=== PATIENT | male | born 1950 | race Caucasian/White ===

== ENCOUNTER → 2017-05-13 | Day surgery (SDC) | payer OTHER ==
[~2017-05-13] VITALS: Ht 167.6 cm; Wt 93.9 kg
[~2017-05-13] MED LIST: ACETAMINOPHEN 325 MG TAB PO PRN; ALBUMIN 25% INJ 100 ML IV PRN; AMLO5TAB2 PO; APIX2.5T PO; ASMA220A INH; ATOR40TA16 PO; BETA10SO TOPICAL; BUPIVACAINE HCL PF 0.5% 30 ML VIAL ONE; CHLORHEXIDINE GLUCONATE 2 % 1 PACK (2 CLOTHS) TOPICAL PRN; COLL30T TOPICAL; FAMO20TA2 PO; FURO1TAB60 PO; GELATIN 12 MM/7 MM FOAM TOP PRN; GENTAMICIN SULFATE (DIALYSIS USE ONLY) 20 MG/2 ML VIAL OTHER PRN; HEPARIN SODIUM - IV 10,000 UNITS/10 ML VIAL IV FLUSH PRN; HEPARIN SODIUM - IV 10,000 UNITS/10 ML VIAL ONE; HEPARIN SODIUM - IV 10,000 UNITS/10 ML VIAL PRN; HEPARIN-NS/PF INJ 0 ML ONE; HUMA100I3 SQ; HYDR-3799 PO; INSU1INJ5 SQ; INSULIN HUMAN REGULAR 1,000 UNITS/10 ML VIAL SQ PRN; IPRASOL INH; LACTATED RINGER'S 1000 ML IV PRN; LISI2.5T3 PO; MANNITOL 12.5 GM/50 ML VIAL IV PRN; METO25TA3 PO; METO5TAB PO; METOPROLOL TARTRATE 25 MG TAB PO PRN; NITROGLYCERIN 0.4 MG SL 25 TABS/BTL SL PRN; ONDANSETRON HCL 4 MG/2 ML VIAL IV PUSH PRN; POTA-163 PO; POVIDONE IODINE 5% (ANTISEPSIS KIT) 4 APPLICATIONS EACH NARE PRN; PROTAMINE SULFATE 50 MG/5 ML VIAL ONE; RESP: ALBUTEROL 2.5 MG/IPRATROPIUM 0.5 MG NEB (PRN) ONE; SODIUM CHLOR 0.9% 1000 ML INJ 1,000 ML IV PRN; SODIUM CHLOR 0.9% 1000 ML INJ 1,000 ML OTHER PRN; SODIUM CHLORID 0.9% 500 ML IV PRN; SODIUM CHLORIDE 0.9% FLUSH 10 ML FLUSH IV FLUSH PRN; VITA250C3 CHEW; ceFAZolin 2 GM PREMIX 0 ML ONE; cloNIDine HCL 0.1 MG TAB PO PRN; diphenhydrAMINE HCL 25 MG CAP PO PRN
[2017-05-13 08:35] LABS: HEMATOCRIT 34.6 % (39.0-51.0); MEAN CORPUSCULAR HEMOGLOBIN 25.9 PG (27.0-34.0); MEAN CORPUSCULAR HGB CONC 30.4 % (32.0-36.0); PLATELET COUNT 360 TH/MM3 (150-450); RED BLOOD COUNT 4.07 MIL/MM3 (4.50-5.90); RED CELL DISTRIBUTION WIDTH 18.5 % (11.6-17.2); WHITE BLOOD COUNT 23.3 TH/MM3 (4.0-11.0)
[2017-05-13 08:36] LABS: HEMO FLAGS AUTO DIFF
--- NOTE | 2017-05-13 08:36 | PD.VS.PN ---
Pre-operative Note Pre-operative diagnosis: B LE tissue loss, PAD Planned procedure: Aortogram w/ B LE angiogram with possible intervention Interval History: Pt dana HD this week-end. No F/C or other change that would preclude surgery. Labs: Laboratory Results Test 05/13/17 08:15 Blood: none needed Imaging: will make in OR Orders: NPO Post-operative destination: PACU Operative site marked: No (bilateral) Consent: Informed consent has been obtained from Griselda Degroot. I have explained the procedure in detail and discussed the risks, benefits, and potential complications. All questions have been answered. Patient contact information: "Toña" [phone] Elliott Almaguer MD May 13, 2017 08:36
[2017-05-13 08:40] LABS: INTERNATIONAL NORMALIZED RATIO 1.2 RATIO
[2017-05-13 08:46] LABS: BICARBONATE 24.5 MEQ/L (21.0-32.0); POTASSIUM 6.1 MEQ/L (3.5-5.1)
--- NOTE | 2017-05-13 09:20 | PD.VS.PN ---
Subjective Subjective/Hospital Course Pt with hyperkalemia despite having regular HD Sat. Needs to be lower for GETA for planned intervention. will reschedule Objective Vitals/I&O Date Time Temp Pulse Resp B/P (MAP) Pulse Ox O2 Delivery O2 Flow Rate FiO2 05/13/17 08:11 98.2 62 24 124/60 (81) 92 Laboratory Laboratory Tests Test 05/13/17 08:15 White Blood Count 23.3 Red Blood Count 4.07 Hemoglobin 10.5 Hematocrit 34.6 Mean Corpuscular Volume 85.0 Mean Corpuscular Hemoglobin 25.9 Mean Corpuscular Hemoglobin Concent 30.4 Red Cell Distribution Width 18.5 Platelet Count 360 Mean Platelet Volume 9.5 CBC Comment AUTO DIFF Prothrombin Time 12.0 Prothromb Time International Ratio 1.2 Blood Urea Nitrogen 37 Creatinine 5.00 Random Glucose 116 Calcium Level 9.1 Sodium Level 137 Potassium Level 6.1 Chloride Level 107 Carbon Dioxide Level 24.5 Anion Gap 6 Estimat Glomerular Filtration Rate 12 Assessment and Plan Plan reschedule B LE angiogram. Discharge Planning My office will call for new OR date. Elliott Almaguer MD May 13, 2017 09:20
[2017-05-13 09:32] LABS: NEUTROPHIL # MANUAL DIFF 21.4 TH/MM3 (1.8-7.7); PLATELET ESTIMATE SMEAR NORMAL (NORMAL); PLATELET MORPHOLOGY NORMAL (NORMAL); POLYS (SEG NEUTROPHILS) 92 % (16-70); SCAN/DIFF FINAL DIFF MANUAL; TOXIC VACUOLATION PRESENT (NONE SEEN); WBC DIFF SAMPLE 100
--- NOTE | 2017-05-13 11:56 | PD.CONS ---
HPI Service Nephrology Consult Requested By Reason for Consult ESRD on HD, hyperkalemia Primary Care Physician No Primary Care Physician History of Present Illness This is a 66 y/o German speaking male who is in same day surgery for planned angiogram of lower extremiites. He has ESRD is on HD TTS, due tomorrow, also has DM, anemia, HTN. His K is 6.1 today, procedure was cancelled. We were consulted to assist with management. His is present. (Bouchra Mccurdy) Review of Systems ROS Limitations: Language Barrier Constitutional: COMPLAINS OF: Fatigue (Bouchra Mccurdy) Past Family Social History Allergies: Coded Allergies: No Known Allergies (Unverified , 05/13/17) Past Medical History ESRD on HD TTS Anemia Metabolic bone disorder DM II PVD/PAD Past Surgical History Permcath Reported Medications He cannot recall names of medications Active Ordered Medications Current Medications Medications (Trade) Dose Ordered Sig/Henrik Route Start Time Stop Time Status Last Admin Lactated Ringer's 1,000 ml @ 30 mls/hr Q24H PRN IV 05/13/17 08:30 05/16/17 08:29 Sodium Chloride 500 ml @ 30 mls/hr [id number] PRN IV 05/13/17 08:30 05/16/17 08:29 05/13/17 08:24 (Lopressor) 25 mg HYPERION DEVELOPER PRN PO 05/13/17 08:30 05/16/17 08:29 (Betadine 5% Antisepsis Kit) 1 applic HYPERION DEVELOPER PRN EACH NARE 05/13/17 08:30 05/16/17 08:29 05/13/17 08:24 (Chlorhexidine 2% Cloth) 3 pack HYPERION DEVELOPER PRN TOPICAL 05/13/17 08:30 05/16/17 08:29 05/13/17 08:24 (NovoLIN R INJ) See Protocol Table ... HYPERION DEVELOPER PRN SQ 05/13/17 08:30 05/16/17 08:29 Family History Non contributory Social History Non smoker He is (Bouchra Mccurdy) Physical Exam Vital Signs Vital Signs Date Time Temp Pulse Resp B/P (MAP) Pulse Ox O2 Delivery O2 Flow Rate FiO2 05/13/17 08:11 98.2 62 24 124/60 (81) 92 Physical Exam male, awake and alert German speaking S1/S2, RRR Lungs clear Ext with minor edema, poor pulses Permcath right chest Laboratory Laboratory Tests Test 05/13/17 08:15 White Blood Count 23.3 Red Blood Count 4.07 Hemoglobin 10.5 Hematocrit 34.6 Mean Corpuscular Volume 85.0 Mean Corpuscular Hemoglobin 25.9 Mean Corpuscular Hemoglobin Concent 30.4 Red Cell Distribution Width 18.5 Platelet Count 360 Mean Platelet Volume 9.5 CBC Comment AUTO DIFF Differential Total Cells Counted 100 Neutrophils % (Manual) 92 Lymphocytes % 6 Monocytes % 2 Neutrophils # (Manual) 21.4 Differential Comment FINAL DIFF MANUAL Toxic Vacuolation PRESENT Platelet Estimate NORMAL Platelet Morphology Comment NORMAL Prothrombin Time 12.0 Prothromb Time International Ratio 1.2 Blood Urea Nitrogen 37 Creatinine 5.00 Random Glucose 116 Calcium Level 9.1 Sodium Level 137 Potassium Level 6.1 Chloride Level 107 Carbon Dioxide Level 24.5 Anion Gap 6 Estimat Glomerular Filtration Rate 12 (Bouchra Mccurdy) Result Diagram: 05/13/17 0815 05/13/17 0815 Assessment and Plan Problem List: (1) ESRD (end stage renal disease) ICD Codes: N18.6 - End stage renal disease Plan: Dialysis today, orders entered. After dialysis he can be discharged He can resume outpatient TTS HD tomorrow Tolerating oral fluids/food Has Permcath for HD (2) Hyperkalemia ICD Codes: E87.5 - Hyperkalemia Plan: Dialysis today on a 1K bath Low K discussed Should be placed on D10 if he is NPO next admission to prevent hyperkalemia (3) PAD (peripheral artery disease) ICD Codes: I73.9 - Peripheral vascular disease, unspecified Plan: To follow with vascular after discharge (4) Diabetes ICD Codes: E11.9 - Type 2 diabetes mellitus without complications Plan: Insulin as needed (Bouchra Mccurdy) Assessment and Plan patient was seen and examined. Dialysis today on account of hyperkalemia. Discussed with the patient and his . (Jimmy Shah MD) Bouchra Mccurdy May 13, 2017 11:56 Jimmy Shah MD May 13, 2017 20:48
[2017-05-13 16:30] VITALS: BP 139/63; PULSE 103; RESP 18; TEMP 98.6; O2SAT 93
--- NOTE | 2017-05-13 16:32 | EKG ---
Date Performed: 05/13/2017 Time Performed: 06:50:43 PTAGE: 66 years EKG: Sinus rhythm BORDERLINE LEFT AXIS DEVIATION LEFT VENTRICULAR HYPERTROPHY AND ST-T CHANGE ABNORMAL ECG NO PREVIOUS TRACING DOCTOR: Harrison Michaud Interpretating Date/Time 05/13/2017 16:30:57
== END | disposition home or self-care (01) ==
LOC: HSDC 05:33
PROVIDERS: ATTEND Surgery
DX: I73.9 Peripheral vascular disease, unspecified (principal); E87.5 Hyperkalemia; N18.6 End stage renal disease; D63.1 Anemia in chronic kidney disease; I12.0 Hypertensive chronic kidney disease with stage 5 chronic kidney disease or end stage renal disease; E11.9 Type 2 diabetes mellitus without complications; Z99.2 Dependence on renal dialysis; Z79.4 Long term (current) use of insulin; Z53.09 Procedure and treatment not carried out because of other contraindication
CPT/HCPCS: 80048; 82948; 85007; 85027; 85610; 90935; 93005; 94664; 96374; 99211; J7040; G0463; J0690; J1644; J2720

== ENCOUNTER 2017-05-30 22:28 | Inpatient (IN) | payer OTHER ==
[2017-05-31 00:41] LABS: AUTOMATED NEUTROPHIL # 12.7 TH/MM3 (1.8-7.7); BASOPHIL # 0.1 TH/MM3 (0-0.2); BASOPHIL % 0.6 % (0.0-2.0); EOSINOPHIL # 0.3 TH/MM3 (0-0.4); HEMATOCRIT 34.2 % (39.0-51.0); HEMO FLAGS DIFF FINAL; HEMOGLOBIN 10.7 GM/DL (13.0-17.0); LYMPH % 8.9 % (9.0-44.0); LYMPHOCYTE # 1.4 TH/MM3 (1.0-4.8); MEAN CELL VOLUME 80.8 FL (80.0-100.0); MEAN CORPUSCULAR HEMOGLOBIN 25.3 PG (27.0-34.0); MEAN CORPUSCULAR HGB CONC 31.2 % (32.0-36.0); MEAN PLATELET VOLUME 8.8 FL (7.0-11.0); MONO % 6.6 % (0.0-8.0); NEUT % 81.9 % (16.0-70.0); PLATELET COUNT 344 TH/MM3 (150-450); RED BLOOD COUNT 4.23 MIL/MM3 (4.50-5.90); WHITE BLOOD COUNT 15.5 TH/MM3 (4.0-11.0)
[2017-05-31 01:05] LABS: ALBUMIN 2.3 GM/DL (3.4-5.0); ALKALINE PHOSPHATASE 661 U/L (45-117); ALT (GPT) 29 U/L (12-78); ANION GAP 8 MEQ/L (5-15); AST (GOT) 54 U/L (15-37); BICARBONATE 24.5 MEQ/L (21.0-32.0); BLOOD UREA NITROGEN 34 MG/DL (7-18); CALCIUM 8.6 MG/DL (8.5-10.1); CHLORIDE 105 MEQ/L (98-107); CREATININE 3.91 MG/DL (0.60-1.30); GLOMERULAR FILTRATION RATE 15 ML/MIN (>89); GLUCOSE,RANDOM 123 MG/DL (74-106); SODIUM (NA) 137 MEQ/L (136-145); TOTAL BILIRUBIN ADULT 0.5 MG/DL (0.2-1.0); TOTAL PROTEIN 7.8 GM/DL (6.4-8.2)
[2017-05-31 01:13] LABS: POTASSIUM 6.6 MEQ/L (3.5-5.1)
[2017-05-31] MEDS: VANCOMYCIN INJ 1,000 MG in SODIUM CHLOR 0.9% 250 ML INJ 250 ML IV (02:12)
[2017-05-31] MEDS ORDERED: MAGNESIUM HYDROXIDE SUSP 30 ML CUP PO (03:00)
[2017-05-31] MEDS ORDERED: SENNOSIDES 8.6 MG TAB PO (03:00)
[2017-05-31] MEDS ORDERED: HEPARIN SODIUM - SQ 10,000 UNITS/ML VIAL SQ (03:00)
[2017-05-31] MEDS ORDERED: ACETAMINOPHEN 325 MG TAB PO (03:00)
[2017-05-31] MEDS ORDERED: LACTULOSE SYRUP 20 GM/30 ML CUP PO (03:00)
[2017-05-31] MEDS ORDERED: SODIUM CHLORIDE 0.9% FLUSH 10 ML FLUSH IV FLUSH ×3 (03:00→15:30)
[2017-05-31] MEDS ORDERED: ONDANSETRON HCL 4 MG/2 ML VIAL IVP (03:00)
[2017-05-31] MEDS ORDERED: BISACODYL 10 MG SUPP RECTAL (03:00)
[2017-05-31] MEDS ORDERED: hydrALAZINE HCL 25 MG TAB PO (03:00)
[2017-05-31] MEDS: SODIUM POLYSTYRENE SULFONATE SUSP 15 GM/60 ML CUP PO ×2 (03:00→15:00)
[2017-05-31] MEDS ORDERED: NALOXONE HCL 0.4 MG/ML AMP IV PUSH (03:00)
[2017-05-31] MEDS: MOMETASONE INH ×2 (09:00→21:00)
[2017-05-31] MEDS: INSULIN DETEMIR 100 UNITS/ML VIAL SQ ×2 (09:00→23:00)
[2017-05-31] MEDS: SODIUM CHLORIDE 0.9% FLUSH 10 ML FLUSH IV FLUSH ×2 (09:00→22:57)
[2017-05-31] MEDS: APIXABAN 2.5 MG TABLET PO (09:00)
[2017-05-31] MEDS ORDERED: SODIUM CHLOR 0.9% 1000 ML INJ 1,000 ML IV (09:34)
[2017-05-31] MEDS ORDERED: SODIUM CHLOR 0.9% 1000 ML INJ 1,000 ML OTHER ×3 (09:34→15:25)
[2017-05-31] MEDS ORDERED: diphenhydrAMINE HCL 25 MG CAP PO (09:45)
[2017-05-31] MEDS ORDERED: GLUCAGON 1 MG/ML VIAL OTHER (09:45)
[2017-05-31] MEDS ORDERED: HEPARIN SODIUM - IV 10,000 UNITS/10 ML VIAL (09:45)
[2017-05-31] MEDS ORDERED: ONDANSETRON HCL 4 MG/2 ML VIAL IV PUSH ×2 (09:45→15:30)
[2017-05-31] MEDS ORDERED: GENTAMICIN SULFATE 20 MG/2 ML VIAL OTHER (09:45)
[2017-05-31] MEDS ORDERED: MANNITOL 12.5 GM/50 ML VIAL IV ×2 (09:45→15:30)
[2017-05-31] MEDS ORDERED: HEPARIN SODIUM - IV 10,000 UNITS/10 ML VIAL IV FLUSH ×2 (09:45→15:30)
[2017-05-31] MEDS ORDERED: cloNIDine HCL 0.1 MG TAB PO ×2 (09:45→15:30)
[2017-05-31] MEDS ORDERED: GELATIN 12 MM/7 MM FOAM TOP ×2 (09:45→15:30)
[2017-05-31] MEDS ORDERED: NITROGLYCERIN 0.4 MG SL 25 TABS/BTL SL ×2 (09:45→15:30)
[2017-05-31] MEDS ORDERED: ALBUMIN 25% INJ 100 ML IV ×2 (09:45→15:30)
[2017-05-31] MEDS: amLODIPine BESYLATE 5 MG TAB PO (09:57)
[2017-05-31] MEDS: FAMOTIDINE 20 MG TAB PO (09:57)
[2017-05-31] MEDS: LISINOPRIL 5 MG TAB PO ×2 (09:57→22:56)
[2017-05-31] MEDS: FUROSEMIDE 40 MG TAB PO ×2 (09:57→22:57)
[2017-05-31] MEDS: METOPROLOL TARTRATE 25 MG TAB PO ×2 (09:57→22:55)
[2017-05-31] MEDS: DOCUSATE SODIUM 50 MG/SENNA 8.6 MG TAB PO ×2 (09:58→21:00)
[2017-05-31] MEDS: ESCITALOPRAM OXALATE 10 MG TAB PO (09:58)
[2017-05-31 11:07] LABS: POTASSIUM 5.6 MEQ/L (3.5-5.1)
[2017-05-31] MEDS: INSULIN ASPART SUPPLEMENTAL SCALE SQ ×3 (12:00→23:00)
[2017-05-31] MEDS: ACETAMINOPHEN 325 MG TAB PO (15:00)
[2017-05-31] MEDS: ATORVASTATIN 40 MG TAB PO (22:54)
[2017-06-01] MEDS: INSULIN ASPART SUPPLEMENTAL SCALE SQ ×4 (08:00→21:00)
[2017-06-01] MEDS: MOMETASONE INH ×2 (09:00→21:00)
[2017-06-01] MEDS: DEXTROSE 50% IN WATER 50 ML VIAL(D50) IV PUSH ×2 (11:28→11:50)
[2017-06-01] MEDS: SODIUM CHLOR 0.9% 1000 ML INJ 1,000 ML IV (11:28)
[2017-06-01] MEDS: GENTAMICIN SULFATE 20 MG/2 ML VIAL OTHER (11:29)
[2017-06-01] MEDS: EPOETIN ALFA 10,000 UNITS/ML VIAL IV PUSH (11:29)
[2017-06-01] MEDS: HEPARIN SODIUM - IV 10,000 UNITS/10 ML VIAL (11:29)
[2017-06-01] MEDS: SODIUM CHLORIDE 0.9% FLUSH 10 ML FLUSH IV FLUSH ×2 (13:17→22:10)
[2017-06-01] MEDS: METOPROLOL TARTRATE 25 MG TAB PO ×2 (13:18→22:11)
[2017-06-01] MEDS: LISINOPRIL 5 MG TAB PO ×2 (13:18→22:12)
[2017-06-01] MEDS: FAMOTIDINE 20 MG TAB PO (13:18)
[2017-06-01] MEDS: amLODIPine BESYLATE 5 MG TAB PO (13:19)
[2017-06-01] MEDS: FUROSEMIDE 40 MG TAB PO ×2 (13:19→22:11)
[2017-06-01] MEDS: DOCUSATE SODIUM 50 MG/SENNA 8.6 MG TAB PO ×2 (13:19→21:00)
[2017-06-01] MEDS: ESCITALOPRAM OXALATE 10 MG TAB PO (13:19)
[2017-06-01] MEDS: INSULIN DETEMIR 100 UNITS/ML VIAL SQ ×2 (13:20→21:00)
[2017-06-01 16:43] LABS: HEMATOCRIT 32.4 % (39.0-51.0); HEMOGLOBIN 10.1 GM/DL (13.0-17.0); MEAN CELL VOLUME 79.9 FL (80.0-100.0); MEAN CORPUSCULAR HGB CONC 31.3 % (32.0-36.0); MEAN PLATELET VOLUME 8.7 FL (7.0-11.0); PLATELET COUNT 323 TH/MM3 (150-450); RED BLOOD COUNT 4.05 MIL/MM3 (4.50-5.90); RED CELL DISTRIBUTION WIDTH 19.1 % (11.6-17.2); WHITE BLOOD COUNT 13.9 TH/MM3 (4.0-11.0)
[2017-06-01 16:46] LABS: HEMO FLAGS AUTO DIFF
[2017-06-01 16:47] LABS: HEMATOLOGY STUDY COMMENT ND
[2017-06-01 17:15] LABS: ANION GAP 8 MEQ/L (5-15); BICARBONATE 29.2 MEQ/L (21.0-32.0); BLOOD UREA NITROGEN 25 MG/DL (7-18); CALCIUM 8.6 MG/DL (8.5-10.1); CHLORIDE 101 MEQ/L (98-107); CREATININE 3.52 MG/DL (0.60-1.30); GLOMERULAR FILTRATION RATE 17 ML/MIN (>89); GLUCOSE,RANDOM 66 MG/DL (74-106); POTASSIUM 3.8 MEQ/L (3.5-5.1); SODIUM (NA) 138 MEQ/L (136-145)
[2017-06-01 17:39] LABS: BANDS 2 % (0-6); LYMPHOCYTES 11 % (9-44); MONOCYTES 9 % (0-8); NEUTROPHIL # MANUAL DIFF 11.1 TH/MM3 (1.8-7.7); POLYS (SEG NEUTROPHILS) 78 % (16-70); WBC DIFF SAMPLE 100
[2017-06-01 17:40] LABS: SCAN/DIFF FINAL DIFF MANUAL
[2017-06-01] MEDS: ACETAMINOPHEN 325 MG TAB PO (18:13)
[2017-06-01] MEDS: ATORVASTATIN 40 MG TAB PO (22:11)
[2017-06-02] MEDS: ACETAMINOPHEN 325 MG TAB PO ×2 (02:14→21:32)
[2017-06-02] MEDS: RESP: ALBUTEROL 2.5 MG/IPRATROPIUM 0.5 MG NEB (SCH) INH ×3 (04:36→20:57)
[2017-06-02] MEDS: INSULIN ASPART SUPPLEMENTAL SCALE SQ ×4 (08:00→21:31)
[2017-06-02] MEDS: INSULIN DETEMIR 100 UNITS/ML VIAL SQ ×2 (08:22→21:00)
[2017-06-02] MEDS: amLODIPine BESYLATE 5 MG TAB PO (08:36)
[2017-06-02] MEDS: METOPROLOL TARTRATE 25 MG TAB PO ×2 (08:36→21:30)
[2017-06-02] MEDS: ESCITALOPRAM OXALATE 10 MG TAB PO (08:38)
[2017-06-02] MEDS: LISINOPRIL 5 MG TAB PO ×2 (08:38→21:30)
[2017-06-02] MEDS: FUROSEMIDE 40 MG TAB PO ×2 (08:38→21:30)
[2017-06-02] MEDS: FAMOTIDINE 20 MG TAB PO (08:38)
[2017-06-02] MEDS: DOCUSATE SODIUM 50 MG/SENNA 8.6 MG TAB PO ×2 (08:38→21:00)
[2017-06-02] MEDS: SODIUM CHLORIDE 0.9% FLUSH 10 ML FLUSH IV FLUSH ×2 (08:39→21:29)
[2017-06-02] MEDS: MOMETASONE INH ×2 (09:00→21:00)
[2017-06-02] MEDS: ATORVASTATIN 40 MG TAB PO (21:29)
[2017-06-03 07:56] LABS: ANION GAP 10 MEQ/L (5-15); BICARBONATE 22.7 MEQ/L (21.0-32.0); BLOOD UREA NITROGEN 41 MG/DL (7-18); CALCIUM 8.2 MG/DL (8.5-10.1); CHLORIDE 101 MEQ/L (98-107); CREATININE 5.52 MG/DL (0.60-1.30); GLOMERULAR FILTRATION RATE 10 ML/MIN (>89); GLUCOSE,RANDOM 125 MG/DL (74-106); POTASSIUM 4.7 MEQ/L (3.5-5.1); SODIUM (NA) 134 MEQ/L (136-145)
[2017-06-03] MEDS: INSULIN ASPART SUPPLEMENTAL SCALE SQ ×4 (08:00→22:45)
[2017-06-03] MEDS: RESP: ALBUTEROL 2.5 MG/IPRATROPIUM 0.5 MG NEB (SCH) INH ×2 (08:03→20:44)
[2017-06-03] MEDS: MOMETASONE INH ×2 (09:00→21:00)
[2017-06-03] MEDS: INSULIN DETEMIR 100 UNITS/ML VIAL SQ ×2 (09:00→22:46)
[2017-06-03] MEDS: IOHEXOL 300 MG/ML 100 ML BTL (for Rad CT) OTHER (10:05)
[2017-06-03] MEDS: HEPARIN-NS/PF INJ 500 ML (10:05)
[2017-06-03] MEDS: BUPIVACAINE HCL PF 0.5% 30 ML VIAL (10:05)
[2017-06-03] MEDS ORDERED: DO NOT ADM ANY ANTICOAGULANT DRUGS (12:00)
[2017-06-03] MEDS: amLODIPine BESYLATE 5 MG TAB PO (13:40)
[2017-06-03] MEDS: FUROSEMIDE 40 MG TAB PO ×2 (13:41→22:26)
[2017-06-03] MEDS: DOCUSATE SODIUM 50 MG/SENNA 8.6 MG TAB PO ×2 (13:42→21:00)
[2017-06-03] MEDS: ESCITALOPRAM OXALATE 10 MG TAB PO (13:42)
[2017-06-03] MEDS: FAMOTIDINE 20 MG TAB PO (13:43)
[2017-06-03] MEDS: METOPROLOL TARTRATE 25 MG TAB PO ×2 (13:45→22:26)
[2017-06-03] MEDS: SODIUM CHLORIDE 0.9% FLUSH 10 ML FLUSH IV FLUSH ×2 (13:46→22:30)
[2017-06-03] MEDS: LISINOPRIL 5 MG TAB PO ×2 (14:29→22:27)
[2017-06-03] MEDS: ACETAMINOPHEN/HYDROcodone 325 MG/5 MG TAB PO ×2 (17:44→22:38)
[2017-06-03] MEDS: ATORVASTATIN 40 MG TAB PO (22:26)
[2017-06-04 07:09] LABS: PHOSPHORUS 7.2 MG/DL (2.5-4.9)
[2017-06-04] MEDS: RESP: ALBUTEROL 2.5 MG/IPRATROPIUM 0.5 MG NEB (SCH) INH ×2 (07:44→20:24)
[2017-06-04] MEDS: INSULIN ASPART SUPPLEMENTAL SCALE SQ ×3 (08:00→21:00)
[2017-06-04] MEDS: MOMETASONE INH ×2 (08:34→21:00)
[2017-06-04] MEDS: DOCUSATE SODIUM 50 MG/SENNA 8.6 MG TAB PO ×2 (09:00→21:00)
[2017-06-04] MEDS: METOPROLOL TARTRATE 25 MG TAB PO ×2 (10:18→21:54)
[2017-06-04] MEDS: FUROSEMIDE 40 MG TAB PO ×2 (10:19→21:54)
[2017-06-04] MEDS: FAMOTIDINE 20 MG TAB PO (10:19)
[2017-06-04] MEDS: ESCITALOPRAM OXALATE 10 MG TAB PO (10:20)
[2017-06-04] MEDS: amLODIPine BESYLATE 5 MG TAB PO (10:20)
[2017-06-04] MEDS: LISINOPRIL 5 MG TAB PO ×2 (10:21→21:55)
[2017-06-04] MEDS: INSULIN DETEMIR 100 UNITS/ML VIAL SQ ×2 (11:38→21:00)
[2017-06-04] MEDS: SEVELAMER CARBONATE 800 MG TAB PO ×2 (12:00→17:00)
[2017-06-04] MEDS: DEXTROSE 50% IN WATER 50 ML VIAL(D50) IV PUSH (13:29)
[2017-06-04] MEDS: SODIUM CHLORIDE 0.9% FLUSH 10 ML FLUSH IV FLUSH ×2 (13:39→21:56)
[2017-06-04 14:23] LABS: AUTOMATED NEUTROPHIL # 13.1 TH/MM3 (1.8-7.7); BASOPHIL # 0.1 TH/MM3 (0-0.2); BASOPHIL % 0.8 % (0.0-2.0); EOSINOPHIL # 0.3 TH/MM3 (0-0.4); EOSINOPHIL % 1.8 % (0.0-4.0); HEMATOCRIT 28.4 % (39.0-51.0); HEMO FLAGS DIFF FINAL; HEMOGLOBIN 8.8 GM/DL (13.0-17.0); LYMPH % 7.2 % (9.0-44.0); LYMPHOCYTE # 1.1 TH/MM3 (1.0-4.8); MEAN CELL VOLUME 79.9 FL (80.0-100.0); MEAN CORPUSCULAR HEMOGLOBIN 24.7 PG (27.0-34.0); MEAN PLATELET VOLUME 8.9 FL (7.0-11.0); MONO % 7.1 % (0.0-8.0); MONOCYTE # 1.1 TH/MM3 (0-0.9); NEUT % 83.1 % (16.0-70.0); PLATELET COUNT 342 TH/MM3 (150-450); RED BLOOD COUNT 3.56 MIL/MM3 (4.50-5.90); RED CELL DISTRIBUTION WIDTH 19.1 % (11.6-17.2); WHITE BLOOD COUNT 15.8 TH/MM3 (4.0-11.0)
[2017-06-04 14:49] LABS: ANION GAP 11 MEQ/L (5-15); BICARBONATE 27.2 MEQ/L (21.0-32.0); BLOOD UREA NITROGEN 53 MG/DL (7-18); CHLORIDE 98 MEQ/L (98-107); CREATININE 6.72 MG/DL (0.60-1.30); GLOMERULAR FILTRATION RATE 8 ML/MIN (>89); GLUCOSE,RANDOM 99 MG/DL (74-106); POTASSIUM 4.4 MEQ/L (3.5-5.1); SODIUM (NA) 136 MEQ/L (136-145)
[2017-06-04] MEDS: GENTAMICIN SULFATE 20 MG/2 ML VIAL OTHER (18:00)
[2017-06-04] MEDS: SODIUM CHLOR 0.9% 1000 ML INJ 1,000 ML OTHER (18:00)
[2017-06-04] MEDS: HEPARIN SODIUM - IV 10,000 UNITS/10 ML VIAL (18:00)
[2017-06-04] MEDS: ATORVASTATIN 40 MG TAB PO (21:54)
[2017-06-05] MEDS: ACETAMINOPHEN/HYDROcodone 325 MG/5 MG TAB PO (07:45)
[2017-06-05] MEDS: RESP: ALBUTEROL 2.5 MG/IPRATROPIUM 0.5 MG NEB (SCH) INH ×2 (07:56→19:48)
[2017-06-05] MEDS: SEVELAMER CARBONATE 800 MG TAB PO ×3 (08:00→17:00)
[2017-06-05] MEDS: INSULIN ASPART SUPPLEMENTAL SCALE SQ ×4 (08:00→21:00)
[2017-06-05] MEDS: INSULIN DETEMIR 100 UNITS/ML VIAL SQ ×2 (09:00→21:00)
[2017-06-05] MEDS: DOCUSATE SODIUM 50 MG/SENNA 8.6 MG TAB PO ×2 (09:00→21:00)
[2017-06-05] MEDS: FAMOTIDINE 20 MG TAB PO (11:48)
[2017-06-05] MEDS: METOPROLOL TARTRATE 25 MG TAB PO ×2 (11:48→21:25)
[2017-06-05] MEDS: LISINOPRIL 5 MG TAB PO ×2 (11:49→21:25)
[2017-06-05] MEDS: FUROSEMIDE 40 MG TAB PO ×2 (11:49→21:00)
[2017-06-05] MEDS: amLODIPine BESYLATE 5 MG TAB PO (11:49)
[2017-06-05] MEDS: ESCITALOPRAM OXALATE 10 MG TAB PO (11:49)
[2017-06-05] MEDS: MOMETASONE INH (21:00)
[2017-06-05] MEDS: ATORVASTATIN 40 MG TAB PO (21:25)
[2017-06-05] MEDS: SODIUM CHLORIDE 0.9% FLUSH 10 ML FLUSH IV FLUSH (21:26)
[2017-06-06] MEDS ORDERED: VANCOMYCIN 1 GM/200 ML INJ 200 ML IV (00:30)
[2017-06-06] MEDS: LEVOFLOXACIN 750 MG PREMIX INJ 150 ML IV (01:25)
[2017-06-06] MEDS: VANCOMYCIN 1,000 MG/NS 250 ML IV (01:26)
[2017-06-06] MEDS: INSULIN ASPART SUPPLEMENTAL SCALE SQ ×4 (08:00→20:53)
[2017-06-06] MEDS: MOMETASONE INH ×2 (09:00→20:51)
[2017-06-06] MEDS: SEVELAMER CARBONATE 800 MG TAB PO ×3 (09:47→18:25)
[2017-06-06] MEDS: FAMOTIDINE 20 MG TAB PO (09:47)
[2017-06-06] MEDS: DOCUSATE SODIUM 50 MG/SENNA 8.6 MG TAB PO ×2 (09:48→20:52)
[2017-06-06] MEDS: METOPROLOL TARTRATE 25 MG TAB PO ×2 (09:48→20:52)
[2017-06-06] MEDS: SODIUM CHLORIDE 0.9% FLUSH 10 ML FLUSH IV FLUSH ×2 (09:48→20:52)
[2017-06-06] MEDS: LISINOPRIL 5 MG TAB PO ×2 (09:48→20:52)
[2017-06-06] MEDS: amLODIPine BESYLATE 5 MG TAB PO (09:48)
[2017-06-06] MEDS: FUROSEMIDE 40 MG TAB PO ×2 (09:48→20:52)
[2017-06-06] MEDS: ESCITALOPRAM OXALATE 10 MG TAB PO (09:48)
[2017-06-06] MEDS: COLLAGENASE OINT 30 GM TUBE TOPICAL ×2 (09:49→09:50)
[2017-06-06] MEDS: INSULIN DETEMIR 100 UNITS/ML VIAL SQ ×2 (09:50→20:53)
[2017-06-06 11:14] LABS: HEMOGLOBIN A1C 6.3 % (4.3-6.0); HEMOGLOBIN A1a 2.9 %; HEMOGLOBIN A1b 1.9 %; HEMOGLOBIN Ao 81.2 %; HEMOGLOBIN LA1C 2.6 %
[2017-06-06 13:48] LABS: AUTOMATED NEUTROPHIL # 11.1 TH/MM3 (1.8-7.7); BASOPHIL # 0.1 TH/MM3 (0-0.2); BASOPHIL % 0.6 % (0.0-2.0); EOSINOPHIL # 0.3 TH/MM3 (0-0.4); HEMATOCRIT 29.5 % (39.0-51.0); HEMO FLAGS DIFF FINAL; HEMOGLOBIN 9.2 GM/DL (13.0-17.0); LYMPHOCYTE # 1.1 TH/MM3 (1.0-4.8); MEAN CELL VOLUME 78.5 FL (80.0-100.0); MEAN CORPUSCULAR HEMOGLOBIN 24.4 PG (27.0-34.0); MEAN CORPUSCULAR HGB CONC 31.1 % (32.0-36.0); MEAN PLATELET VOLUME 8.9 FL (7.0-11.0); MONO % 7.6 % (0.0-8.0); NEUT % 81.8 % (16.0-70.0); PLATELET COUNT 352 TH/MM3 (150-450); RED BLOOD COUNT 3.76 MIL/MM3 (4.50-5.90); RED CELL DISTRIBUTION WIDTH 18.7 % (11.6-17.2); WHITE BLOOD COUNT 13.6 TH/MM3 (4.0-11.0)
[2017-06-06 14:13] LABS: ALBUMIN 1.9 GM/DL (3.4-5.0); ALT (GPT) 12 U/L (12-78); ANION GAP 9 MEQ/L (5-15); AST (GOT) 14 U/L (15-37); BICARBONATE 28.3 MEQ/L (21.0-32.0); BLOOD UREA NITROGEN 47 MG/DL (7-18); CALCIUM 7.9 MG/DL (8.5-10.1); CHLORIDE 98 MEQ/L (98-107); GLOMERULAR FILTRATION RATE 8 ML/MIN (>89); GLUCOSE,RANDOM 116 MG/DL (74-106); MAGNESIUM 2.1 MG/DL (1.5-2.5); PHOSPHORUS 5.9 MG/DL (2.5-4.9); POTASSIUM 4.3 MEQ/L (3.5-5.1); SODIUM (NA) 135 MEQ/L (136-145)
[2017-06-06 14:17] LABS: ALKALINE PHOSPHATASE 445 U/L (45-117); TOTAL BILIRUBIN ADULT 0.4 MG/DL (0.2-1.0); TOTAL PROTEIN 6.6 GM/DL (6.4-8.2)
[2017-06-06] MEDS: ACETAMINOPHEN/HYDROcodone 325 MG/5 MG TAB PO (20:51)
[2017-06-06] MEDS: ATORVASTATIN 40 MG TAB PO (20:52)
[2017-06-06] MEDS: PIPERACIL-TAZO 2.25 GM PREMIX 50 ML IV (21:06)
[2017-06-07] MEDS: PIPERACIL-TAZO 2.25 GM PREMIX 50 ML IV ×3 (05:31→21:00)
[2017-06-07] MEDS: INSULIN ASPART SUPPLEMENTAL SCALE SQ ×4 (08:00→21:20)
[2017-06-07] MEDS: FAMOTIDINE 20 MG TAB PO (08:12)
[2017-06-07] MEDS: FUROSEMIDE 40 MG TAB PO ×2 (08:13→21:13)
[2017-06-07] MEDS: METOPROLOL TARTRATE 25 MG TAB PO ×2 (08:13→21:13)
[2017-06-07] MEDS: ESCITALOPRAM OXALATE 10 MG TAB PO (08:13)
[2017-06-07] MEDS: LISINOPRIL 5 MG TAB PO ×2 (08:13→21:13)
[2017-06-07] MEDS: amLODIPine BESYLATE 5 MG TAB PO (08:13)
[2017-06-07] MEDS: SEVELAMER CARBONATE 800 MG TAB PO ×3 (08:13→18:08)
[2017-06-07] MEDS: DOCUSATE SODIUM 50 MG/SENNA 8.6 MG TAB PO ×2 (08:13→21:00)
[2017-06-07] MEDS: SODIUM CHLORIDE 0.9% FLUSH 10 ML FLUSH IV FLUSH ×2 (08:14→21:00)
[2017-06-07] MEDS: MOMETASONE INH ×2 (08:15→21:00)
[2017-06-07] MEDS: COLLAGENASE OINT 30 GM TUBE TOPICAL (08:15)
[2017-06-07] MEDS: INSULIN DETEMIR 100 UNITS/ML VIAL SQ ×2 (08:15→21:14)
[2017-06-07] MEDS: ACETAMINOPHEN/HYDROcodone 325 MG/5 MG TAB PO (08:22)
[2017-06-07] MEDS: ATORVASTATIN 40 MG TAB PO (21:12)
[2017-06-08] MEDS: SEVELAMER CARBONATE 800 MG TAB PO ×3 (05:49→16:08)
[2017-06-08] MEDS: PIPERACIL-TAZO 2.25 GM PREMIX 50 ML IV ×3 (05:49→21:10)
[2017-06-08] MEDS: INSULIN ASPART SUPPLEMENTAL SCALE SQ ×4 (07:54→21:00)
[2017-06-08] MEDS: INSULIN DETEMIR 100 UNITS/ML VIAL SQ ×2 (08:16→21:00)
[2017-06-08] MEDS: METOPROLOL TARTRATE 25 MG TAB PO ×2 (08:18→21:10)
[2017-06-08] MEDS: FAMOTIDINE 20 MG TAB PO (08:18)
[2017-06-08] MEDS: LISINOPRIL 5 MG TAB PO ×2 (08:18→21:09)
[2017-06-08] MEDS: amLODIPine BESYLATE 5 MG TAB PO (08:19)
[2017-06-08] MEDS: FUROSEMIDE 40 MG TAB PO ×2 (08:19→21:10)
[2017-06-08] MEDS: DOCUSATE SODIUM 50 MG/SENNA 8.6 MG TAB PO ×2 (08:19→21:09)
[2017-06-08] MEDS: ESCITALOPRAM OXALATE 10 MG TAB PO (08:19)
[2017-06-08] MEDS: COLLAGENASE OINT 30 GM TUBE TOPICAL (08:21)
[2017-06-08] MEDS: MOMETASONE INH ×2 (08:28→21:00)
[2017-06-08] MEDS: SODIUM CHLORIDE 0.9% FLUSH 10 ML FLUSH IV FLUSH ×2 (08:28→21:10)
[2017-06-08 08:59] LABS: GLUCOSE,RANDOM 79 MG/DL (74-106)
[2017-06-08] MEDS: HEPARIN SODIUM - IV 10,000 UNITS/10 ML VIAL (10:32)
[2017-06-08] MEDS: GENTAMICIN SULFATE 20 MG/2 ML VIAL OTHER (10:32)
[2017-06-08] MEDS: SODIUM CHLOR 0.9% 1000 ML INJ 1,000 ML IV (10:32)
[2017-06-08] MEDS: EPOETIN ALFA 10,000 UNITS/ML VIAL IV PUSH (10:32)
[2017-06-08] MEDS: VANCOMYCIN INJ 1,000 MG in SODIUM CHLOR 0.9% 250 ML INJ 250 ML IV (10:33)
[2017-06-08 14:32] LABS: AUTOMATED NEUTROPHIL # 12.5 TH/MM3 (1.8-7.7); BASOPHIL # 0.1 TH/MM3 (0-0.2); BASOPHIL % 0.8 % (0.0-2.0); EOSINOPHIL # 0.2 TH/MM3 (0-0.4); EOSINOPHIL % 1.6 % (0.0-4.0); HEMATOCRIT 30.7 % (39.0-51.0); HEMO FLAGS DIFF FINAL; HEMOGLOBIN 9.6 GM/DL (13.0-17.0); LYMPHOCYTE # 1.1 TH/MM3 (1.0-4.8); MEAN CELL VOLUME 77.4 FL (80.0-100.0); MEAN CORPUSCULAR HEMOGLOBIN 24.3 PG (27.0-34.0); MEAN CORPUSCULAR HGB CONC 31.4 % (32.0-36.0); MEAN PLATELET VOLUME 8.4 FL (7.0-11.0); MONO % 9.9 % (0.0-8.0); MONOCYTE # 1.5 TH/MM3 (0-0.9); NEUT % 80.7 % (16.0-70.0); PLATELET COUNT 340 TH/MM3 (150-450); RED BLOOD COUNT 3.96 MIL/MM3 (4.50-5.90); RED CELL DISTRIBUTION WIDTH 18.6 % (11.6-17.2); WHITE BLOOD COUNT 15.4 TH/MM3 (4.0-11.0)
[2017-06-08 15:01] LABS: ALBUMIN 1.9 GM/DL (3.4-5.0); ALKALINE PHOSPHATASE 442 U/L (45-117); ALT (GPT) 8 U/L (12-78); ANION GAP 8 MEQ/L (5-15); AST (GOT) 8 U/L (15-37); BICARBONATE 32.3 MEQ/L (21.0-32.0); BLOOD UREA NITROGEN 21 MG/DL (7-18); CALCIUM 8.1 MG/DL (8.5-10.1); CHLORIDE 95 MEQ/L (98-107); CREATININE 3.63 MG/DL (0.60-1.30); GLOMERULAR FILTRATION RATE 17 ML/MIN (>89); GLUCOSE,RANDOM 90 MG/DL (74-106); POTASSIUM 3.5 MEQ/L (3.5-5.1); SODIUM (NA) 135 MEQ/L (136-145); TOTAL BILIRUBIN ADULT 0.4 MG/DL (0.2-1.0); TOTAL PROTEIN 6.8 GM/DL (6.4-8.2)
[2017-06-08] MEDS: ATORVASTATIN 40 MG TAB PO (21:09)
[2017-06-09] MEDS: PIPERACIL-TAZO 2.25 GM PREMIX 50 ML IV ×3 (05:45→22:08)
[2017-06-09] MEDS: ACETAMINOPHEN/HYDROcodone 325 MG/5 MG TAB PO (06:16)
[2017-06-09] MEDS: SEVELAMER CARBONATE 800 MG TAB PO ×3 (08:00→16:48)
[2017-06-09] MEDS: INSULIN ASPART SUPPLEMENTAL SCALE SQ ×4 (08:00→22:09)
[2017-06-09] MEDS: SODIUM CHLORIDE 0.9% FLUSH 10 ML FLUSH IV FLUSH ×2 (08:00→22:08)
[2017-06-09] MEDS: ESCITALOPRAM OXALATE 10 MG TAB PO (08:01)
[2017-06-09] MEDS: METOPROLOL TARTRATE 25 MG TAB PO ×2 (08:01→22:06)
[2017-06-09] MEDS: DOCUSATE SODIUM 50 MG/SENNA 8.6 MG TAB PO ×2 (08:01→21:00)
[2017-06-09] MEDS: MOMETASONE INH ×2 (08:01→21:00)
[2017-06-09] MEDS: FUROSEMIDE 40 MG TAB PO ×2 (08:01→22:07)
[2017-06-09] MEDS: LISINOPRIL 5 MG TAB PO ×2 (08:01→22:06)
[2017-06-09] MEDS: amLODIPine BESYLATE 5 MG TAB PO (08:01)
[2017-06-09] MEDS: FAMOTIDINE 20 MG TAB PO (08:01)
[2017-06-09] MEDS: INSULIN DETEMIR 100 UNITS/ML VIAL SQ ×2 (08:04→22:08)
[2017-06-09] MEDS: COLLAGENASE OINT 30 GM TUBE TOPICAL (08:05)
[2017-06-09] MEDS: ATORVASTATIN 40 MG TAB PO (22:06)
[2017-06-10] MEDS: PIPERACIL-TAZO 2.25 GM PREMIX 50 ML IV ×3 (05:07→20:55)
[2017-06-10 05:44] LABS: AUTOMATED NEUTROPHIL # 12.3 TH/MM3 (1.8-7.7); BASOPHIL # 0.1 TH/MM3 (0-0.2); BASOPHIL % 0.9 % (0.0-2.0); EOSINOPHIL # 0.3 TH/MM3 (0-0.4); EOSINOPHIL % 1.7 % (0.0-4.0); HEMATOCRIT 35.6 % (39.0-51.0); HEMO FLAGS DIFF FINAL; HEMOGLOBIN 10.9 GM/DL (13.0-17.0); LYMPH % 9.5 % (9.0-44.0); LYMPHOCYTE # 1.5 TH/MM3 (1.0-4.8); MEAN CORPUSCULAR HEMOGLOBIN 24.3 PG (27.0-34.0); MEAN CORPUSCULAR HGB CONC 30.7 % (32.0-36.0); MEAN PLATELET VOLUME 8.9 FL (7.0-11.0); MONO % 9.2 % (0.0-8.0); MONOCYTE # 1.4 TH/MM3 (0-0.9); NEUT % 78.7 % (16.0-70.0); PLATELET COUNT 390 TH/MM3 (150-450); WHITE BLOOD COUNT 15.6 TH/MM3 (4.0-11.0)
[2017-06-10 06:06] LABS: ALKALINE PHOSPHATASE 442 U/L (45-117); ALT (GPT) 12 U/L (12-78); ANION GAP 10 MEQ/L (5-15); AST (GOT) 16 U/L (15-37); BICARBONATE 30.3 MEQ/L (21.0-32.0); BLOOD UREA NITROGEN 33 MG/DL (7-18); CALCIUM 8.6 MG/DL (8.5-10.1); CHLORIDE 96 MEQ/L (98-107); CREATININE 5.28 MG/DL (0.60-1.30); GLOMERULAR FILTRATION RATE 11 ML/MIN (>89); GLUCOSE,RANDOM 70 MG/DL (74-106); POTASSIUM 4.6 MEQ/L (3.5-5.1); SODIUM (NA) 136 MEQ/L (136-145); TOTAL BILIRUBIN ADULT 0.3 MG/DL (0.2-1.0); TOTAL PROTEIN 7.3 GM/DL (6.4-8.2)
[2017-06-10] MEDS: INSULIN ASPART SUPPLEMENTAL SCALE SQ ×4 (08:00→20:59)
[2017-06-10] MEDS: SEVELAMER CARBONATE 800 MG TAB PO ×3 (08:40→18:05)
[2017-06-10] MEDS: amLODIPine BESYLATE 5 MG TAB PO (08:41)
[2017-06-10] MEDS: FAMOTIDINE 20 MG TAB PO (08:41)
[2017-06-10] MEDS: FUROSEMIDE 40 MG TAB PO ×2 (08:41→20:56)
[2017-06-10] MEDS: ESCITALOPRAM OXALATE 10 MG TAB PO (08:41)
[2017-06-10] MEDS: LISINOPRIL 5 MG TAB PO ×2 (08:42→20:56)
[2017-06-10] MEDS: INSULIN DETEMIR 100 UNITS/ML VIAL SQ ×2 (08:43→20:57)
[2017-06-10] MEDS: SODIUM CHLORIDE 0.9% FLUSH 10 ML FLUSH IV FLUSH ×2 (08:44→21:00)
[2017-06-10] MEDS: MOMETASONE INH ×2 (08:45→21:00)
[2017-06-10] MEDS: COLLAGENASE OINT 30 GM TUBE TOPICAL ×2 (08:46→09:00)
[2017-06-10] MEDS: DOCUSATE SODIUM 50 MG/SENNA 8.6 MG TAB PO ×2 (09:00→20:57)
[2017-06-10] MEDS: METOPROLOL TARTRATE 25 MG TAB PO ×2 (10:05→20:57)
[2017-06-10] MEDS: ATORVASTATIN 40 MG TAB PO (20:57)
[2017-06-11] MEDS: PIPERACIL-TAZO 2.25 GM PREMIX 50 ML IV ×3 (04:15→21:00)
[2017-06-11] MEDS: INSULIN ASPART SUPPLEMENTAL SCALE SQ ×4 (07:43→20:51)
[2017-06-11] MEDS: SODIUM CHLORIDE 0.9% FLUSH 10 ML FLUSH IV FLUSH ×2 (07:43→21:00)
[2017-06-11 08:13] LABS: AUTOMATED NEUTROPHIL # 13.1 TH/MM3 (1.8-7.7); BASOPHIL # 0.1 TH/MM3 (0-0.2); BASOPHIL % 0.5 % (0.0-2.0); EOSINOPHIL # 0.2 TH/MM3 (0-0.4); HEMATOCRIT 33.9 % (39.0-51.0); HEMO FLAGS DIFF FINAL; HEMOGLOBIN 10.3 GM/DL (13.0-17.0); LYMPH % 9.4 % (9.0-44.0); LYMPHOCYTE # 1.6 TH/MM3 (1.0-4.8); MEAN CELL VOLUME 78.8 FL (80.0-100.0); MEAN CORPUSCULAR HEMOGLOBIN 23.9 PG (27.0-34.0); MEAN CORPUSCULAR HGB CONC 30.3 % (32.0-36.0); MEAN PLATELET VOLUME 8.9 FL (7.0-11.0); MONO % 11.4 % (0.0-8.0); MONOCYTE # 1.9 TH/MM3 (0-0.9); NEUT % 77.7 % (16.0-70.0); PLATELET COUNT 368 TH/MM3 (150-450); RED CELL DISTRIBUTION WIDTH 18.9 % (11.6-17.2); WHITE BLOOD COUNT 16.8 TH/MM3 (4.0-11.0)
[2017-06-11] MEDS: INSULIN DETEMIR 100 UNITS/ML VIAL SQ ×2 (08:15→20:51)
[2017-06-11 08:37] LABS: ALBUMIN 1.9 GM/DL (3.4-5.0); ANION GAP 11 MEQ/L (5-15); AST (GOT) 12 U/L (15-37); BICARBONATE 28.7 MEQ/L (21.0-32.0); BLOOD UREA NITROGEN 37 MG/DL (7-18); CALCIUM 8.5 MG/DL (8.5-10.1); CHLORIDE 95 MEQ/L (98-107); CREATININE 6.21 MG/DL (0.60-1.30); GLOMERULAR FILTRATION RATE 9 ML/MIN (>89); GLUCOSE,RANDOM 53 MG/DL (74-106); POTASSIUM 4.7 MEQ/L (3.5-5.1); SODIUM (NA) 135 MEQ/L (136-145)
[2017-06-11 08:38] LABS: ALT (GPT) 7 U/L (12-78)
[2017-06-11 08:39] LABS: ALKALINE PHOSPHATASE 444 U/L (45-117); TOTAL BILIRUBIN ADULT 0.4 MG/DL (0.2-1.0); TOTAL PROTEIN 6.9 GM/DL (6.4-8.2)
[2017-06-11] MEDS: COLLAGENASE OINT 30 GM TUBE TOPICAL (09:00)
[2017-06-11] MEDS: MOMETASONE INH ×2 (09:00→21:00)
[2017-06-11] MEDS: HEPARIN SODIUM - IV 10,000 UNITS/10 ML VIAL (11:35)
[2017-06-11] MEDS: GENTAMICIN SULFATE 20 MG/2 ML VIAL OTHER (11:35)
[2017-06-11] MEDS: EPOETIN ALFA 10,000 UNITS/ML VIAL IV PUSH (11:36)
[2017-06-11] MEDS: SEVELAMER CARBONATE 800 MG TAB PO ×3 (12:00→17:21)
[2017-06-11] MEDS: FAMOTIDINE 20 MG TAB PO (12:26)
[2017-06-11] MEDS: DOCUSATE SODIUM 50 MG/SENNA 8.6 MG TAB PO ×2 (12:26→20:50)
[2017-06-11] MEDS: amLODIPine BESYLATE 5 MG TAB PO (12:26)
[2017-06-11] MEDS: METOPROLOL TARTRATE 25 MG TAB PO ×2 (12:27→20:50)
[2017-06-11] MEDS: LISINOPRIL 5 MG TAB PO ×2 (12:27→20:49)
[2017-06-11] MEDS: DEXTROSE 10% INJ 500 ML IV (12:27)
[2017-06-11] MEDS: ESCITALOPRAM OXALATE 10 MG TAB PO (12:27)
[2017-06-11] MEDS: FUROSEMIDE 40 MG TAB PO ×2 (12:29→20:50)
[2017-06-11] MEDS: ATORVASTATIN 40 MG TAB PO (20:50)
[2017-06-12 00:26] LABS: C. DIFF EPI 027 PRESUMPTIVE POSITIVE (NEGATIVE)
[2017-06-12 00:30] LABS: C. DIFF TOXIN PCR POSITIVE (NEGATIVE)
[2017-06-12] MEDS: metroNIDAZOLE 500 MG INJ 100 ML IV ×4 (03:10→23:26)
[2017-06-12] MEDS: PIPERACIL-TAZO 2.25 GM PREMIX 50 ML IV ×3 (05:18→21:32)
[2017-06-12] MEDS: INSULIN ASPART SUPPLEMENTAL SCALE SQ ×4 (08:00→21:00)
[2017-06-12] MEDS: FUROSEMIDE 40 MG TAB PO ×2 (08:15→21:36)
[2017-06-12] MEDS: SEVELAMER CARBONATE 800 MG TAB PO ×3 (08:15→17:11)
[2017-06-12] MEDS: LISINOPRIL 5 MG TAB PO ×2 (08:15→21:36)
[2017-06-12] MEDS: amLODIPine BESYLATE 5 MG TAB PO (08:15)
[2017-06-12] MEDS: FAMOTIDINE 20 MG TAB PO (08:15)
[2017-06-12] MEDS: DOCUSATE SODIUM 50 MG/SENNA 8.6 MG TAB PO ×2 (08:15→21:00)
[2017-06-12] MEDS: ESCITALOPRAM OXALATE 10 MG TAB PO (08:15)
[2017-06-12] MEDS: METOPROLOL TARTRATE 25 MG TAB PO ×2 (08:15→21:37)
[2017-06-12] MEDS: MOMETASONE INH ×2 (08:16→21:00)
[2017-06-12] MEDS: SODIUM CHLORIDE 0.9% FLUSH 10 ML FLUSH IV FLUSH ×2 (08:16→21:00)
[2017-06-12] MEDS: COLLAGENASE OINT 30 GM TUBE TOPICAL (08:16)
[2017-06-12] MEDS: INSULIN DETEMIR 100 UNITS/ML VIAL SQ ×2 (08:16→21:37)
[2017-06-12] MEDS: DEXTROSE 10% INJ 500 ML IV (08:43)
[2017-06-12] MEDS: VANCOMYCIN 500 MG VIAL (FOR ORAL USE ONLY) PO ×3 (12:09→22:39)
[2017-06-12 12:12] LABS: AUTOMATED NEUTROPHIL # 10.4 TH/MM3 (1.8-7.7); BASOPHIL # 0.1 TH/MM3 (0-0.2); BASOPHIL % 0.6 % (0.0-2.0); EOSINOPHIL # 0.2 TH/MM3 (0-0.4); EOSINOPHIL % 1.5 % (0.0-4.0); HEMATOCRIT 32.6 % (39.0-51.0); HEMO FLAGS DIFF FINAL; HEMOGLOBIN 10.2 GM/DL (13.0-17.0); LYMPH % 10.6 % (9.0-44.0); LYMPHOCYTE # 1.5 TH/MM3 (1.0-4.8); MEAN CELL VOLUME 77.6 FL (80.0-100.0); MEAN CORPUSCULAR HEMOGLOBIN 24.1 PG (27.0-34.0); MEAN CORPUSCULAR HGB CONC 31.1 % (32.0-36.0); MEAN PLATELET VOLUME 8.2 FL (7.0-11.0); MONO % 12.1 % (0.0-8.0); MONOCYTE # 1.7 TH/MM3 (0-0.9); NEUT % 75.2 % (16.0-70.0); PLATELET COUNT 308 TH/MM3 (150-450); RED BLOOD COUNT 4.21 MIL/MM3 (4.50-5.90); RED CELL DISTRIBUTION WIDTH 18.9 % (11.6-17.2); WHITE BLOOD COUNT 13.8 TH/MM3 (4.0-11.0)
[2017-06-12 12:41] LABS: ANION GAP 9 MEQ/L (5-15); BICARBONATE 29.8 MEQ/L (21.0-32.0); BLOOD UREA NITROGEN 30 MG/DL (7-18); CALCIUM 8.1 MG/DL (8.5-10.1); CHLORIDE 97 MEQ/L (98-107); CREATININE 5.16 MG/DL (0.60-1.30); GLOMERULAR FILTRATION RATE 11 ML/MIN (>89); GLUCOSE,RANDOM 150 MG/DL (74-106); POTASSIUM 3.8 MEQ/L (3.5-5.1); SODIUM (NA) 136 MEQ/L (136-145)
[2017-06-12 14:32] LABS: PHOSPHORUS 3.3 MG/DL (2.5-4.9)
[2017-06-12] MEDS: ATORVASTATIN 40 MG TAB PO (21:35)
[2017-06-13] MEDS: PIPERACIL-TAZO 2.25 GM PREMIX 50 ML IV ×3 (05:55→22:12)
[2017-06-13] MEDS: VANCOMYCIN 500 MG VIAL (FOR ORAL USE ONLY) PO ×4 (05:55→22:19)
[2017-06-13] MEDS: metroNIDAZOLE 500 MG INJ 100 ML IV ×2 (08:00→17:03)
[2017-06-13] MEDS: SEVELAMER CARBONATE 800 MG TAB PO ×3 (08:00→17:03)
[2017-06-13] MEDS: INSULIN ASPART SUPPLEMENTAL SCALE SQ ×4 (08:00→21:00)
[2017-06-13 08:34] LABS: ALBUMIN 1.8 GM/DL (3.4-5.0); ALT (GPT) LESS THAN 6 U/L (12-78); ANION GAP 10 MEQ/L (5-15); AST (GOT) 6 U/L (15-37); BICARBONATE 26.9 MEQ/L (21.0-32.0); BLOOD UREA NITROGEN 37 MG/DL (7-18); CALCIUM 8.4 MG/DL (8.5-10.1); CHLORIDE 99 MEQ/L (98-107); CREATININE 5.67 MG/DL (0.60-1.30); GLOMERULAR FILTRATION RATE 10 ML/MIN (>89); GLUCOSE,RANDOM 100 MG/DL (74-106); MAGNESIUM 2.4 MG/DL (1.5-2.5); POTASSIUM 4.2 MEQ/L (3.5-5.1); SODIUM (NA) 136 MEQ/L (136-145)
[2017-06-13 08:37] LABS: ALKALINE PHOSPHATASE 402 U/L (45-117); TOTAL BILIRUBIN ADULT 0.3 MG/DL (0.2-1.0); TOTAL PROTEIN 6.6 GM/DL (6.4-8.2)
[2017-06-13] MEDS: INSULIN DETEMIR 100 UNITS/ML VIAL SQ ×2 (08:38→21:00)
[2017-06-13] MEDS: COLLAGENASE OINT 30 GM TUBE TOPICAL (09:00)
[2017-06-13] MEDS: SODIUM CHLORIDE 0.9% FLUSH 10 ML FLUSH IV FLUSH ×2 (09:00→22:12)
[2017-06-13] MEDS: DOCUSATE SODIUM 50 MG/SENNA 8.6 MG TAB PO ×2 (09:00→21:00)
[2017-06-13] MEDS: FAMOTIDINE 20 MG TAB PO (15:08)
[2017-06-13] MEDS: METOPROLOL TARTRATE 25 MG TAB PO ×2 (15:09→22:09)
[2017-06-13] MEDS: ESCITALOPRAM OXALATE 10 MG TAB PO (15:09)
[2017-06-13] MEDS: amLODIPine BESYLATE 5 MG TAB PO (15:09)
[2017-06-13] MEDS: FUROSEMIDE 40 MG TAB PO ×2 (15:09→22:10)
[2017-06-13] MEDS: LISINOPRIL 5 MG TAB PO ×2 (15:09→22:09)
[2017-06-13 16:28] LABS: AUTOMATED NEUTROPHIL # 11.1 TH/MM3 (1.8-7.7); BASOPHIL # 0.2 TH/MM3 (0-0.2); BASOPHIL % 1.1 % (0.0-2.0); EOSINOPHIL # 0.3 TH/MM3 (0-0.4); EOSINOPHIL % 1.8 % (0.0-4.0); HEMO FLAGS DIFF FINAL; HEMOGLOBIN 10.8 GM/DL (13.0-17.0); LYMPH % 8.5 % (9.0-44.0); LYMPHOCYTE # 1.2 TH/MM3 (1.0-4.8); MEAN CELL VOLUME 77.1 FL (80.0-100.0); MEAN CORPUSCULAR HEMOGLOBIN 24.4 PG (27.0-34.0); MEAN CORPUSCULAR HGB CONC 31.7 % (32.0-36.0); MEAN PLATELET VOLUME 8.5 FL (7.0-11.0); MONO % 10.5 % (0.0-8.0); MONOCYTE # 1.5 TH/MM3 (0-0.9); NEUT % 78.1 % (16.0-70.0); PLATELET COUNT 343 TH/MM3 (150-450); RED BLOOD COUNT 4.41 MIL/MM3 (4.50-5.90); RED CELL DISTRIBUTION WIDTH 18.5 % (11.6-17.2); WHITE BLOOD COUNT 14.2 TH/MM3 (4.0-11.0)
[2017-06-13] MEDS: MOMETASONE INH (21:00)
[2017-06-13] MEDS: ATORVASTATIN 40 MG TAB PO (22:10)
[2017-06-14] MEDS: VANCOMYCIN 500 MG VIAL (FOR ORAL USE ONLY) PO ×3 (05:00→17:05)
[2017-06-14] MEDS ORDERED: SODIUM CHLORID 0.9% 500 ML IV (05:45)
[2017-06-14] MEDS ORDERED: CHLORHEXIDINE GLUCONATE 2 % 1 PACK (2 CLOTHS) TOPICAL (05:45)
[2017-06-14] MEDS ORDERED: METOPROLOL TARTRATE 25 MG TAB PO (05:45)
[2017-06-14] MEDS ORDERED: LACTATED RINGER'S 1000 ML IV (05:45)
[2017-06-14] MEDS ORDERED: POVIDONE IODINE 5% (ANTISEPSIS KIT) 4 APPLICATIONS EACH NARE (05:45)
[2017-06-14] MEDS: PIPERACIL-TAZO 2.25 GM PREMIX 50 ML IV ×2 (05:50→12:43)
[2017-06-14] MEDS: SEVELAMER CARBONATE 800 MG TAB PO ×3 (08:00→17:05)
[2017-06-14] MEDS: metroNIDAZOLE 500 MG INJ 100 ML IV ×3 (08:00→17:05)
[2017-06-14 08:08] LABS: AUTOMATED NEUTROPHIL # 11.3 TH/MM3 (1.8-7.7); BASOPHIL # 0.1 TH/MM3 (0-0.2); BASOPHIL % 0.9 % (0.0-2.0); EOSINOPHIL # 0.2 TH/MM3 (0-0.4); EOSINOPHIL % 1.5 % (0.0-4.0); HEMO FLAGS DIFF FINAL; HEMOGLOBIN 10.1 GM/DL (13.0-17.0); LYMPHOCYTE # 1.7 TH/MM3 (1.0-4.8); MEAN CELL VOLUME 77.5 FL (80.0-100.0); MEAN CORPUSCULAR HEMOGLOBIN 23.9 PG (27.0-34.0); MEAN CORPUSCULAR HGB CONC 30.8 % (32.0-36.0); MEAN PLATELET VOLUME 8.3 FL (7.0-11.0); MONO % 10.9 % (0.0-8.0); MONOCYTE # 1.6 TH/MM3 (0-0.9); NEUT % 75.7 % (16.0-70.0); PLATELET COUNT 352 TH/MM3 (150-450); RED BLOOD COUNT 4.25 MIL/MM3 (4.50-5.90)
[2017-06-14] MEDS ORDERED: MIDAZOLAM HCL 2 MG/2 ML VIAL (08:35)
[2017-06-14] MEDS ORDERED: FAMOTIDINE 20 MG/2 ML VIAL (08:35)
[2017-06-14] MEDS ORDERED: ACETAMINOPHEN 1000 MG/100 ML 100 ML IV (08:35)
[2017-06-14 08:37] LABS: ANION GAP 9 MEQ/L (5-15); BICARBONATE 29.3 MEQ/L (21.0-32.0); BLOOD UREA NITROGEN 28 MG/DL (7-18); CALCIUM 8.3 MG/DL (8.5-10.1); CHLORIDE 99 MEQ/L (98-107); CREATININE 4.32 MG/DL (0.60-1.30); GLOMERULAR FILTRATION RATE 14 ML/MIN (>89); GLUCOSE,RANDOM 100 MG/DL (74-106); POTASSIUM 3.9 MEQ/L (3.5-5.1); SODIUM (NA) 137 MEQ/L (136-145)
[2017-06-14] MEDS: INSULIN DETEMIR 100 UNITS/ML VIAL SQ ×2 (09:00→20:37)
[2017-06-14] MEDS: COLLAGENASE OINT 30 GM TUBE TOPICAL (09:00)
[2017-06-14] MEDS: VANCOMYCIN HCL 1000 MG VIAL (09:16)
[2017-06-14] MEDS: SODIUM CHLOR 0.9% 250 ML INJ 250 ML (09:16)
[2017-06-14] MEDS ORDERED: SUGAMMADEX SODIUM 200 MG/2 ML VIAL IV PUSH (09:57)
[2017-06-14] MEDS: MORPHINE SULFATE 2 MG/ML INJ (10:12)
[2017-06-14] MEDS: INSULIN ASPART SUPPLEMENTAL SCALE SQ ×4 (10:12→20:37)
[2017-06-14] MEDS: *morphine SULFATE 4 MG/ML PERIprocedure ONLY (10:24)
[2017-06-14] MEDS: SODIUM CHLORIDE 0.9% FLUSH 10 ML FLUSH IV FLUSH ×2 (10:30→20:32)
[2017-06-14] MEDS: *morphine SULFATE 10 MG/ML PERIprocedure ONLY (10:34)
[2017-06-14] MEDS ORDERED: DO NOT ADM ANY ANTICOAGULANT DRUGS (11:00)
[2017-06-14] MEDS ORDERED: SENNOSIDES 8.6 MG TAB PO (12:00)
[2017-06-14] MEDS ORDERED: ONDANSETRON HCL 4 MG/2 ML VIAL IV PUSH (12:00)
[2017-06-14] MEDS: PROPOFOL 200 MG/20 ML AMP IV (12:00)
[2017-06-14] MEDS: PHENYLEPH/NS 1000 MCG/10 ML SYR IV (12:00)
[2017-06-14] MEDS ORDERED: MAGNESIUM HYDROXIDE SUSP 30 ML CUP PO (12:00)
[2017-06-14] MEDS: LIDOCAINE HCL 1% PF 5 ML SYRINGE OTHER (12:00)
[2017-06-14] MEDS ORDERED: BISACODYL 10 MG SUPP RECTAL (12:00)
[2017-06-14] MEDS: ROCURONIUM INJ 50 MG/5 ML SYRINGE IV PUSH (12:00)
[2017-06-14] MEDS ORDERED: LACTULOSE SYRUP 20 GM/30 ML CUP PO (12:00)
[2017-06-14] MEDS: MORPHINE SULFATE 2 MG/ML INJ IV PUSH ×3 (12:20→23:02)
[2017-06-14] MEDS: HYDROmorphone HCL 2 MG TAB PO ×2 (12:44→20:29)
[2017-06-14] MEDS: FUROSEMIDE 40 MG TAB PO ×2 (12:46→20:30)
[2017-06-14] MEDS: FAMOTIDINE 20 MG TAB PO (12:46)
[2017-06-14] MEDS: METOPROLOL TARTRATE 25 MG TAB PO ×2 (12:46→20:30)
[2017-06-14] MEDS: amLODIPine BESYLATE 5 MG TAB PO (12:46)
[2017-06-14] MEDS: LISINOPRIL 5 MG TAB PO ×2 (12:47→20:31)
[2017-06-14] MEDS: ESCITALOPRAM OXALATE 10 MG TAB PO (12:47)
[2017-06-14] MEDS: ATORVASTATIN 40 MG TAB PO (20:29)
[2017-06-14] MEDS: DOCUSATE SODIUM 50 MG/SENNA 8.6 MG TAB PO (20:32)
[2017-06-14] MEDS: MOMETASONE INH (21:00)
[2017-06-15] MEDS: VANCOMYCIN 500 MG VIAL (FOR ORAL USE ONLY) PO ×5 (00:03→23:31)
[2017-06-15] MEDS: metroNIDAZOLE 500 MG INJ 100 ML IV ×4 (00:03→23:31)
[2017-06-15] MEDS: MORPHINE SULFATE 2 MG/ML INJ IV PUSH ×2 (00:04→05:59)
[2017-06-15] MEDS: HYDROmorphone HCL 2 MG TAB PO ×3 (01:12→13:56)
[2017-06-15] MEDS: diphenhydrAMINE HCL 25 MG CAP PO (01:55)
[2017-06-15] MEDS: INSULIN ASPART SUPPLEMENTAL SCALE SQ ×4 (08:00→20:12)
[2017-06-15] MEDS: SEVELAMER CARBONATE 800 MG TAB PO ×3 (08:00→16:53)
[2017-06-15] MEDS: COLLAGENASE OINT 30 GM TUBE TOPICAL (09:00)
[2017-06-15] MEDS: MOMETASONE INH ×2 (09:00→20:11)
[2017-06-15] MEDS: LISINOPRIL 5 MG TAB PO ×2 (09:00→20:09)
[2017-06-15] MEDS: DEXTROSE 50% IN WATER 50 ML VIAL(D50) IV PUSH (09:06)
[2017-06-15] MEDS: INSULIN DETEMIR 100 UNITS/ML VIAL SQ ×2 (09:06→20:12)
[2017-06-15] MEDS: GENTAMICIN SULFATE 20 MG/2 ML VIAL OTHER (12:20)
[2017-06-15] MEDS: EPOETIN ALFA 10,000 UNITS/ML VIAL IV PUSH (12:20)
[2017-06-15] MEDS: HEPARIN SODIUM - IV 10,000 UNITS/10 ML VIAL (12:20)
[2017-06-15] MEDS: SODIUM CHLOR 0.9% 1000 ML INJ 1,000 ML OTHER (12:20)
[2017-06-15] MEDS: amLODIPine BESYLATE 5 MG TAB PO (13:57)
[2017-06-15] MEDS: DOCUSATE SODIUM 50 MG/SENNA 8.6 MG TAB PO ×2 (13:57→20:10)
[2017-06-15] MEDS: SODIUM CHLORIDE 0.9% FLUSH 10 ML FLUSH IV FLUSH ×2 (13:57→20:11)
[2017-06-15] MEDS: FUROSEMIDE 40 MG TAB PO ×2 (13:57→20:09)
[2017-06-15] MEDS: FAMOTIDINE 20 MG TAB PO (13:57)
[2017-06-15] MEDS: METOPROLOL TARTRATE 25 MG TAB PO ×2 (13:57→20:10)
[2017-06-15] MEDS: ESCITALOPRAM OXALATE 10 MG TAB PO (13:57)
[2017-06-15] MEDS: ACETAMINOPHEN 325 MG TAB PO (16:44)
[2017-06-15] MEDS: ATORVASTATIN 40 MG TAB PO (20:08)
[2017-06-16] MEDS: HYDROmorphone HCL 2 MG TAB PO ×2 (04:15→14:00)
[2017-06-16] MEDS: VANCOMYCIN 500 MG VIAL (FOR ORAL USE ONLY) PO ×3 (04:15→18:00)
[2017-06-16] MEDS: INSULIN DETEMIR 100 UNITS/ML VIAL SQ (06:28)
[2017-06-16] MEDS: INSULIN ASPART SUPPLEMENTAL SCALE SQ ×4 (08:00→20:54)
[2017-06-16] MEDS: metroNIDAZOLE 500 MG INJ 100 ML IV ×2 (08:10→14:55)
[2017-06-16] MEDS: SEVELAMER CARBONATE 800 MG TAB PO ×3 (08:10→18:00)
[2017-06-16] MEDS: LISINOPRIL 5 MG TAB PO ×2 (08:11→20:53)
[2017-06-16] MEDS: FAMOTIDINE 20 MG TAB PO (08:11)
[2017-06-16] MEDS: amLODIPine BESYLATE 5 MG TAB PO (08:11)
[2017-06-16] MEDS: FUROSEMIDE 40 MG TAB PO ×2 (08:11→20:53)
[2017-06-16] MEDS: METOPROLOL TARTRATE 25 MG TAB PO ×2 (08:11→20:53)
[2017-06-16] MEDS: DOCUSATE SODIUM 50 MG/SENNA 8.6 MG TAB PO ×2 (08:11→20:53)
[2017-06-16] MEDS: ESCITALOPRAM OXALATE 10 MG TAB PO (08:11)
[2017-06-16] MEDS: COLLAGENASE OINT 30 GM TUBE TOPICAL (08:13)
[2017-06-16] MEDS: SODIUM CHLORIDE 0.9% FLUSH 10 ML FLUSH IV FLUSH ×2 (08:25→20:54)
[2017-06-16] MEDS: MOMETASONE INH ×2 (08:25→21:00)
[2017-06-16] MEDS: PROPOFOL 200 MG/20 ML AMP IV (12:14)
[2017-06-16] MEDS: ceFAZolin 2 GM PREMIX 0 ML (12:15)
[2017-06-16] MEDS: HEPARIN SODIUM - IV 10,000 UNITS/10 ML VIAL (12:15)
[2017-06-16] MEDS: MIDAZOLAM HCL 2 MG/2 ML VIAL (12:15)
[2017-06-16] MEDS: PROTAMINE SULFATE 50 MG/5 ML VIAL (12:15)
[2017-06-16] MEDS: LIDOCAINE HCL 1% PF 5 ML SYRINGE OTHER (12:16)
[2017-06-16] MEDS: ATORVASTATIN 40 MG TAB PO (20:53)
[2017-06-17] MEDS: VANCOMYCIN 500 MG VIAL (FOR ORAL USE ONLY) PO ×5 (00:36→23:00)
[2017-06-17] MEDS: metroNIDAZOLE 500 MG INJ 100 ML IV ×2 (00:36→09:36)
[2017-06-17] MEDS ORDERED: SODIUM CHLORID 0.9% 500 ML IV (06:45)
[2017-06-17] MEDS ORDERED: CHLORHEXIDINE GLUCONATE 2 % 1 PACK (2 CLOTHS) TOPICAL (06:45)
[2017-06-17] MEDS ORDERED: LACTATED RINGER'S 1000 ML IV (06:45)
[2017-06-17] MEDS ORDERED: METOPROLOL TARTRATE 25 MG TAB PO (06:45)
[2017-06-17] MEDS ORDERED: POVIDONE IODINE 5% (ANTISEPSIS KIT) 4 APPLICATIONS EACH NARE (06:45)
[2017-06-17] MEDS ORDERED: INSULIN DETEMIR 100 UNITS/ML VIAL SQ (07:00)
[2017-06-17] MEDS: INSULIN ASPART SUPPLEMENTAL SCALE SQ ×4 (08:00→20:38)
[2017-06-17] MEDS: SEVELAMER CARBONATE 800 MG TAB PO ×3 (08:00→20:30)
[2017-06-17] MEDS: DOCUSATE SODIUM 50 MG/SENNA 8.6 MG TAB PO ×2 (09:00→20:33)
[2017-06-17] MEDS: MOMETASONE INH ×2 (09:00→20:31)
[2017-06-17] MEDS: ESCITALOPRAM OXALATE 10 MG TAB PO (09:36)
[2017-06-17] MEDS: PANTOPRAZOLE SOD 20 MG DELAYED RELEASE TAB PO (09:36)
[2017-06-17] MEDS: SODIUM CHLORIDE 0.9% FLUSH 10 ML FLUSH IV FLUSH ×2 (09:37→20:31)
[2017-06-17] MEDS: METOPROLOL TARTRATE 25 MG TAB PO ×2 (09:37→20:30)
[2017-06-17] MEDS: FUROSEMIDE 40 MG TAB PO ×2 (09:37→20:30)
[2017-06-17] MEDS: amLODIPine BESYLATE 5 MG TAB PO (09:37)
[2017-06-17] MEDS: LISINOPRIL 5 MG TAB PO ×2 (09:38→20:30)
[2017-06-17] MEDS: COLLAGENASE OINT 30 GM TUBE TOPICAL (10:21)
[2017-06-17 12:32] LABS: AUTOMATED NEUTROPHIL # 11.1 TH/MM3 (1.8-7.7); BASOPHIL # 0.1 TH/MM3 (0-0.2); BASOPHIL % 0.6 % (0.0-2.0); EOSINOPHIL # 0.2 TH/MM3 (0-0.4); EOSINOPHIL % 1.7 % (0.0-4.0); HEMATOCRIT 31.4 % (39.0-51.0); HEMO FLAGS DIFF FINAL; HEMOGLOBIN 9.7 GM/DL (13.0-17.0); LYMPH % 9.5 % (9.0-44.0); LYMPHOCYTE # 1.3 TH/MM3 (1.0-4.8); MEAN CELL VOLUME 77.4 FL (80.0-100.0); MEAN CORPUSCULAR HEMOGLOBIN 23.8 PG (27.0-34.0); MEAN CORPUSCULAR HGB CONC 30.8 % (32.0-36.0); MEAN PLATELET VOLUME 8.3 FL (7.0-11.0); MONO % 8.7 % (0.0-8.0); MONOCYTE # 1.2 TH/MM3 (0-0.9); NEUT % 79.5 % (16.0-70.0); PLATELET COUNT 321 TH/MM3 (150-450); RED BLOOD COUNT 4.06 MIL/MM3 (4.50-5.90); RED CELL DISTRIBUTION WIDTH 18.6 % (11.6-17.2)
[2017-06-17] MEDS: HEPARIN-NS/PF INJ 1,000 ML (15:40)
[2017-06-17] MEDS: NITROGLYCERIN INJ 5 ML (15:44)
[2017-06-17] MEDS: MIDAZOLAM HCL 5 MG/5 ML VIAL (15:53)
[2017-06-17] MEDS: HEPARIN SODIUM - IV 10,000 UNITS/10 ML VIAL (16:00)
[2017-06-17] MEDS: IOHEXOL 350 MG/ML 50 ML BTL (for Cath Lab) OTHER (17:18)
[2017-06-17] MEDS: ATORVASTATIN 40 MG TAB PO (20:33)
[2017-06-18] MEDS: VANCOMYCIN 500 MG VIAL (FOR ORAL USE ONLY) PO ×4 (05:00→23:03)
[2017-06-18] MEDS: INSULIN ASPART SUPPLEMENTAL SCALE SQ ×4 (08:00→20:41)
[2017-06-18] MEDS: SEVELAMER CARBONATE 800 MG TAB PO ×3 (08:00→17:00)
[2017-06-18] MEDS: MOMETASONE INH ×2 (09:00→20:39)
[2017-06-18] MEDS: GENTAMICIN SULFATE 20 MG/2 ML VIAL OTHER (11:45)
[2017-06-18] MEDS: HEPARIN SODIUM - IV 10,000 UNITS/10 ML VIAL (11:45)
[2017-06-18] MEDS: EPOETIN ALFA 10,000 UNITS/ML VIAL IV PUSH (11:46)
[2017-06-18] MEDS: ESCITALOPRAM OXALATE 10 MG TAB PO (13:01)
[2017-06-18] MEDS: SODIUM CHLORIDE 0.9% FLUSH 10 ML FLUSH IV FLUSH ×2 (13:02→20:39)
[2017-06-18] MEDS: DOCUSATE SODIUM 50 MG/SENNA 8.6 MG TAB PO ×2 (13:02→20:40)
[2017-06-18] MEDS: LISINOPRIL 5 MG TAB PO ×2 (13:02→20:38)
[2017-06-18] MEDS: amLODIPine BESYLATE 5 MG TAB PO (13:02)
[2017-06-18] MEDS: FUROSEMIDE 40 MG TAB PO ×2 (13:02→20:38)
[2017-06-18] MEDS: PANTOPRAZOLE SOD 20 MG DELAYED RELEASE TAB PO (13:03)
[2017-06-18] MEDS: COLLAGENASE OINT 30 GM TUBE TOPICAL (13:03)
[2017-06-18] MEDS: METOPROLOL TARTRATE 25 MG TAB PO ×2 (13:03→20:40)
[2017-06-18] MEDS: ATORVASTATIN 40 MG TAB PO (20:39)
[2017-06-19] MEDS: VANCOMYCIN 500 MG VIAL (FOR ORAL USE ONLY) PO ×4 (05:51→23:09)
[2017-06-19] MEDS: INSULIN ASPART SUPPLEMENTAL SCALE SQ ×4 (08:00→21:00)
[2017-06-19] MEDS: MOMETASONE INH ×2 (08:26→20:56)
[2017-06-19] MEDS: SEVELAMER CARBONATE 800 MG TAB PO ×3 (08:26→17:03)
[2017-06-19] MEDS: PANTOPRAZOLE SOD 20 MG DELAYED RELEASE TAB PO (08:27)
[2017-06-19] MEDS: METOPROLOL TARTRATE 25 MG TAB PO ×2 (08:27→20:55)
[2017-06-19] MEDS: LISINOPRIL 5 MG TAB PO ×2 (08:27→21:01)
[2017-06-19] MEDS: FUROSEMIDE 40 MG TAB PO ×2 (08:27→21:00)
[2017-06-19] MEDS: ESCITALOPRAM OXALATE 10 MG TAB PO (08:27)
[2017-06-19] MEDS: amLODIPine BESYLATE 5 MG TAB PO (08:28)
[2017-06-19] MEDS: DOCUSATE SODIUM 50 MG/SENNA 8.6 MG TAB PO ×2 (08:28→20:56)
[2017-06-19] MEDS: COLLAGENASE OINT 30 GM TUBE TOPICAL (08:28)
[2017-06-19] MEDS: SODIUM CHLORIDE 0.9% FLUSH 10 ML FLUSH IV FLUSH ×2 (08:29→20:56)
[2017-06-19] MEDS: ATORVASTATIN 40 MG TAB PO (20:55)
[2017-06-20] MEDS: VANCOMYCIN 500 MG VIAL (FOR ORAL USE ONLY) PO ×3 (05:33→18:35)
[2017-06-20 07:31] LABS: ALBUMIN 1.9 GM/DL (3.4-5.0); ANION GAP 8 MEQ/L (5-15); BICARBONATE 32.1 MEQ/L (21.0-32.0); BLOOD UREA NITROGEN 35 MG/DL (7-18); CALCIUM 8.3 MG/DL (8.5-10.1); CHLORIDE 97 MEQ/L (98-107); CREATININE 5.47 MG/DL (0.60-1.30); GLOMERULAR FILTRATION RATE 10 ML/MIN (>89); GLUCOSE,RANDOM 117 MG/DL (74-106); PHOSPHORUS 4.2 MG/DL (2.5-4.9); POTASSIUM 3.5 MEQ/L (3.5-5.1); SODIUM (NA) 137 MEQ/L (136-145)
[2017-06-20] MEDS: INSULIN ASPART SUPPLEMENTAL SCALE SQ ×3 (08:00→18:38)
[2017-06-20] MEDS: MOMETASONE INH (09:00)
[2017-06-20] MEDS: LISINOPRIL 5 MG TAB PO (09:00)
[2017-06-20] MEDS: DOCUSATE SODIUM 50 MG/SENNA 8.6 MG TAB PO (09:00)
[2017-06-20] MEDS: METOPROLOL TARTRATE 25 MG TAB PO (09:00)
[2017-06-20] MEDS: SODIUM CHLORIDE 0.9% FLUSH 10 ML FLUSH IV FLUSH (09:54)
[2017-06-20] MEDS: FUROSEMIDE 40 MG TAB PO (09:55)
[2017-06-20] MEDS: PANTOPRAZOLE SOD 20 MG DELAYED RELEASE TAB PO (09:57)
[2017-06-20] MEDS: COLLAGENASE OINT 30 GM TUBE TOPICAL (09:58)
[2017-06-20] MEDS: ESCITALOPRAM OXALATE 10 MG TAB PO (09:59)
[2017-06-20] MEDS: SEVELAMER CARBONATE 800 MG TAB PO ×3 (10:06→18:41)
[2017-06-20] MEDS: RESP: ALBUTEROL 2.5 MG/IPRATROPIUM 0.5 MG NEB (SCH) NEB ×2 (16:00→19:55)
[2017-06-20] MEDS: HEPARIN SODIUM - IV 10,000 UNITS/10 ML VIAL (17:36)
[2017-06-20] MEDS: EPOETIN ALFA 10,000 UNITS/ML VIAL IV PUSH (17:37)
[2017-06-20] MEDS: GENTAMICIN SULFATE 20 MG/2 ML VIAL OTHER (17:37)
[2017-06-20] MEDS: amLODIPine BESYLATE 5 MG TAB PO (18:34)
== END 2017-06-20 20:26 | disposition home health service (06) | DRG 270 ==
LOC: NEPE 22:28 → NEDA 05-31 02:45 → N03A 05-31 06:12 → N04A 05-31 20:09
PROC: 0Y6C0Z3 Detachment at Right Upper Leg, Low, Open Approach (ICD-10-PCS; principal; 2017-06-03 09:47)
PROC: 04CL3ZZ Extirpation of Matter from Left Femoral Artery, Percutaneous Approach (ICD-10-PCS; 2017-06-03 09:47)
PROC: 047K34Z Dilation of Right Femoral Artery with Drug-eluting Intraluminal Device, Percutaneous Approach (ICD-10-PCS; 2017-06-03 09:47)
PROC: 047M3ZZ Dilation of Right Popliteal Artery, Percutaneous Approach (ICD-10-PCS; 2017-06-03 09:47)
PROC: 047R3ZZ Dilation of Right Posterior Tibial Artery, Percutaneous Approach (ICD-10-PCS; 2017-06-03 09:47)
PROC: 047L3ZZ Dilation of Left Femoral Artery, Percutaneous Approach (ICD-10-PCS; 2017-06-03 09:47)
PROC: 047S3ZZ Dilation of Left Posterior Tibial Artery, Percutaneous Approach (ICD-10-PCS; 2017-06-03 09:47)
PROC: B41G1ZZ Fluoroscopy of Left Lower Extremity Arteries using Low Osmolar Contrast (ICD-10-PCS; 2017-06-03 09:47)
PROC: B4101ZZ Fluoroscopy of Abdominal Aorta using Low Osmolar Contrast (ICD-10-PCS; 2017-06-03 09:47)
PROC: B41F1ZZ Fluoroscopy of Right Lower Extremity Arteries using Low Osmolar Contrast (ICD-10-PCS; 2017-06-03 09:47)
PROC: 5A1D70Z Performance of Urinary Filtration, Intermittent, Less than 6 Hours Per Day (ICD-10-PCS; 2017-06-03 09:47)
DX: E11.52 Type 2 diabetes mellitus with diabetic peripheral angiopathy with gangrene (principal); N18.6 End stage renal disease; I13.2 Hypertensive heart and chronic kidney disease with heart failure and with stage 5 chronic kidney disease, or end stage renal disease; E88.89 Other specified metabolic disorders; A04.72 Enterocolitis due to Clostridium difficile, not specified as recurrent; E11.22 Type 2 diabetes mellitus with diabetic chronic kidney disease; I42.9 Cardiomyopathy, unspecified; M86.9 Osteomyelitis, unspecified; L97.419 Non-pressure chronic ulcer of right heel and midfoot with unspecified severity; E11.621 Type 2 diabetes mellitus with foot ulcer; L97.513 Non-pressure chronic ulcer of other part of right foot with necrosis of muscle; I70.201 Unspecified atherosclerosis of native arteries of extremities, right leg; I50.9 Heart failure, unspecified; E87.5 Hyperkalemia; I25.10 Atherosclerotic heart disease of native coronary artery without angina pectoris; Z95.1 Presence of aortocoronary bypass graft; Z99.2 Dependence on renal dialysis; Z87.891 Personal history of nicotine dependence; M06.9 Rheumatoid arthritis, unspecified; I48.91 Unspecified atrial fibrillation; I87.8 Other specified disorders of veins; I87.2 Venous insufficiency (chronic) (peripheral); L97.521 Non-pressure chronic ulcer of other part of left foot limited to breakdown of skin; E11.649 Type 2 diabetes mellitus with hypoglycemia without coma; E11.69 Type 2 diabetes mellitus with other specified complication; D63.1 Anemia in chronic kidney disease; G89.29 Other chronic pain; Z79.4 Long term (current) use of insulin
CPT/HCPCS: 37225; 37228; 73718; 75710; 80048; 80053; 80069; 82947; 82948; 83036; 83735; 84100; 84132; 85007; 85025; 85027; 87040; 87070; 87077; 87186; 87205; 87493; 88307; 88311; 90935; 93005; 93306; 94640; 94664; 96365; 96374; 96375; 97110-GP; 97162-GP; 97530-GP; 99152; 99153; 99285-25

== ENCOUNTER → 2017-08-01 | Day surgery (SDC) | payer OTHER ==
[~2017-08-01] VITALS: Ht 170.2 cm; Wt 76.9 kg
[~2017-08-01] MED LIST changes: +ACET325C PO; -ACETAMINOPHEN 325 MG TAB PO PRN; -ALBUMIN 25% INJ 100 ML IV PRN; +AMLO10TA2 PO; -ASMA220A INH; -BETA10SO TOPICAL; +BUME1TAB PO; +BUPIVACAINE HCL PF 0.5% 10 ML VIAL ONE; -BUPIVACAINE HCL PF 0.5% 30 ML VIAL ONE; +DO NOT ADM ANY ANTICOAGULANT DRUGS PRN; -GELATIN 12 MM/7 MM FOAM TOP PRN; -GENTAMICIN SULFATE (DIALYSIS USE ONLY) 20 MG/2 ML VIAL OTHER PRN; -HEPARIN SODIUM - IV 10,000 UNITS/10 ML VIAL IV FLUSH PRN; -HEPARIN SODIUM - IV 10,000 UNITS/10 ML VIAL PRN; -HEPARIN-NS/PF INJ 0 ML ONE; +HEPARIN-NS/PF INJ 500 ML ONE; -INSU1INJ5 SQ; -INSULIN HUMAN REGULAR 1,000 UNITS/10 ML VIAL SQ PRN; +LABE300T PO; -LACTATED RINGER'S 1000 ML IV PRN; +LEXA10TA PO; +LIDOCAINE HCL 1% PF 5 ML SYRINGE OTHER ONE; -MANNITOL 12.5 GM/50 ML VIAL IV PRN; -NITROGLYCERIN 0.4 MG SL 25 TABS/BTL SL PRN; -ONDANSETRON HCL 4 MG/2 ML VIAL IV PUSH PRN; +OXYGENDME NAS.CANULA; +OXYGENTANK NAS.CANULA; +PHENYLEPH/NS 1000 MCG/10 ML SYR IV ONE; -POTA-163 PO; -POVIDONE IODINE 5% (ANTISEPSIS KIT) 4 APPLICATIONS EACH NARE PRN; +PROPOFOL 200 MG/20 ML AMP IV ONE; -RESP: ALBUTEROL 2.5 MG/IPRATROPIUM 0.5 MG NEB (PRN) ONE; +ROSU1TAB10 PO; -SODIUM CHLOR 0.9% 1000 ML INJ 1,000 ML IV PRN; -SODIUM CHLOR 0.9% 1000 ML INJ 1,000 ML OTHER PRN; +SODIUM CHLOR 0.9% 250 ML INJ 250 ML IV ONE; -SODIUM CHLORIDE 0.9% FLUSH 10 ML FLUSH IV FLUSH PRN; +THROMBIN (TOPICAL) 20,000 UNIT SPRAY KIT ONE; +VANCOMYCIN HCL 1000 MG VIAL ONE; -VITA250C3 CHEW; -ceFAZolin 2 GM PREMIX 0 ML ONE; -cloNIDine HCL 0.1 MG TAB PO PRN; -diphenhydrAMINE HCL 25 MG CAP PO PRN; +ePHEDrine/NS 25 MG/5 ML SYRINGE IV ONE
[2017-08-01] MEDS: LACTATED RINGER'S 1000 ML IV PRN ×2 (09:55→10:12)
[2017-08-01] MEDS: POVIDONE IODINE 5% (ANTISEPSIS KIT) 4 APPLICATIONS EACH NARE PRN ×2 (10:00→10:29)
[2017-08-01 11:01] LABS: AUTOMATED NEUTROPHIL # 6.8 TH/MM3 (1.8-7.7); BASOPHIL # 0.1 TH/MM3 (0-0.2); BASOPHIL % 1.4 % (0.0-2.0); EOSINOPHIL # 0.4 TH/MM3 (0-0.4); EOSINOPHIL % 3.7 % (0.0-4.0); HEMATOCRIT 36.3 % (39.0-51.0); LYMPH % 18.5 % (9.0-44.0); LYMPHOCYTE # 1.8 TH/MM3 (1.0-4.8); MEAN CELL VOLUME 77.3 FL (80.0-100.0); MEAN CORPUSCULAR HEMOGLOBIN 25.5 PG (27.0-34.0); MEAN PLATELET VOLUME 8.3 FL (7.0-11.0); MONO % 7.1 % (0.0-8.0); MONOCYTE # 0.7 TH/MM3 (0-0.9); NEUT % 69.3 % (16.0-70.0); PLATELET COUNT 371 TH/MM3 (150-450); RED CELL DISTRIBUTION WIDTH 20.6 % (11.6-17.2); WHITE BLOOD COUNT 9.8 TH/MM3 (4.0-11.0)
[2017-08-01 11:08] LABS: PROTHROMBIN TIME - PATIENT 10.6 SEC (9.8-11.6)
[2017-08-01 11:22] LABS: BICARBONATE 23.1 MEQ/L (21.0-32.0); CALCIUM 9.5 MG/DL (8.5-10.1); CREATININE 4.31 MG/DL (0.60-1.30)
--- NOTE | 2017-08-01 11:51 | HHI.HP ---
History of Present Illness Chief Complaint: ESRD, need for HD access History of Present Illness 67 yo male with ESRD currently on HD. Needs HD access. Past/Family/Social History Past Medical History ESRD HTN PAD CAD XOL Past Surgical History R OMAR BALDERAS endovascular revascularization Social History nonsmoker Family History [place] Home Medications Active Scripts Oxygen (O2) (Oxygen (O2)) Device, LITER ELIZABETH.CANULA CONTINUOUS for Prevent Hypoxemia, #2 Oxygen Concentrator Portable Gaseous 2 L/min via Nasal Canula Continuous For 99 months Prov:Toribio Cespedes MD 06/19/17 Reported Medications Labetalol (Labetalol) 300 Mg Tab, 600 MG PO TID for Blood Pressure Management, TAB 0 Refills 08/01/17 Rosuvastatin (Rosuvastatin) 40 Mg Tab, 40 MG PO DAILY for Cholesterol Management , #30 TAB 0 Refills 08/01/17 Bumetanide (Bumetanide) 1 Mg Tab, 2 MG PO DAILY, #30 TAB 0 Refills 08/01/17 Amlodipine (Amlodipine) 10 Mg Tab, 10 MG PO DAILY for Blood Pressure Management , #30 TAB 0 Refills 08/01/17 Oxygen tank (Oxygen tank) 1 Ea Tank, LITER ELIZABETH.CANULA CONTINUOUS for HYPOXEMIA PREVENTION, #2 Oxygen Concentrator Portable Gaseous 2 L/min via Nasal Cannula Continuous For 99 months 06/18/17 Acetaminophen (Acetaminophen) 325 Mg Capsule, 650 CAP PO Q4HR for Pain Management 05/30/17 Discontinued Reported Medications Escitalopram (Lexapro) 10 Mg Tab, 10 MG PO DAILY, #30 TAB 0 Refills 05/30/17 Metoprolol Tartrate (Metoprolol Tartrate) 25 Mg Tab, 25 MG PO BID, #60 TAB 0 Refills 05/13/17 Metoclopramide (Metoclopramide) 5 Mg Tab, 5 MG PO Y for NAUSEA, TAB 0 Refills 05/13/17 Lisinopril (Lisinopril) 2.5 Mg Tab, 2.5 MG PO BID, #30 TAB 0 Refills 05/13/17 Furosemide (Lasix) 40 Mg Tab, 40 MG PO BID, #60 TAB 0 Refills TAKE ONE PILL TWICE A DAY EVERY SAT, SAT, SAT, AND SATURDAY FOR CHF 05/13/17 Hydralazine HCl (Hydralazine HCl) 25 Mg Tablet, 25 MG PO QID Y for SBP> OR = 180 , DBP> OR = 100, #120 TAB 0 Refills 05/13/17 Insulin Lispro (Human) Inj (Humalog Kwikpen Pen Inj) 300 Unit/3 Ml Pen, 1 UNITS SQ for Blood Sugar Management, PEN 0 Refills SLIDING SCALE PER PROTOCOL 05/13/17 Famotidine (Famotidine) 20 Mg Tab, 20 MG PO DAILY, #60 TAB 0 Refills 05/13/17 Ipratropium-Albuterol Neb (Duoneb) 0.5-2.5 Mg/3 Ml Neb, 1 NEBULE INH BID for Breathing Treatment, #30 NEBULE 0 Refills 05/13/17 Atorvastatin (Atorvastatin) 40 Mg Tab, 40 MG PO HS for Cholesterol Management, # 30 TAB 0 Refills 05/13/17 Apixaban (Eliquis) 2.5 Mg Tab, 2.5 MG PO BID for Blood Clot Prevention, TAB 0 Refills 05/13/17 Amlodipine (Amlodipine) 5 Mg Tab, 5 MG PO DAILY for Blood Pressure Management, # 30 TAB 0 Refills 05/13/17 Multiple Vitamins W/ Minerals (One Daily-Minerals) 1 Tab, 1 TAB PO DAILY for Nutritional Supplement, #100 TAB 0 Refills 05/30/17 Mometasone 120 Act Inh (Asmanex 120 Act Twisthaler) 220 Mcg/Act Inh, 1 PUFF INH BID for Asthma Management, #1 INHALER 0 Refills 05/13/17 Discontinued Scripts Collagenase (Santyl) 250 Unit/Gram Oin, 1 APPLIC TOPICAL DAILY for wound, #1 TUBE 0 Refills follow recommendations by wound care provided Prov:Toribio Cespedes MD 06/20/17 Coded Allergies: No Known Allergies (Unverified , 08/01/17) Review of Systems Constitutional: DENIES: Diaphoretic episodes, Fatigue, Fever, Weight gain, Weight loss, Chills, Dizziness, Change in appetite, Night Sweats Physical Exam Vitals/I&O Date Time Temp Pulse Resp B/P (MAP) Pulse Ox O2 Delivery O2 Flow Rate FiO2 08/01/17 10:26 97.8 65 20 185/70 (108) 100 Neuro: alert, oriented, pleasant, no distress HEENT: NC/AT; anicteric sclera Neck: no JVD Heart: reg rate, no M Lungs: clear B Abdomen: NT Vascular: L UE without rashes; palpable pulse Laboratory Tests Test 08/01/17 09:45 White Blood Count 9.8 Red Blood Count 4.70 Hemoglobin 12.0 Hematocrit 36.3 Mean Corpuscular Volume 77.3 Mean Corpuscular Hemoglobin 25.5 Mean Corpuscular Hemoglobin Concent 33.0 Red Cell Distribution Width 20.6 Platelet Count 371 Mean Platelet Volume 8.3 Neutrophils (%) (Auto) 69.3 Lymphocytes (%) (Auto) 18.5 Monocytes (%) (Auto) 7.1 Eosinophils (%) (Auto) 3.7 Basophils (%) (Auto) 1.4 Neutrophils # (Auto) 6.8 Lymphocytes # (Auto) 1.8 Monocytes # (Auto) 0.7 Eosinophils # (Auto) 0.4 Basophils # (Auto) 0.1 CBC Comment DIFF FINAL Differential Comment Prothrombin Time 10.6 Prothromb Time International Ratio 1.0 Blood Urea Nitrogen 52 Creatinine 4.31 Random Glucose 98 Calcium Level 9.5 Sodium Level 137 Potassium Level 4.2 Chloride Level 101 Carbon Dioxide Level 23.1 Anion Gap 13 Estimat Glomerular Filtration Rate 14 Caprini VTE Risk Assessment Caprini VTE Risk Assessment: No/Low Risk (score <= 1) Caprini Risk Assessment Model Point Value = 1 Point Value = 2 Point Value = 3 Point Value = 5 Age 41-60 Minor surgery BMI > 25 kg/m2 Swollen legs Varicose veins or History of unexplained or recurrent spontaneous Oral contraceptives or hormone replacement Sepsis (< 1 month) Serious lung disease, including pneumonia (< 1 month) Abnormal pulmonary function Acute myocardial infarction Congestive heart failure (< 1 month) History of inflammatory bowel disease Medical patient at bed rest Age 61-74 Arthroscopic surgery Major open surgery (> 45 min) Laparoscopic surgery (> 45 min) Malignancy Confined to bed (> 72 hours) Immobilizing plaster cast Central venous access Age >= 75 History of VTE Family history of VTE Factor V Leiden Prothrombin [id number] Lupus anticoagulant Anticardiolipin antibodies Elevated serum homocysteine Heparin-induced thrombocytopenia Other congenital or acquired thrombophilia Stroke (< 1 month) Elective arthroplasty Hip, pelvis, or leg fracture Acute spinal cord injury (< 1 month) Prophylaxis Regimen Total Risk Factor Score Risk Level Prophylaxis Regimen 0-1 Low Early ambulation 2 Moderate Order ONE of the following: *Sequential Compression Device (SCD) *Heparin 5000 units SQ BID 3-4 Higher Order ONE of the following medications: *Heparin 5000 units SQ TID *Enoxaparin/Lovenox 40 mg SQ daily (WT < 150 kg, CrCl > 30 mL/min) *Enoxaparin/Lovenox 30 mg SQ daily (WT < 150 kg, CrCl > 10-29 mL/min) *Enoxaparin/Lovenox 30 mg SQ BID (WT < 150 kg, CrCl > 30 mL/min) AND/OR *Sequential Compression Device (SCD) 5 or more Highest Order ONE of the following medications: *Heparin 5000 units SQ TID (Preferred with Epidurals) *Enoxaparin/Lovenox 40 mg SQ daily (WT < 150 kg, CrCl > 30 mL/min) *Enoxaparin/Lovenox 30 mg SQ daily (WT < 150 kg, CrCl > 10-29 mL/min) *Enoxaparin/Lovenox 30 mg SQ BID (WT < 150 kg, CrCl > 30 mL/min) AND *Sequential Compression Device (SCD) Assessment and Plan Plan L UE brachiobasilic AVF (1st stage) Ready for surgery. Operative site marked. To OR Discharge Planning D/C today [facility] [phone] Elliott Almaguer MD Aug 01, 2017 11:51
--- NOTE | 2017-08-01 13:00 | HHI.PR ---
cc: Elliott Almaguer MD Immediate Post Op Note Procedure Date: Aug 01, 2017 Pre Op Diagnosis: ESRD, need for HD access Post Op Diagnosis: ESRD, need for HD access Surgeon: Elliott Almaguer Supervisor Front(s): Elliott Alexander Procedure: L brachiobasilic AVF (1st stage) Findings: 3mm vein, 4mm artery good thrill after surgery strong Doppler signal in wrist Complications: none Specimen(s) removed: none Estimated blood loss: 10mL Anesthesia: LMA Drains: None Fluids: 300mL IVF Patient to: PACU Patient Condition: Good Date/Time of Procedure: SEE SURGICAL CARE RECORD Elliott Almaguer MD Aug 01, 2017 13:00
[2017-08-01 14:28] VITALS: BP 145/65; PULSE 62; RESP 14; TEMP 97.4; O2SAT 94
--- NOTE | 2017-08-01 19:32 | MP ---
cc: Elliott Almaguer MD, Robert J MD DATE OF OPERATION: 08/01/2017 PREOPERATIVE DIAGNOSIS: End-stage renal disease, need for dialysis access. POSTOPERATIVE DIAGNOSIS: End-stage renal disease, need for dialysis access. PROCEDURE: Left brachial basilic arteriovenous fistula (first stage) ATTENDING SURGEON: Elliott Almaguer MD COUNSELING PSYCHOLOGIST SURGEON Elliott Alexander ANESTHESIA: General. INDICATIONS: Mr. Degroot is a 67-year-old gentleman with end-stage renal disease who need dialysis access. Preoperative imaging suggested he had adequate left basilic vein. He is taken to the operating room for this planned therapy. PROCEDURE IN DETAIL: Informed consent was obtained from patient. He was taken to the operating room and placed supine on the operating room table. Appropriate timeout was taken to ensure the patient's identity, operative site and planned procedure. The administration of 1 gram of vancomycin was initiated prior to the skin incision and will be discontinued after a single preoperative dose. Vancomycin was chosen because of the patient's end-stage renal disease. Everyone in the room agreed with timeout and we proceeded. His left arm was prepped and draped. Incision was made over the mid distal aspect of the upper arm, carried down through subcutaneous tissue with electrocautery. Basilic vein was identified and dissected free for several centimeters. The brachial artery was identified in the medial aspect of the incision and dissected free. The patient was systemically heparinized with 3000 units of IV heparin. Proximal and distal control of the brachial was obtained with profunda clamps and a longitudinal arteriotomy was made with an 11 blade and distended with [place] scissors. The vein was clamped at the distal lend, the distal end was transected and the distal end was oversewn with silk suture. The vein was spatulated and sewn end-to-side with running 6-0 Prolene suture. At the completion, it was flushed and noted to hemostatic. There was an excellent thrill in the fistula and a nice Doppler signal in the wrist. The heparin was reversed with protamine. The wound was made hemostatic, infiltrated with Marcaine and closed with 2-0 Polysorb, 3-0 Polysorb and 4-0 Monocryl. Sponge and needle counts were correct at the end of the case. I was present, scrubbed and performed the entire procedure. MD SHABANA Butterfield//ari , 05:53 PM , 07:08 PM CARLOS
== END | disposition home or self-care (01) ==
LOC: HSDC 09:06
PROVIDERS: ATTEND Surgery
DX: I13.11 Hypertensive heart and chronic kidney disease without heart failure, with stage 5 chronic kidney disease, or end stage renal disease (principal); N18.6 End stage renal disease; I73.9 Peripheral vascular disease, unspecified; I25.10 Atherosclerotic heart disease of native coronary artery without angina pectoris; Z99.2 Dependence on renal dialysis; Z89.611 Acquired absence of right leg above knee; Z01.818 Encounter for other preprocedural examination
CPT/HCPCS: 01844; 36821; 76937; 80048; 82948; 85025; 85610; J1644; J2370; J2720; J3010; J3370; J7040; J7050; J7120

== ENCOUNTER 2017-11-07 12:12 | Observation (INO) | payer SELFPAY ==
[~2017-11-07] VITALS: Ht 170.2 cm; Wt 77.0 kg
[~2017-11-07 12:12] MED LIST changes: +ACETAMINOPHEN 1000 MG/100 ML 100 ML IV ONE; -AMLO5TAB2 PO; -APIX2.5T PO; -ATOR40TA16 PO; -BUPIVACAINE HCL PF 0.5% 10 ML VIAL ONE; -CHLORHEXIDINE GLUCONATE 2 % 1 PACK (2 CLOTHS) TOPICAL PRN; -COLL30T TOPICAL; -DO NOT ADM ANY ANTICOAGULANT DRUGS PRN; -FAMO20TA2 PO; -FURO1TAB60 PO; -HEPARIN SODIUM - IV 10,000 UNITS/10 ML VIAL ONE; -HEPARIN-NS/PF INJ 500 ML ONE; -HUMA100I3 SQ; -HYDR-3799 PO; -IPRASOL INH; -LEXA10TA PO; -LIDOCAINE HCL 1% PF 5 ML SYRINGE OTHER ONE; -LISI2.5T3 PO; -METO25TA3 PO; -METO5TAB PO; -METOPROLOL TARTRATE 25 MG TAB PO PRN; -PHENYLEPH/NS 1000 MCG/10 ML SYR IV ONE; -PROPOFOL 200 MG/20 ML AMP IV ONE; -PROTAMINE SULFATE 50 MG/5 ML VIAL ONE; -SODIUM CHLOR 0.9% 250 ML INJ 250 ML IV ONE; -SODIUM CHLORID 0.9% 500 ML IV PRN; -THROMBIN (TOPICAL) 20,000 UNIT SPRAY KIT ONE; -VANCOMYCIN HCL 1000 MG VIAL ONE; -ePHEDrine/NS 25 MG/5 ML SYRINGE IV ONE
[2017-11-07] MEDS ORDERED: LEVEMIR SQ (12:52)
[2017-11-07] MEDS ORDERED: METOPROLOL TARTRATE 25 MG TAB PO PRN (13:00)
[2017-11-07] MEDS ORDERED: CHLORHEXIDINE GLUCONATE 2 % 1 PACK (2 CLOTHS) TOPICAL PRN (13:00)
[2017-11-07] MEDS ORDERED: LACTATED RINGER'S 1000 ML IV PRN (13:00)
[2017-11-07] MEDS ORDERED: POVIDONE IODINE 5% (ANTISEPSIS KIT) 4 APPLICATIONS EACH NARE PRN (13:00)
[2017-11-07] MEDS ORDERED: SODIUM CHLORID 0.9% 500 ML IV PRN (13:00)
--- NOTE | 2017-11-07 13:15 | HHI.HP ---
History of Present Illness Chief Complaint: ESRD, need for HD access History of Present Illness 67 yo male with ESRD s/p L UE brachiobasilic AVF (1st stage) who presents for 2nd stage. No hand complaints. Otherwise doing well; dana HD yesterday. Past/Family/Social History Past Medical History ESRD HTN CAD CDH RA XOL Past Surgical History AKA L UE AVF L LE endovascular interventions Social History nonsmoker Family History [place] Home Medications Active Scripts Oxygen (O2) (Oxygen (O2)) Device, LITER ELIZABETH.CANULA CONTINUOUS for Prevent Hypoxemia, #2 Oxygen Concentrator Portable Gaseous 2 L/min via Nasal Canula Continuous For 99 months Prov:Toribio Cespedes MD 06/19/17 Reported Medications Insulin Detemir Inj (Levemir Inj) 1,000 unit/ 10 ML Vial, 8 UNITS SQ AC BREAKFAST for Blood Sugar Management, VIAL 0 Refills Do not mix with any other Insulin. 11/07/17 Labetalol (Labetalol) 300 Mg Tab, 600 MG PO TID for Blood Pressure Management, TAB 0 Refills 08/01/17 Rosuvastatin (Rosuvastatin) 40 Mg Tab, 40 MG PO DAILY for Cholesterol Management , #30 TAB 0 Refills 08/01/17 Bumetanide (Bumetanide) 1 Mg Tab, 2 MG PO DAILY, #30 TAB 0 Refills 08/01/17 Amlodipine (Amlodipine) 10 Mg Tab, 10 MG PO DAILY for Blood Pressure Management , #30 TAB 0 Refills 08/01/17 Oxygen tank (Oxygen tank) 1 Ea Tank, LITER ELIZABETH.CANULA CONTINUOUS for HYPOXEMIA PREVENTION, #2 Oxygen Concentrator Portable Gaseous 2 L/min via Nasal Cannula Continuous For 99 months 06/18/17 Acetaminophen (Acetaminophen) 325 Mg Capsule, 650 CAP PO Q4HR for Pain Management 05/30/17 Coded Allergies: No Known Allergies (Unverified , 11/07/17) Review of Systems Constitutional: DENIES: Diaphoretic episodes, Fatigue, Fever, Weight gain, Weight loss, Chills, Dizziness, Change in appetite, Night Sweats Respiratory: DENIES: Apneas, Cough, Snoring, Wheezing, Hemoptysis, Sputum production, Shortness of breath Physical Exam Vitals/I&O Date Time Temp Pulse Resp B/P (MAP) Pulse Ox O2 Delivery O2 Flow Rate FiO2 11/07/17 12:55 98.0 67 18 143/63 (89) 99 Neuro: alert, oriented HEENT: NC/AT Neck: no JVD Heart: reg rate Lungs: clear B Vascular: palpable L UE thrill hand ok Extremities: R AKA Laboratory Tests Test 11/07/17 12:55 duplex reviewed Caprini VTE Risk Assessment Caprini VTE Risk Assessment: No/Low Risk (score <= 1) Caprini Risk Assessment Model Point Value = 1 Point Value = 2 Point Value = 3 Point Value = 5 Age 41-60 Minor surgery BMI > 25 kg/m2 Swollen legs Varicose veins or History of unexplained or recurrent spontaneous Oral contraceptives or hormone replacement Sepsis (< 1 month) Serious lung disease, including pneumonia (< 1 month) Abnormal pulmonary function Acute myocardial infarction Congestive heart failure (< 1 month) History of inflammatory bowel disease Medical patient at bed rest Age 61-74 Arthroscopic surgery Major open surgery (> 45 min) Laparoscopic surgery (> 45 min) Malignancy Confined to bed (> 72 hours) Immobilizing plaster cast Central venous access Age >= 75 History of VTE Family history of VTE Factor V Leiden Prothrombin 12964H Lupus anticoagulant Anticardiolipin antibodies Elevated serum homocysteine Heparin-induced thrombocytopenia Other congenital or acquired thrombophilia Stroke (< 1 month) Elective arthroplasty Hip, pelvis, or leg fracture Acute spinal cord injury (< 1 month) Prophylaxis Regimen Total Risk Factor Score Risk Level Prophylaxis Regimen 0-1 Low Early ambulation 2 Moderate Order ONE of the following: *Sequential Compression Device (SCD) *Heparin 5000 units SQ BID 3-4 Higher Order ONE of the following medications: *Heparin 5000 units SQ TID *Enoxaparin/Lovenox 40 mg SQ daily (WT < 150 kg, CrCl > 30 mL/min) *Enoxaparin/Lovenox 30 mg SQ daily (WT < 150 kg, CrCl > 10-29 mL/min) *Enoxaparin/Lovenox 30 mg SQ BID (WT < 150 kg, CrCl > 30 mL/min) AND/OR *Sequential Compression Device (SCD) 5 or more Highest Order ONE of the following medications: *Heparin 5000 units SQ TID (Preferred with Epidurals) *Enoxaparin/Lovenox 40 mg SQ daily (WT < 150 kg, CrCl > 30 mL/min) *Enoxaparin/Lovenox 30 mg SQ daily (WT < 150 kg, CrCl > 10-29 mL/min) *Enoxaparin/Lovenox 30 mg SQ BID (WT < 150 kg, CrCl > 30 mL/min) AND *Sequential Compression Device (SCD) Assessment and Plan Plan L UE AVF (1st stage); here for second stage, likely to include transposition Discharge Planning tomorrow after HD (POD#1) [phone] Elliott Almaguer MD Nov 07, 2017 13:15
[2017-11-07 13:18] LABS: AUTOMATED NEUTROPHIL # 8.5 TH/MM3 (1.8-7.7); BASOPHIL # 0.1 TH/MM3 (0-0.2); BASOPHIL % 1.2 % (0.0-2.0); EOSINOPHIL # 0.3 TH/MM3 (0-0.4); EOSINOPHIL % 2.4 % (0.0-4.0); HEMATOCRIT 41.2 % (39.0-51.0); HEMOGLOBIN 13.4 GM/DL (13.0-17.0); LYMPH % 13.5 % (9.0-44.0); LYMPHOCYTE # 1.6 TH/MM3 (1.0-4.8); MEAN CORPUSCULAR HEMOGLOBIN 26.3 PG (27.0-34.0); MEAN CORPUSCULAR HGB CONC 32.5 % (32.0-36.0); MEAN PLATELET VOLUME 8.4 FL (7.0-11.0); MONO % 9.6 % (0.0-8.0); MONOCYTE # 1.1 TH/MM3 (0-0.9); NEUT % 73.3 % (16.0-70.0); PLATELET COUNT 290 TH/MM3 (150-450); RED BLOOD COUNT 5.09 MIL/MM3 (4.50-5.90); RED CELL DISTRIBUTION WIDTH 15.9 % (11.6-17.2); WHITE BLOOD COUNT 11.5 TH/MM3 (4.0-11.0)
[2017-11-07 13:24] LABS: INTERNATIONAL NORMALIZED RATIO 1.1 RATIO; PROTHROMBIN TIME - PATIENT 10.9 SEC (9.8-11.6)
[2017-11-07 13:34] LABS: BICARBONATE 23.6 MEQ/L (21.0-32.0); CALCIUM 9.2 MG/DL (8.5-10.1); CREATININE 5.39 MG/DL (0.60-1.30)
[2017-11-07] MEDS ORDERED: PROTAMINE SULFATE 50 MG/5 ML VIAL ONE (15:11)
[2017-11-07] MEDS ORDERED: HEPARIN SODIUM - IV 10,000 UNITS/10 ML VIAL ONE (15:12)
[2017-11-07] MEDS ORDERED: HEPARIN-NS/PF INJ 500 ML ONE (15:12)
[2017-11-07] MEDS ORDERED: THROMBIN (TOPICAL) 20,000 UNIT SPRAY KIT ONE (15:12)
[2017-11-07] MEDS ORDERED: fentaNYL CITRATE 250 MCG/5 ML AMP ONE (15:39)
[2017-11-07] MEDS ORDERED: VANCOMYCIN HCL 1000 MG VIAL ONE (15:56)
[2017-11-07] MEDS ORDERED: SODIUM CHLOR 0.9% 250 ML INJ 250 ML ONE (15:56)
[2017-11-07] MEDS ORDERED: BUPIVACAINE HCL PF 0.5% 30 ML VIAL INFIL ONE (17:04)
--- NOTE | 2017-11-07 17:13 | HHI.PR ---
cc: Elliott Almaguer MD Immediate Post Op Note Procedure Date: Nov 07, 2017 Pre Op Diagnosis: ESRD, need for HD access Post Op Diagnosis: ESRD, need for HD access Surgeon: Elliott Almaguer Brazing Machine Operator(s): Desire Sanchez Procedure: L UE Access revision (2nd stage, basilic vein transposition) Findings: 6-7mm vein + thrill and bruit after transposition + Doppler signal in wrist Complications: none Specimen(s) removed: none Estimated blood loss: 30mL Anesthesia: General Drains: None Fluids: 300mL IVF Patient to: PACU Patient Condition: Good Date/Time of Procedure: SEE SURGICAL CARE RECORD Elliott Almaguer MD Nov 07, 2017 17:13
[2017-11-07] MEDS ORDERED: DEXTROSE 50% IN WATER 50 ML VIAL(D50) IV PUSH PRN (17:15)
[2017-11-07] MEDS ORDERED: LACTULOSE SYRUP 20 GM/30 ML CUP PO PRN (17:15)
[2017-11-07] MEDS ORDERED: GLUCAGON 1 MG/ML VIAL OTHER PRN (17:15)
[2017-11-07] MEDS ORDERED: BISACODYL 10 MG SUPP RECTAL PRN (17:15)
[2017-11-07] MEDS ORDERED: SENNOSIDES 8.6 MG TAB PO PRN (17:15)
[2017-11-07] MEDS ORDERED: HYDROmorphone HCL 2 MG TAB PO PRN (17:15)
[2017-11-07] MEDS ORDERED: *morphine SULFATE 10 MG/ML PERIprocedure ONLY ONE (17:47)
[2017-11-07] MEDS: LABETALOL HCL 300 MG TAB PO SCH (18:00)
--- NOTE | 2017-11-07 18:15 | MP ---
cc: Elliott Almaguer MD DATE OF OPERATION: 11/07/2017 PREOPERATIVE DIAGNOSIS: Endstage renal disease, need for dialysis access. POSTOPERATIVE DIAGNOSIS: Endstage renal disease, need for dialysis access. PROCEDURE PERFORMED: Left brachiobasilic arteriovenous fistula (second stage transposition). ATTENDING SURGEON: Elliott Almaguer MD PUMPER GAGER SURGEON: Radha Sanchez ANESTHESIA: General. INDICATIONS FOR PROCEDURE: Mr. Degroot is a 67-year-old gentleman with end-stage renal disease, who had a left brachiobasilic fistula, with a first stage of a planned 2-stage procedure several months ago. This is mature by ultrasound. He was taken to the operating room for second stage. DESCRIPTION OF PROCEDURE: Informed consent was obtained from the patient. He was taken to the operating suite, placed supine on the operating table. Appropriate timeout was taken to ensure the patient's identity, operative site and planned procedure and the administration of gram vancomycin was initiated prior to skin incision and will be discontinued after a single preoperative dose. Vancomycin was chosen because of the patient's end-stage renal disease. Everyone in the room agreed with timeout and we proceeded. His left arm was prepped and draped. Incision made along the patient's upper arm, carried down through subcutaneous tissue with electrocautery. The basilic vein was identified, dissected free from nearly to the anastomosis all the way up to the axillary vein. Side branches were ligated with 3-0 silk. The vein was marked for orientation, clamped distally, transected and the distal end was oversewn with 3-0 silk and a large Hemoclip. A tunnel was then created, taking caution not to twist it. The brachial artery was identified in the medial aspect of the orbit, dissected free. The patient was systemically heparinized with 3000 units of IV heparin. Proximal and distal control of the brachial artery was obtained with profunda clamps and a longitudinal arteriotomy was made with a ____ blade, extended with [place] scissors. The vein was spatulated and sewn end-to-side with running 6-0 Prolene suture. At the completion, it was flushed and noted to be hemostatic. There was a nice thrill in the fistula and a Doppler signal in the wrist. The heparin was reversed with protamine. The wound was irrigated, infiltrated with Marcaine and made hemostatic and closed with 2-0 Polysorb, 3-0 Polysorb and 4-0 Monocryl. The sponge and needle counts were correct at the end of the case. I was present, scrubbed and performed the entire procedure. MD SHABANA Butterfield/JEMIMA , 05:18 PM , 06:13 PM
[2017-11-07] MEDS ORDERED: ACETAMINOPHEN 325 MG TAB ONE (18:26)
[2017-11-07 18:45] VITALS: BP 169/85; PULSE 60; RESP 18; TEMP 98.2; O2SAT 100
[2017-11-07 19:00] VITALS: BP 160/71; PULSE 65; RESP 22; TEMP 98.6; O2SAT 99
[2017-11-07] MEDS ORDERED: DO NOT ADM ANY ANTICOAGULANT DRUGS PRN (19:45)
[2017-11-07 20:00] VITALS: PULSE 64
[2017-11-07] MEDS ORDERED: ePHEDrine/NS 25 MG/5 ML SYRINGE IV ONE (20:13)
[2017-11-07] MEDS ORDERED: LIDOCAINE HCL 1% PF 5 ML SYRINGE OTHER ONE (20:13)
[2017-11-07] MEDS ORDERED: PROPOFOL 200 MG/20 ML AMP IV ONE (20:13)
[2017-11-07] MEDS ORDERED: PHENYLEPH/NS 1000 MCG/10 ML SYR IV ONE (20:13)
[2017-11-07] MEDS ORDERED: ACETAMINOPHEN 325 MG TAB PO PRN (20:45)
[2017-11-07 21:00] VITALS: PULSE 66
[2017-11-07] MEDS: INSULIN ASPART SUPPLEMENTAL SCALE SQ SCH (21:00)
[2017-11-07] MEDS: DOCUSATE SODIUM 50 MG/SENNA 8.6 MG TAB PO SCH (21:14)
[2017-11-07] MEDS: MORPHINE SULFATE 4 MG/ML INJ IV PUSH PRN (21:27)
[2017-11-07 22:00] VITALS: PULSE 68
[2017-11-07 23:00] VITALS: BP 156/70; PULSE 68; RESP 22; TEMP 98.5; O2SAT 100
[2017-11-08] VITALS (17 sets, daily range): BP systolic 111–197; BP diastolic 53–80; PULSE 56–70; RESP 20–22; TEMP 98.6–99.1; O2SAT 96–100
[2017-11-08] MEDS: MORPHINE SULFATE 4 MG/ML INJ IV PUSH PRN (03:53)
[2017-11-08 07:07] LABS: BICARBONATE 18.2 MEQ/L (21.0-32.0); CALCIUM 8.6 MG/DL (8.5-10.1); CREATININE 6.33 MG/DL (0.60-1.30)
[2017-11-08] MEDS: INSULIN ASPART SUPPLEMENTAL SCALE SQ SCH ×3 (07:54→17:00)
[2017-11-08] MEDS: LABETALOL HCL 300 MG TAB PO SCH ×4 (08:18→18:46)
[2017-11-08] MEDS: DOCUSATE SODIUM 50 MG/SENNA 8.6 MG TAB PO SCH (08:19)
[2017-11-08] MEDS ORDERED: PERC5TAB12 PO (08:57)
[2017-11-08] MEDS ORDERED: ATORVASTATIN 80 MG TAB PO SCH (09:00)
[2017-11-08] MEDS ORDERED: ASPIRIN 81 MG CHEW TAB PO SCH (09:00)
[2017-11-08] MEDS ORDERED: BUMETANIDE 1 MG TAB PO SCH (09:00)
--- NOTE | 2017-11-08 09:02 | PD.VS.PN ---
Subjective POD #: 1 Procedure(s): L UE Access revision (2nd stage, basilic vein transposition) Subjective/Hospital Course Pt doing well Pain controlled Pt denied hand pain Palpable thrill noted near L UE AVF Pt c/o mild incisional discomfort Objective Vitals/I&O Date Time Temp Pulse Resp B/P (MAP) Pulse Ox O2 Delivery O2 Flow Rate FiO2 11/08/17 05:00 68 11/08/17 04:00 66 11/08/17 03:58 22 11/08/17 03:00 98.6 69 22 170/76 (107) 100 11/08/17 03:00 69 11/08/17 02:00 66 11/08/17 01:00 68 11/08/17 00:00 66 11/07/17 23:00 68 11/07/17 23:00 98.5 68 22 156/70 (98) 100 11/07/17 22:00 68 11/07/17 21:00 66 11/07/17 20:00 64 11/07/17 19:00 65 11/07/17 19:00 98.6 65 22 160/71 (100) 99 11/07/17 18:45 98.2 60 18 169/85 (113) 100 11/07/17 18:30 98.5 60 15 177/77 (110) 99 Nasal Cannula 2 11/07/17 18:15 60 14 146/65 (92) 99 Nasal Cannula 2 11/07/17 18:00 58 14 153/69 (97) 99 Nasal Cannula 2 11/07/17 17:45 56 17 143/65 (91) 100 Nasal Cannula 2 11/07/17 17:39 98.5 57 15 162/65 (97) 95 Nasal Cannula 2 11/07/17 12:55 98.0 67 18 143/63 (89) 99 11/08/17 11/08/17 11/08/17 07:00 15:00 23:00 Intake Total 240 ml Output Total 100 ml Balance 140 ml Exam: + thrill Neg hand pain L UE Incision intact w/ Ecchymosis present near the incision line/ NO S/D/ erythema UE 5/5 Laboratory Laboratory Tests Test 11/07/17 12:55 11/08/17 06:17 White Blood Count 11.5 Red Blood Count 5.09 Hemoglobin 13.4 Hematocrit 41.2 Mean Corpuscular Volume 81.0 Mean Corpuscular Hemoglobin 26.3 Mean Corpuscular Hemoglobin Concent 32.5 Red Cell Distribution Width 15.9 Platelet Count 290 Mean Platelet Volume 8.4 Neutrophils (%) (Auto) 73.3 Lymphocytes (%) (Auto) 13.5 Monocytes (%) (Auto) 9.6 Eosinophils (%) (Auto) 2.4 Basophils (%) (Auto) 1.2 Neutrophils # (Auto) 8.5 Lymphocytes # (Auto) 1.6 Monocytes # (Auto) 1.1 Eosinophils # (Auto) 0.3 Basophils # (Auto) 0.1 CBC Comment DIFF FINAL Differential Comment Prothrombin Time 10.9 Prothromb Time International Ratio 1.1 Blood Urea Nitrogen 59 68 Creatinine 5.39 6.33 Random Glucose 124 100 Calcium Level 9.2 8.6 Sodium Level 137 136 Potassium Level 4.2 4.4 Chloride Level 100 101 Carbon Dioxide Level 23.6 18.2 Anion Gap 13 17 Estimat Glomerular Filtration Rate 11 9 Assessment and Plan Plan Pt S/P L UE AVF (1st stage); here for second stage, likely to include transposition Pt doing well W/ expected mild incisional discomfort Plan Discussed post operative care and management w/ pt and Pt clear for d/c post HD Arranged out pt f/u in 3W Myranda Boston NP [facility] [phone] Discharge Planning Today after HD (POD#1) [phone] Myranda Boston Nov 08, 2017 09:02
--- NOTE | 2017-11-08 09:05 | PD.VS.DC ---
Discharge Summary Admission Date: Nov 07, 2017 at 17:15 Discharge Date: Nov 08, 2017 Admission Diagnosis: (1) ESRD (end stage renal disease) Discharge Diagnosis: (1) AVF (arteriovenous fistula) ICD Codes: I77.0 - Arteriovenous fistula, acquired (2) ESRD (end stage renal disease) ICD Codes: N18.6 - End stage renal disease Brief History from admission 67 yo male with ESRD s/p L UE brachiobasilic AVF (1st stage) who presents for 2nd stage. No hand complaints. Otherwise doing well; dana HD yesterday. Procedure(s): L UE Access revision (2nd stage, basilic vein transposition) Significant Findings + thrill Neg hand pain L UE Incision intact w/ Ecchymosis present near the incision line/ NO S/D/ erythema UE 09/28 Laboratory Tests Test 11/07/17 12:55 11/08/17 06:17 White Blood Count 11.5 TH/MM3 (4.0-11.0) Mean Corpuscular Hemoglobin 26.3 PG (27.0-34.0) Neutrophils (%) (Auto) 73.3 % (16.0-70.0) Monocytes (%) (Auto) 9.6 % (0.0-8.0) Neutrophils # (Auto) 8.5 TH/MM3 (1.8-7.7) Monocytes # (Auto) 1.1 TH/MM3 (0-0.9) Blood Urea Nitrogen 59 MG/DL (7-18) 68 MG/DL (7-18) Creatinine 5.39 MG/DL (0.60-1.30) 6.33 MG/DL (0.60-1.30) Random Glucose 124 MG/DL (74-106) Estimat Glomerular Filtration Rate 11 ML/MIN (>89) 9 ML/MIN (>89) Carbon Dioxide Level 18.2 MEQ/L (21.0-32.0) Anion Gap 17 MEQ/L (5-15) Hospital Course: 67 yo male with ESRD s/p L UE brachiobasilic AVF (1st stage) who presents for 2nd stage. POD 1 Pt doing well Pain controlled Pt denied hand pain Palpable thrill noted near L UE AVF Pt c/o mild incisional discomfort Pt clear for D/C Arranged out pt f/u E- [place] checked- No recent activity Prescribed recommended post operative medication Allergies Coded Allergies Type Severity Reaction Last Updated Verified No Known Allergies 11/07/17 No 11/06/17 11/06/17 11/07/17 11/07/17 11/08/17 11/08/17 06:00 18:00 06:00 18:00 06:00 18:00 Intake Total 750 ml 240 ml Output Total 30 ml 100 ml Balance 720 ml 140 ml Intake Oral 240 ml Other 750 ml Output Urine Total 100 ml Estimated Blood Loss 30 ml Laboratory Tests Test 11/07/17 12:55 11/08/17 06:17 White Blood Count 11.5 TH/MM3 Red Blood Count 5.09 MIL/MM3 Hemoglobin 13.4 GM/DL Hematocrit 41.2 % Mean Corpuscular Volume 81.0 FL Mean Corpuscular Hemoglobin 26.3 PG Mean Corpuscular Hemoglobin Concent 32.5 % Red Cell Distribution Width 15.9 % Platelet Count 290 TH/MM3 Mean Platelet Volume 8.4 FL Neutrophils (%) (Auto) 73.3 % Lymphocytes (%) (Auto) 13.5 % Monocytes (%) (Auto) 9.6 % Eosinophils (%) (Auto) 2.4 % Basophils (%) (Auto) 1.2 % Neutrophils # (Auto) 8.5 TH/MM3 Lymphocytes # (Auto) 1.6 TH/MM3 Monocytes # (Auto) 1.1 TH/MM3 Eosinophils # (Auto) 0.3 TH/MM3 Basophils # (Auto) 0.1 TH/MM3 CBC Comment DIFF FINAL Differential Comment Prothrombin Time 10.9 SEC Prothromb Time International Ratio 1.1 RATIO Blood Urea Nitrogen 59 MG/DL 68 MG/DL Creatinine 5.39 MG/DL 6.33 MG/DL Random Glucose 124 MG/DL 100 MG/DL Calcium Level 9.2 MG/DL 8.6 MG/DL Sodium Level 137 MEQ/L 136 MEQ/L Potassium Level 4.2 MEQ/L 4.4 MEQ/L Chloride Level 100 MEQ/L 101 MEQ/L Carbon Dioxide Level 23.6 MEQ/L 18.2 MEQ/L Anion Gap 13 MEQ/L 17 MEQ/L Estimat Glomerular Filtration Rate 11 ML/MIN 9 ML/MIN Orders Procedure Category Date Status Time Acetaminophen 1000 MED 11/07/17 Complete Mg/100 Ml (Ofirmev 10 11:56 Basic Metabolic Panel LAB 11/07/17 Complete (Bmp) 12:28 Complete Blood Count LAB 11/07/17 Complete With Diff 12:28 Prothrombin Time / LAB 11/07/17 Complete Inr (Pt) 12:28 Type And Screen BBK 11/07/17 Complete 12:28 Lactated Ringer's MED 11/07/17 In Process 1000 Ml Inj (Lr 1000 M 13:00 Sodium Chlorid 0.9% MED 11/07/17 In Process 500 Ml Inj (Ns 500 M 13:00 Metoprolol Tartrate MED 11/07/17 In Process (Lopressor) 13:00 Povidone Iod 5% MED 11/07/17 In Process Antisepsis Kit 13:00 Chlorhexidine 2% MED 11/07/17 In Process Cloth (Chlorhexidine 13:00 Protamine Sulfate Inj MED 11/07/17 Complete (Protamine Sulfate 15:11 Heparin Inj (Heparin MED 11/07/17 Complete Inj) 15:12 Thrombin Top [place] MED 11/07/17 Complete (Thrombin Top [place]) 15:12 Heparin-Ns/Pf Inj MED 11/07/17 Complete (Heparin-Ns/Pf Inj) 15:12 Fentanyl Inj MED 11/07/17 Complete (Fentanyl Inj) 15:39 Vancomycin Inj MED 11/07/17 Complete (Vancomycin Inj) 15:56 Sodium Chlor 0.9% 250 MED 11/07/17 Complete Ml Inj (Ns 250 Ml 15:56 Sds Pre Op Care [facility] 11/07/17 Complete Bupivacaine Pf 0.5% MED 11/07/17 Complete Inj (Marcaine Pf 0.5 17:04 Place In Observation ADMITTING 11/07/17 Transmitted Code Status CODE 11/07/17 Transmitted 17:13 Vital Signs (Adult) APOLONIA 11/07/17 Complete 17:13 Rougher Helper / APOLONIA 11/07/17 In Process Telemetry 17:13 Activity Oob Ad Naila APOLONIA 11/07/17 In Process 17:13 Precautions AP[facility]IA 11/07/17 In Process 17:13 Diet Heart Healthy DIET 11/07/17 Transmitted Dinner Basic Metabolic Panel LAB 11/08/17 Complete (Bmp) 06:00 Consult Nephrology CONS 11/07/17 Transmitted Docusate Sodium-Senna MED 11/07/17 In Process (Mikki-Colace) 21:00 Sennosides (Senokot) MED 11/07/17 In Process 17:15 Bisacodyl Supp MED 11/07/17 In Process (Dulcolax Supp) 17:15 Lactulose Liq MED 11/07/17 In Process (Lactulose Liq) 17:15 Amlodipine (Norvasc) MED 11/08/17 In Process 09:00 Bumetanide MED 11/08/17 In Process (Bumetanide) 09:00 Labetalol (Trandate) MED 11/07/17 In Process 18:00 Atorvastatin (Lipitor) MED 11/08/17 In Process 09:00 Aspirin Chew (Aspirin MED 11/08/17 In Process Chew) 09:00 Oxycodone (Roxicodone) MED 11/07/17 In Process 17:15 Hydromorphone MED 11/07/17 In Process (Dilaudid) 17:15 Morphine Inj MED 11/07/17 In Process (Morphine Inj) 17:15 Blood Glucose Goal APOLONIA 11/07/17 In Process (Criteria) 17:15 Hypoglycemia 70 Mg/Dl APOLONIA 11/07/17 In Process Or < 17:[address]: Other APOLONIA 11/07/17 In Process 17:15 Dextrose 50% In Jayy MED 11/07/17 In Process (Vial) Inj (D50w (Vi 17:15 Glucagon Inj MED 11/07/17 In Process (Glucagon Inj) 17:15 Insulin Aspart MED 11/07/17 In Process Supplemtl Scale 21:00 (Hub Use Only)Inp Phy CONS 11/07/17 Transmitted Cons/Ref *Morphine Inj MED 11/07/17 Complete (*Morphine Inj 17:47 Acetaminophen MED 11/07/17 Complete (Tylenol) 18:26 Class Iv Pacu Ea 30 [facility] 11/07/17 Complete MIN General/Pacu [facility] 11/07/17 Complete Post Anesthesia Oxygen [facility] 11/07/17 Complete Nursing Information MED 11/07/17 In Process (Misc Nursing Inform 19:45 Heparin Inj (Heparin MED 11/08/17 In Process Inj) 17:00 Acetaminophen MED 11/07/17 In Process (Tylenol) 20:45 ^ Other Nursing Orders AP[facility]ONIA 11/08/17 In Process 07:38 Attending Discharge DISCHARGE 11/08/17 Transmitted Order Vital Signs Date Time Temp Pulse Resp B/P (MAP) Pulse Ox O2 Delivery O2 Flow Rate FiO2 11/08/17 05:00 68 11/08/17 04:00 66 11/08/17 03:58 22 11/08/17 03:00 98.6 69 22 170/76 (107) 100 11/08/17 03:00 69 11/08/17 02:00 66 11/08/17 01:00 68 11/08/17 00:00 66 11/07/17 23:00 68 11/07/17 23:00 98.5 68 22 156/70 (98) 100 11/07/17 22:00 68 11/07/17 21:00 66 11/07/17 20:00 64 11/07/17 19:00 65 11/07/17 19:00 98.6 65 22 160/71 (100) 99 11/07/17 18:45 98.2 60 18 169/85 (113) 100 11/07/17 18:30 98.5 60 15 177/77 (110) 99 Nasal Cannula 2 11/07/17 18:15 60 14 146/65 (92) 99 Nasal Cannula 2 11/07/17 18:00 58 14 153/69 (97) 99 Nasal Cannula 2 11/07/17 17:45 56 17 143/65 (91) 100 Nasal Cannula 2 11/07/17 17:39 98.5 57 15 162/65 (97) 95 Nasal Cannula 2 11/07/17 12:55 98.0 67 18 143/63 (89) 99 Discharge Condition: Good Discharge Disposition: Discharge Home Discharge Instructions: DIET Maintain a dialysis diet ACTIVITY Activity as tolerated No heavy lifting over a gallon of milk for 10 days You may shower then pat dry incision NO tub baths or swimming until your incision is fully healed WOUND CARE Leave your incision open to air Call to report an increase in swelling, pain, drainage or redness MEDICATIONS You were prescribed a narcotic pain medication that may cause drowsiness- no driving while taking this medication You were prescribed a narcotic pain medication that may cause constipation- Take with an over the counter stool softener Any questions or concerns: Call [facility] at [facility] [phone] Myranda Boston Nov 08, 2017 09:05
[2017-11-08] MEDS ORDERED: SODIUM CHLOR 0.9% 1000 ML INJ 1,000 ML IV PRN (11:54)
[2017-11-08] MEDS ORDERED: SODIUM CHLOR 0.9% 1000 ML INJ 1,000 ML OTHER PRN ×2 (11:54)
[2017-11-08] MEDS ORDERED: diphenhydrAMINE HCL 25 MG CAP PO PRN (12:00)
[2017-11-08] MEDS ORDERED: SODIUM CHLORIDE 0.9% FLUSH 10 ML FLUSH IV FLUSH PRN (12:00)
[2017-11-08] MEDS ORDERED: cloNIDine HCL 0.1 MG TAB PO PRN (12:00)
[2017-11-08] MEDS ORDERED: ALBUMIN 25% INJ 100 ML IV PRN (12:00)
[2017-11-08] MEDS ORDERED: GELATIN 12 MM/7 MM FOAM TOP PRN (12:00)
[2017-11-08] MEDS ORDERED: NITROGLYCERIN 0.4 MG SL 25 TABS/BTL SL PRN (12:00)
[2017-11-08] MEDS ORDERED: HEPARIN SODIUM - IV 10,000 UNITS/10 ML VIAL IV FLUSH PRN (12:00)
[2017-11-08] MEDS ORDERED: ACETAMINOPHEN 325 MG TAB PO PRN (12:00)
[2017-11-08] MEDS ORDERED: GENTAMICIN SULFATE 20 MG/2 ML VIAL OTHER PRN (12:00)
[2017-11-08] MEDS ORDERED: HEPARIN SODIUM - IV 10,000 UNITS/10 ML VIAL PRN (12:00)
[2017-11-08] MEDS ORDERED: MANNITOL 12.5 GM/50 ML VIAL IV PRN (12:00)
[2017-11-08] MEDS ORDERED: ONDANSETRON ODT 4 MG TAB PO PRN (12:15)
--- NOTE | 2017-11-08 13:46 | PD.CONS ---
HPI Service Nephrology Consult Requested By Reason for Consult ESRD on HD Primary Care Physician No Primary Care Physician History of Present Illness This is a 67 y/o male admitted for second step AVF surgery. He tolerated it well. He is maintained on HD MWF, due today. We were consulted to assist with dialysis management. PMH includes HTN, DM II, PAD s/p right AKA. He does not have anemia, is afebrile and not having any acute concerns. The AVF is patent, incision well approximated and has no drainage. PermCath is in right chest for HD use. He usually dialyzes in [place]. (Bouchra Mccurdy) Review of Systems Constitutional: COMPLAINS OF: Fatigue, DENIES: Fever Respiratory: DENIES: Shortness of breath Cardiovascular: DENIES: Chest pain, Dyspnea on Exertion (Bouchra Mccurdy) Past Family Social History Allergies: Coded Allergies: No Known Allergies (Unverified , 11/07/17) Past Medical History ESRD on HD MWF HTN CAD Hyperlipidemia RA A fib PVD Past Surgical History AKA L UE AVF L LE endovascular interventions Reported Medications Insulin Detemir Inj (Levemir Inj) 1,000 unit/ 10 ML Vial, 8 UNITS SQ AC BREAKFAST for Blood Sugar Management, VIAL 0 Refills Do not mix with any other Insulin. 11/07/17 Labetalol (Labetalol) 300 Mg Tab, 600 MG PO TID for Blood Pressure Management, TAB 0 Refills 08/01/17 Rosuvastatin (Rosuvastatin) 40 Mg Tab, 40 MG PO DAILY for Cholesterol Management , #30 TAB 0 Refills 08/01/17 Bumetanide (Bumetanide) 1 Mg Tab, 2 MG PO DAILY, #30 TAB 0 Refills 08/01/17 Amlodipine (Amlodipine) 10 Mg Tab, 10 MG PO DAILY for Blood Pressure Management , #30 TAB 0 Refills 08/01/17 Oxygen tank (Oxygen tank) 1 Ea Tank, LITER ELIZABETH.CANULA CONTINUOUS for HYPOXEMIA PREVENTION, #2 Oxygen Concentrator Portable Gaseous 2 L/min via Nasal Cannula Continuous For 99 months 06/18/17 Acetaminophen (Acetaminophen) 325 Mg Capsule, 650 CAP PO Q4HR for Pain Management 05/30/17 Active Ordered Medications Current Medications Medications (Trade) Dose Ordered Sig/Henrik Route Start Time Stop Time Status Last Admin Lactated Ringer's 1,000 ml @ 30 mls/hr Q24H PRN IV 11/07/17 13:00 11/10/17 12:59 Sodium Chloride 500 ml @ 30 mls/hr [id number] PRN IV 11/07/17 13:00 11/10/17 12:59 11/07/17 12:45 (Lopressor) 25 mg STEREOPTIC PROJECTION TOPOGRAPHER PRN PO 11/07/17 13:00 11/10/17 12:59 11/07/17 13:00 (Betadine 5% Antisepsis Kit) 1 applic STEREOPTIC PROJECTION TOPOGRAPHER PRN EACH NARE 11/07/17 13:00 11/10/17 12:59 11/07/17 13:04 (Chlorhexidine 2% Cloth) 3 pack STEREOPTIC PROJECTION TOPOGRAPHER PRN TOPICAL 11/07/17 13:00 11/10/17 12:59 11/07/17 12:30 (Heparin Inj) 5,000 units Q8H SQ 11/08/17 17:00 (Mikki-Colace) 1 tab BID PO 11/07/17 21:00 11/08/17 08:19 (Senokot) 17.2 mg Q12H PRN PO 11/07/17 17:15 (Dulcolax Supp) 10 mg DAILY PRN RECTAL 11/07/17 17:15 (Lactulose Liq) 30 ml DAILY PRN PO 11/07/17 17:15 (Norvasc) 10 mg DAILY PO 11/08/17 09:00 11/08/17 08:20 (Bumetanide) 2 mg DAILY PO 11/08/17 09:00 11/08/17 08:19 (Trandate) 600 mg TID PO 11/07/17 18:00 11/08/17 08:18 (Lipitor) 80 mg DAILY PO 11/08/17 09:00 11/08/17 08:19 (Aspirin Chew) 81 mg DAILY PO 11/08/17 09:00 11/08/17 08:20 (Roxicodone) 5 mg Q4H PRN PO 11/07/17 17:15 (Dilaudid) 2 mg Q4H PRN PO 11/07/17 17:15 (Morphine Inj) 2 mg Q1H PRN IV PUSH 11/07/17 17:15 11/08/17 03:53 (D50w (Vial) Inj) 50 ml UNSCH PRN IV PUSH 11/07/17 17:15 (Glucagon Inj) 1 mg UNSCH PRN OTHER 11/07/17 17:15 (NovoLOG SUPPLEMENTAL SCALE) 1 ACHS SLIDING SCALE SQ 11/07/17 21:00 11/07/17 21:00 [place] [place] ALL NURSING DEPARTME... UNSCH PRN .XX 11/07/17 19:45 11/08/17 19:44 (Tylenol) 650 mg Q6H PRN PO 11/07/17 20:45 Sodium Chloride 1,000 ml @ 0 mls/hr Q0M PRN OTHER 11/08/17 11:54 (Heparin Inj) 8,000 units UNSCH PRN IV FLUSH 11/08/17 12:00 Sodium Chloride 1,000 ml @ 200 mls/hr Q5H PRN IV 11/08/17 11:54 Sodium Chloride 1,000 ml @ 0 mls/hr Q0M PRN OTHER 11/08/17 11:54 (Mannitol Inj) 12.5 gm UNSCH PRN IV 11/08/17 12:00 Albumin Human 100 ml @ 60 mls/hr UNSCH PRN IV 11/08/17 12:00 (NS Flush) 5 ml UNSCH PRN IV FLUSH 11/08/17 12:00 (Heparin Inj) UNSCH PRN .XX 11/08/17 12:00 (Gentamicin Inj) 20 mg UNSCH PRN OTHER 11/08/17 12:00 (Zofran Odt) 4 mg UNSCH PRN PO 11/08/17 12:15 (Tylenol) 650 mg UNSCH PRN PO 11/08/17 12:00 (Benadryl) 25 mg UNSCH PRN PO 11/08/17 12:00 (Nitrostat Sl) 0.4 mg UNSCH PRN SL 11/08/17 12:00 (Catapres) 0.1 mg UNSCH PRN PO 11/08/17 12:00 (Gelfoam 12 Mm/7 Mm Top) 1 foam UNSCH PRN TOP 11/08/17 12:00 Family History Non contributory Social History Former smoker Uses wheelchair Full code (Bouchra Mccurdy) Physical Exam Vital Signs Vital Signs Date Time Temp Pulse Resp B/P (MAP) Pulse Ox O2 Delivery O2 Flow Rate FiO2 11/08/17 12:50 57 11/08/17 12:00 56 11/08/17 11:00 99.1 58 20 154/67 (96) 98 11/08/17 11:00 58 11/08/17 10:00 60 11/08/17 08:30 98.6 70 20 172/73 (106) 99 11/08/17 08:00 68 11/08/17 07:04 69 11/08/17 05:00 68 11/08/17 04:00 66 11/08/17 03:58 22 11/08/17 03:00 98.6 69 22 170/76 (107) 100 11/08/17 03:00 69 11/08/17 02:00 66 11/08/17 01:00 68 11/08/17 00:00 66 11/07/17 23:00 68 11/07/17 23:00 98.5 68 22 156/70 (98) 100 11/07/17 22:00 68 11/07/17 21:00 66 11/07/17 20:00 64 11/07/17 19:00 65 11/07/17 19:00 98.6 65 22 160/71 (100) 99 11/07/17 18:45 98.2 60 18 169/85 (113) 100 11/07/17 18:30 98.5 60 15 177/77 (110) 99 Nasal Cannula 2 11/07/17 18:15 60 14 146/65 (92) 99 Nasal Cannula 2 11/07/17 18:00 58 14 153/69 (97) 99 Nasal Cannula 2 11/07/17 17:45 56 17 143/65 (91) 100 Nasal Cannula 2 11/07/17 17:39 98.5 57 15 162/65 (97) 95 Nasal Cannula 2 Physical Exam GENERAL: male sitting up eating lunch. SKIN: Warm and dry. HEAD: Normocephalic. EYES: No scleral icterus. No injection or drainage. NECK: Supple, trachea midline. No JVD or lymphadenopathy. CARDIOVASCULAR: Regular rate and rhythm without murmurs, gallops, or rubs. RESPIRATORY: Breath sounds equal bilaterally. No accessory muscle use. GASTROINTESTINAL: Abdomen soft, non-tender, nondistended. MUSCULOSKELETAL: Edema. Foot ulcer right foot. BACK: Nontender without obvious deformity. No CVA tenderness. EXT: left AKA, healed; AVF left upper arm, + thrill/bruit, incision approximated s/p surgery, no drainage. Laboratory Laboratory Tests Test 11/08/17 06:17 Blood Urea Nitrogen 68 Creatinine 6.33 Random Glucose 100 Calcium Level 8.6 Sodium Level 136 Potassium Level 4.4 Chloride Level 101 Carbon Dioxide Level 18.2 Anion Gap 17 Estimat Glomerular Filtration Rate 9 (Bouchra Mccurdy) Result Diagram: 11/07/17 1255 11/08/17 0617 Assessment and Plan Problem List: (1) ESRD (end stage renal disease) ICD Codes: N18.6 - End stage renal disease Plan: We will dialyze the patient today High protein diet encouraged Permcath on right for HD use Has mild acidosis, should correct with HD Stable for discharge today after dialysis. Outpatient arrangements in [place]. (2) AVF (arteriovenous fistula) ICD Codes: I77.0 - Arteriovenous fistula, acquired Plan: Successful second step with Dr. Almaguer Can follow outpatient Avoid left arm procedures (3) Diabetes ICD Codes: E11.9 - Type 2 diabetes mellitus without complications Plan: Maintain glucose 140-180 mg/dL while admitted (Bouchra Mccurdy) Assessment and Plan patient was seen and examined during HD. He is to be discharged later today. Initially thought his service desk associate was Dr. Royal, (he could not remember his service desk associate's name), but turns out his service desk associate is Dr. Rdz. (Jimmy Shah MD) Bouchra Mccurdy Nov 08, 2017 13:46 Jimmy Shah MD Nov 08, 2017 15:56
[2017-11-08] MEDS ORDERED: HEPARIN SODIUM - SQ 10,000 UNITS/ML VIAL SQ SCH (17:00)
== END 2017-11-08 20:14 | disposition home or self-care (01) ==
LOC: HSDC 12:12 → HSDI 17:15 → HCPC 18:37
PROVIDERS: ADMIT Surgery; ATTEND Surgery
DX: N18.6 End stage renal disease (principal); I12.0 Hypertensive chronic kidney disease with stage 5 chronic kidney disease or end stage renal disease; I25.10 Atherosclerotic heart disease of native coronary artery without angina pectoris; E11.22 Type 2 diabetes mellitus with diabetic chronic kidney disease; Z79.4 Long term (current) use of insulin; Z79.899 Other long term (current) drug therapy; Z89.611 Acquired absence of right leg above knee; Z49.01 Encounter for fitting and adjustment of extracorporeal dialysis catheter
CPT/HCPCS: 01844; 36819; 80048; 82948; 85025; 85610; 86850; 86900; 86901; 90935; 96372; 96374; 96375; 96376; G0378; J0131; J1580; J1644; J1815; J2270; J2370; J2720; J3010; J3370; J7030; J7040; J7050

== ENCOUNTER 2018-07-13 14:29 | Inpatient (IN) ==
--- NOTE | 2018-07-13 16:00 | ED ---
HPI General Chief Complaint: Respiratory Symptoms Stated Complaint: weakness sob in morning Time Seen by Provider: 07/13/18 15:54 Source: patient and family Mode of arrival: ambulatory Limitations: no limitations History of Present Illness Last dialysis past Saturday MD Complaint: Reports shortness of breath Onset (ago): day(s) Context: Reports recent illness Severity: moderate Consistency/Duration: constant Relieving factors: nothing Exacerbating factors: lying flat and exertion Known history of: Denies DVT Associated symptoms: Reports denies other symptoms; Denies chest pain, fever, lower extremity pain and syncope Treatment prior to arrival: Reports oxygen Related Data Home Medications Medication Instructions Recorded Confirmed bumetanide 2 mg PO BID 06/29/18 07/13/18 labetalol 600 mg PO TID 06/29/18 07/13/18 pantoprazole [Protonix] 40 mg PO DAILY 06/29/18 07/13/18 rosuvastatin [Crestor] 40 mg PO DAILY 06/29/18 07/13/18 sevelamer HCl 1,600 mg PO TID 07/13/18 07/13/18 Allergies Allergy/AdvReac Type Severity Reaction Status Date / Time wool AdvReac Rash, Verified 07/13/18 14:38 Generalized Review of Systems ROS: all other systems reviewed are negative [facility] Medical History Medical History CHF (congestive heart failure) (Acute) GERD (gastroesophageal reflux disease) (Acute) Heart disease (Acute) Mass of left lung (Acute) TIA (transient ischemic attack) (Acute) CVA (cerebral vascular accident) (Acute) Coronary artery disease (Acute) Diabetes (Acute) Dialysis patient (Acute) End stage renal disease on dialysis (Acute) Heart attack (Acute) Hyperlipidemia (Acute) Hypertension (Acute) Surgical History Surgical History Above knee amputation of right lower extremity (Acute) Fistula (Acute) Social History Social History Substance History: No History of Abuse Second Hand Smoke Exposure: No Smoking Status: Former smoker Tobacco Type: Cigarettes Number of Pack-Years (if former smoker): 30 How Often Do You Have a Drink Containing Alcohol: Never Recent Travel in [facility] within the Last 8 Weeks: No Recent Out of Country Travel within the Last 8 Weeks: No Exam Narrative Exam Narrative: NONTOXIC EOMI NO JVD MILD LABORED RESPIRATIONS Fistula left arm REGULAR RHYTHM SOFT NON TENDER PELVIS STABLE FROM EXTREMITIES Nontender Calves FACIAL SYMMETRY STEADY GAIT, CLEAR SENTENCES AAOX3 Course Reevaluation(s) Reevaluation #1: Discussed with Gilbert Zarco MD/[facility] End-stage renal disease with hyperkalemia, troponin likely elevated secondary to with no chest pain No signs of pneumonia or acute airway compromise Scheduled for dialysis in a.m. Time: 17:22 Initial Documented Vital Signs Temperature 98.0 F 07/13/18 14:38 Pulse Rate 78 07/13/18 14:38 Respiratory Rate 16 07/13/18 14:38 Blood Pressure 143/88 H 07/13/18 14:38 Pulse Oximetry 94 L 07/13/18 14:38 Last Documented Vital Signs Temperature 98.0 F 07/13/18 14:38 Pulse Rate 74 07/13/18 17:18 Respiratory Rate 16 07/13/18 17:18 Blood Pressure 140/62 07/13/18 16:30 Pulse Oximetry 97 07/13/18 16:30 Critical Care Time Critical Care Time: Yes Total Critical Care Time: 35 Attestation: Aggregate critical care time was 35 minutes. Time to perform other separately billable procedures was not included in the critical care time. My time did not include minutes spent treating any other patients simultaneously or on activities that did not directly contribute to the patient's treatment. The services I provided to this patient were to treat and/or prevent clinically significant deterioration that could result in: [Pain, disability, ] I provided critical care services requiring my management, as noted below: Chart data review, documentation time, medication orders and management, vital sign assessments/reviewing monitor data, ordering and reviewing lab tests, ordering and interpreting/reviewing x-rays and diagnostic studies, care of the patient and discussion of the patient with the admitting physicians. Medical Decision Making MDM Narrative Medical Screen Exam Complete: Yes Emergency Medical Condition: Yes Lab Data Result diagrams: 07/13/18 16:25 07/13/18 16:25 Lab Results 07/13/18 07/13/18 07/13/18 Range/Units 16:25 16:25 16:25 CBC w Diff Auto diff final WBC 10.6 (4.0-11.0) th/mm3 RBC 3.64 L (4.50-5.90) mil/mm3 Hgb 10.4 L (13.0-17.0) gm/dL Hct 32.3 L (39.0-51.0) % MCV 88.8 (80.0-100.0) fL MCH 28.7 (27.0-34.0) pg MCHC 32.3 (32.0-36.0) % RDW 16.2 (11.6-17.2) % Plt Count 376 D (150-450) th/mm3 MPV 9.3 (7.0-11.0) fL Neut % (Auto) 78.1 H (16.0-70.0) % Lymph % (Auto) 11.4 (9.0-44.0) % Wallace % (Auto) 7.1 (0.0-8.0) % Eos % (Auto) 1.3 (0.0-4.0) % Baso % (Auto) 2.1 H (0.0-2.0) % Neut # (Auto) 8.3 H (1.8-7.7) th/mm3 Lymph # (Auto) 1.2 (1.0-4.8) th/mm3 Wallace # (Auto) 0.8 (0.0-0.9) th/mm3 Eos # (Auto) 0.1 (0.0-0.4) th/mm3 Baso # (Auto) 0.2 (0.0-0.2) th/mm3 WBC Differential . Differential Comment . PT 11.3 (9.8-11.6) sec INR 1.1 Ratio Sodium 136 (136-145) meq/L Potassium 5.5 H (3.5-5.1) meq/L Chloride 103 (98-107) meq/L Carbon Dioxide 23.0 (21.0-32.0) meq/L Anion Gap 10 (5-15) meq/L BUN 53 H (7-18) mg/dL Creatinine 6.80 H (0.60-1.30) mg/dL Estimated GFR 8 L (>89) mL/min Random Glucose 143 H (74-106) mg/dL Calcium 9.2 (8.5-10.1) mg/dL Total Bilirubin 0.6 (0.2-1.0) mg/dL AST 10 L (15-37) U/L ALT 11 L (12-78) U/L Alkaline Phosphatase 260 H (45-117) U/L Troponin I 0.12 H (0.02-0.05) ng/mL B-Natriuretic Peptide (0-100) pg/mL Total Protein 7.6 (6.4-8.2) g/dL Albumin 3.0 L (3.4-5.0) g/dL 07/13/18 Range/Units 16:25 CBC w Diff WBC (4.0-11.0) th/mm3 RBC (4.50-5.90) mil/mm3 Hgb (13.0-17.0) gm/dL Hct (39.0-51.0) % MCV (80.0-100.0) fL MCH (27.0-34.0) pg MCHC (32.0-36.0) % RDW (11.6-17.2) % Plt Count (150-450) th/mm3 MPV (7.0-11.0) fL Neut % (Auto) (16.0-70.0) % Lymph % (Auto) (9.0-44.0) % Wallace % (Auto) (0.0-8.0) % Eos % (Auto) (0.0-4.0) % Baso % (Auto) (0.0-2.0) % Neut # (Auto) (1.8-7.7) th/mm3 Lymph # (Auto) (1.0-4.8) th/mm3 Wallace # (Auto) (0.0-0.9) th/mm3 Eos # (Auto) (0.0-0.4) th/mm3 Baso # (Auto) (0.0-0.2) th/mm3 WBC Differential Differential Comment PT (9.8-11.6) sec INR Ratio Sodium (136-145) meq/L Potassium (3.5-5.1) meq/L Chloride (98-107) meq/L Carbon Dioxide (21.0-32.0) meq/L Anion Gap (5-15) meq/L BUN (7-18) mg/dL Creatinine (0.60-1.30) mg/dL Estimated GFR (>89) mL/min Random Glucose (74-106) mg/dL Calcium (8.5-10.1) mg/dL Total Bilirubin (0.2-1.0) mg/dL AST (15-37) U/L ALT (12-78) U/L Alkaline Phosphatase (45-117) U/L Troponin I (0.02-0.05) ng/mL B-Natriuretic Peptide 4779 H (0-100) pg/mL Total Protein (6.4-8.2) g/dL Albumin (3.4-5.0) g/dL Imaging Data Radiologist's impression: Chest X-Ray 07/13/18 15:57 CONCLUSION: Development of a mild pulmonary edema pattern. Small bilateral pleural effusions with dense opacity lower left lung, probably chronic atelectasis when correlated with prior CT from June 29. ECG Data Attestation: I personally reviewed and interpreted this ECG as follows: (Sinus 77, no STEMI, LVH) Discharge Plan Discharge Disposition Patient Disposition: ED Admit(ED Internal Use Only) Discharge Condition Condition: Stable Discharge Order Discharge Orders: ED Use Only Admit Order (Routine); Ordered 07/13/18 Ordered By: Jerson Burroughs Discharge Details Diagnosis: End stage renal disease on dialysis, Hyperkalemia Physicians Team ED Provider: Jerson Burroughs Attending Provider: Harsha Zarco Other Providers: Awa Vela Status ED Status: Admitted Observation Patient
--- NOTE | 2018-07-13 16:30 | XR ---
EXAM DATE: 07/13/2018 4:22 PM EST AGE/SEX: 68 years / Male INDICATIONS: CHF. Possible fluid in left lung. Thoracentesis 12 days ago. CLINICAL DATA: This is the patient's initial encounter. Patient reports that signs and symptoms have been present for 4 - 6 days and indicates a pain score of 0/10. MEDICAL/SURGICAL HISTORY: . Cardiovascular disease. Diabetes mellitus type II. . Left sided th oracentesis. COMPARISON: [facility], CHEST 2V PA&LAT, 06/29/2018. . FINDINGS: There is a mild edema pattern which has developed since June 29 chest radiograph. Dense atelectasi s noted left lung base. Small bilateral pleural effusions. Cardiomegaly. CONCLUSION: Development of a mild pulmonary edema pattern. Small bilateral pleural effusions with dense opacity l ower left lung, probably chronic atelectasis when correlated with prior CT from June 29. Electronically signed by: Jerson Thomson MD Board Certified Radiologist 07/13/2018 4:29 PM EST
[2018-07-13 16:42] LABS: Baso # (Auto) 0.2 th/mm3 (0.0-0.2); Baso % (Auto) 2.1 % (0.0-2.0); Eos # (Auto) 0.1 th/mm3 (0.0-0.4); Eos % (Auto) 1.3 % (0.0-4.0); Hematocrit 32.3 % (39.0-51.0); Hemoglobin 10.4 gm/dL (13.0-17.0); Lymph # (Auto) 1.2 th/mm3 (1.0-4.8); Lymph % (Auto) 11.4 % (9.0-44.0); Mean Corpuscular HGB Conc 32.3 % (32.0-36.0); Mean Corpuscular Hemoglobin 28.7 pg (27.0-34.0); Mean Corpuscular Volume 88.8 fL (80.0-100.0); Mean Platelet Volume 9.3 fL (7.0-11.0); Mono # (Auto) 0.8 th/mm3 (0.0-0.9); Mono % (Auto) 7.1 % (0.0-8.0); Neut # (Auto) 8.3 th/mm3 (1.8-7.7); Neut % (Auto) 78.1 % (16.0-70.0); Platelet Count 376 th/mm3 (150-450); Red Blood Count 3.64 mil/mm3 (4.50-5.90); Red Cell Distribution Width 16.2 % (11.6-17.2); White Blood Count 10.6 th/mm3 (4.0-11.0)
[2018-07-13 16:47] LABS: Chloride 103 meq/L (98-107); Potassium 5.5 meq/L (3.5-5.1); Sodium 136 meq/L (136-145)
[2018-07-13 16:50] LABS: Calcium 9.2 mg/dL (8.5-10.1)
[2018-07-13 16:51] LABS: Anion Gap 10 meq/L (5-15); Blood Urea Nitrogen 53 mg/dL (7-18); Glucose,Random 143 mg/dL (74-106); INR 1.1 Ratio; Prothrombin Time 11.3 sec (9.8-11.6)
[2018-07-13 16:54] LABS: Alanine Aminotransferase 11 U/L (12-78); Aspartate Aminotransferase 10 U/L (15-37); Glomerular Filtration Rate 8 mL/min (>89)
[2018-07-13 16:56] LABS: Total Protein 7.6 g/dL (6.4-8.2)
[2018-07-13 16:57] LABS: Alkaline Phosphatase 260 U/L (45-117)
[2018-07-13 16:59] LABS: Troponin I 0.12 ng/mL (0.02-0.05)
[2018-07-13] MEDS ORDERED: Sodium Polystyrene Sulfonate/Sorbitol Liq 15 GM/60 ML UDC PO ONE (17:07)
[2018-07-13] MEDS ORDERED: Acetaminophen 325 MG Tablet PO PRN (18:00)
--- NOTE | 2018-07-13 18:45 | P.HPIM ---
History of Present Illness Primary Care Physician: POONAM ORTIZ Chief Complaint: Shortness of breath History of Present Illness: 68-year-old male who is known to me from previous admission 2 weeks ago. Patient does have known history of hypertension, hyperlipidemia, diabetes, CVA, myocardial infarction, end-stage renal disease who is on dialysis on Mondays,. Patient presented again to the hospital with shortness of breath, dyspnea, orthopnea. Workup indicating fluid overload. Patient indicates that he has been going to dialysis on a regular basis. He has not skipped any sessions. He states that the only difference between the last time he was here and this time was the fact that he is making less urine than he did before. Chest x-ray again does show pulmonary edema with small bilateral pleural effusions with dense opacity in the left lower lung this correlated with previous CT scan. ER physician did do further workup with mildly elevated troponin level. This is likely secondary to patient's chronic kidney disease. Patient denies any chest pain. Review of EKGs do not indicate any acute abnormality or changes Review of Systems Review of Systems: all other systems reviewed are negative Respiratory: Reports dyspnea and Reports dyspnea on exertion [facility] Medical History Medical History CHF (congestive heart failure) (Acute) GERD (gastroesophageal reflux disease) (Acute) Heart disease (Acute) Mass of left lung (Acute) TIA (transient ischemic attack) (Acute) CVA (cerebral vascular accident) (Acute) Coronary artery disease (Acute) Diabetes (Acute) Dialysis patient (Acute) End stage renal disease on dialysis (Acute) Heart attack (Acute) Hyperlipidemia (Acute) Hypertension (Acute) Surgical History Surgical History Above knee amputation of right lower extremity (Acute) Fistula (Acute) Family History Family History Mother Family history of diabetes mellitus Brother Family history of heart disease Uncle Family history of heart disease Social History Social History Substance History: No History of Abuse Second Hand Smoke Exposure: No Smoking Status: Former smoker Tobacco Type: Cigarettes Number of Pack-Years (if former smoker): 30 How Often Do You Have a Drink Containing Alcohol: Never Recent Travel in [facility] within the Last 8 Weeks: No Recent Out of Country Travel within the Last 8 Weeks: No Immunization History Tetanus Immunization: >5 Years Medications and Allergies Allergies Allergy/AdvReac Type Severity Reaction Status Date / Time wool AdvReac Rash, Verified 07/13/18 14:38 Generalized Home Medications Medication Instructions Recorded Confirmed Type bumetanide 2 mg PO BID 06/29/18 07/13/18 History labetalol 600 mg PO TID 06/29/18 07/13/18 History pantoprazole [Protonix] 40 mg PO DAILY 06/29/18 07/13/18 History rosuvastatin [Crestor] 40 mg PO DAILY 06/29/18 07/13/18 History sevelamer HCl 1,600 mg PO TID 07/13/18 07/13/18 History Active Medications: Active Medications Acetaminophen (Tylenol) 650 mg PO Q4H PRN PRN Reason: Temp > 100.4 Al Hydroxide/Mg Hydroxide (Milk Of [place] Liq) 30 ml PO Q12H PRN PRN Reason: Mild Constipation Bumetanide (Bumex) 2 mg PO BID IAN Labetalol HCl (Trandate) 600 mg PO TID IAN Non-Formulary Medication (Rosuvastatin) 40 mg PO DAILY IAN Ondansetron HCl (Zofran Inj) 4 mg IV.PUSH Q6H PRN PRN Reason: NAUSEA OR VOMITING Pantoprazole Sodium (Protonix) 40 mg PO DAILY IAN Sevelamer Carbonate (Renvela) 1,600 mg PO TID IAN Sodium Chloride (Ns Flush) 2 ml IV.FLUSH BID IAN Sodium Chloride (Ns Flush) 2 ml IV.FLUSH PRN PRN PRN Reason: FLUSH AFTER USING IV ACCESS Physical Exam Vital signs: Vital Signs 07/13/18 14:38 07/13/18 16:03 07/13/18 16:08 Temperature 98.0 F Pulse Rate 78 80 Respiratory Rate 16 Blood Pressure 143/88 H Pulse Oximetry 94 L 98 98 07/13/18 16:30 07/13/18 17:18 Temperature Pulse Rate 74 74 Respiratory Rate 16 16 Blood Pressure 140/62 Pulse Oximetry 97 Intake & Output 07/12/18 07/13/18 07/13/18 18:59 06:59 18:59 Weight 80.6 kg Narrative: GENERAL: Well-developed, well-nourished, in no acute distress. alert and orientated HEENT: Head is normocephalic without any lesions or masses noted. Facial features are symmetric. Eyes: Pupils equal round reactive to light. Extraocular muscles are intact. Conjunctivae were clear. Oropharyngeal: Pharynx without any erythema edema. Tongue is midline without deviation. Buccal mucosa is moist without any masses or lesions NECK: Supple without any masses. Trachea midline no deviation. No JVD, no bruits are appreciated CARDIAC: Regular rhythm, regular rate. S1/S2 are heard. 2/6 ejection murmur, no gallops or rubs. LUNGS: Diminished breath sounds noted bilaterally no wheeze, rhonchi or rales. No use of accessory muscles on inspiration or expiration. ABDOMEN: Soft, nontender. Nondistended. Bowel sounds heard in all 4 quadrants. No organomegaly or masses. Negative rebound, negative guarding EXTREMITIES: No edema,. No cyanosis or clubbing, AV fistula in the left upper extremity. Right [id number] amputation NEUROLOGY: Mood and affect appear appropriate. Cranial nerves II through XII grossly intact. Moving all extremities, speech is clear Results Labs CBC & Chem 7: 07/13/18 16:25 07/13/18 16:25 Imaging Impressions Chest X-Ray 07/13/18 15:57 CONCLUSION: Development of a mild pulmonary edema pattern. Small bilateral pleural effusions with dense opacity lower left lung, probably chronic atelectasis when correlated with prior CT from June 29. Caprini VTE Risk Assessment Caprini VTE Risk Assessment: Moderate/High Risk (score >= 2) Caprini Risk Assessment Model: Point Value = 1 Point Value = 2 Point Value = 3 Point Value = 5 Age 41-60 Minor surgery BMI > 25 kg/m2 Swollen legs Varicose veins or History of unexplained or recurrent spontaneous Oral contraceptives or hormone replacement Sepsis (< 1 month) Serious lung disease, including pneumonia (< 1 month) Abnormal pulmonary function Acute myocardial infarction Congestive heart failure (< 1 month) History of inflammatory bowel disease Medical patient at bed rest Age 61-74 Arthroscopic surgery Major open surgery (> 45 min) Laparoscopic surgery (> 45 min) Malignancy Confined to bed (> 72 hours) Immobilizing plaster cast Central venous access Age >= 75 History of VTE Family history of VTE Factor V Leiden Prothrombin [id number] Lupus anticoagulant Anticardiolipin antibodies Elevated serum homocysteine Heparin-induced thrombocytopenia Other congenital or acquired thrombophilia Stroke (< 1 month) Elective arthroplasty Hip, pelvis, or leg fracture Acute spinal cord injury (< 1 month) Prophylaxis Regimen: Total Risk Factor Score Risk Level Prophylaxis Regimen 0-1 Low Early ambulation 2 Moderate Order ONE of the following: *Sequential Compression Device (SCD) *Heparin 5000 units SQ BID 3-4 Higher Order ONE of the following medications: *Heparin 5000 units SQ TID *Enoxaparin/Lovenox 40 mg SQ daily (WT < 150 kg, CrCl > 30 mL/min) *Enoxaparin/Lovenox 30 mg SQ daily (WT < 150 kg, CrCl > 10-29 mL/min) *Enoxaparin/Lovenox 30 mg SQ BID (WT < 150 kg, CrCl > 30 mL/min) AND/OR *Sequential Compression Device (SCD) 5 or more Highest Order ONE of the following medications: *Heparin 5000 units SQ TID (Preferred with Epidurals) *Enoxaparin/Lovenox 40 mg SQ daily (WT < 150 kg, CrCl > 30 mL/min) *Enoxaparin/Lovenox 30 mg SQ daily (WT < 150 kg, CrCl > 10-29 mL/min) *Enoxaparin/Lovenox 30 mg SQ BID (WT < 150 kg, CrCl > 30 mL/min) AND *Sequential Compression Device (SCD) Assessment and Plan Plan End-stage renal disease on dialysis Patient presenting with fluid overload with symptoms of orthopnea, dyspnea Patient with associated hyperkalemia Patient indicates that he has had decreased amount of urinary output since his last admission Nephrology consulted for dialysis Hypertension, hyper lipidemia, coronary artery disease Patient did present with equivocal troponin elevation, likely secondary to end- stage renal disease Patient is asymptomatic without any chest pain, nausea, vomiting, diaphoresis We will repeat cardiac enzymes in the morning to rule out any acute coronary event I personally reviewed patient's EKGs and there have been no significant changes since May 2017 Continue home medications Diabetes Accu-Cheks with sliding scale insulin DVT prevention Subcutaneous heparin Discussed Condition With: Patient, family at bedside, nursing staff, Dr. Zarco
[2018-07-13] MEDS ORDERED: Dextrose 50% in Water 50 ML Vial IV.PUSH PRN (18:46)
[2018-07-13] MEDS: Heparin - SQ 10,000 UNITS/ML Vial SQ SCH (21:15)
[2018-07-13] MEDS: Insulin NovoLOG Aspart Correctional Sugar Inj SQ SCH (21:20)
--- NOTE | 2018-07-14 09:32 | P.PNIM ---
Subjective Interval history: 68-year-old male who is seen examined today for fluid overload secondary to end-stage renal disease with decreased urinary output. Patient states that he still having some difficult he breathing. Cannot lay flat again last night. Awaiting dialysis. Vital signs are stable. Patient remains afebrile. Physical Exam Vital signs: Vital Signs 07/13/18 14:38 07/13/18 16:00 07/13/18 16:03 Temperature 98.0 F Pulse Rate 78 80 Respiratory Rate 16 Blood Pressure 143/88 H Pulse Oximetry 94 L 98 98 07/13/18 16:08 07/13/18 16:30 07/13/18 17:18 Temperature Pulse Rate 74 74 Respiratory Rate 16 16 Blood Pressure 140/62 Pulse Oximetry 98 97 07/13/18 17:30 07/13/18 18:00 07/13/18 18:35 Temperature Pulse Rate 82 90 80 Respiratory Rate 16 16 Blood Pressure 145/64 H 159/93 H Pulse Oximetry 97 97 07/13/18 20:00 07/13/18 20:14 07/13/18 22:35 Temperature 97.5 F L Pulse Rate 90 77 78 Respiratory Rate 18 16 Blood Pressure 144/66 H 154/82 H Pulse Oximetry 92 L 96 07/14/18 00:00 07/14/18 02:26 07/14/18 02:27 Temperature 97.7 F Pulse Rate 79 84 Respiratory Rate 18 20 Blood Pressure 138/63 Pulse Oximetry 97 94 L 07/14/18 04:00 07/14/18 08:00 Temperature 96.5 F L 96.7 F L Pulse Rate 82 75 Respiratory Rate 18 18 Blood Pressure 171/77 H 135/65 Pulse Oximetry 97 98 Intake & Output 07/13/18 07/14/18 07/14/18 18:59 06:59 18:59 Intake Total 200 / 200 Balance 200 / 200 Weight 80.6 kg 82.6 kg Intake: Oral Supplement 200 / 200 Other: # Voids 2 Date of Last Bowel Movement 07/13/18 # Bowel Movements 1 Weight On Admission 82.6 kg Narrative: GENERAL: Well-developed, well-nourished, in no acute distress. alert and orientated HEENT: Head is normocephalic without any lesions or masses noted. Facial features are symmetric. Eyes: Extraocular muscles are intact. Conjunctivae were clear. NECK: Supple without any masses. Trachea midline no deviation. No JVD, CARDIAC: Regular rhythm, regular rate. S1/S2 are heard. 2/6 ejection murmur, no gallops or rubs. LUNGS: Diminished breath sounds noted bilaterally no wheeze, rhonchi or rales. No use of accessory muscles on inspiration or expiration. ABDOMEN: Soft, nontender. Nondistended. Bowel sounds heard in all 4 quadrants. No organomegaly or masses. Negative rebound, negative guarding EXTREMITIES: No edema,. No cyanosis or clubbing, AV fistula in the left upper extremity. Right [id number] amputation NEUROLOGY: Mood and affect appear appropriate. Cranial nerves II through XII grossly intact. Moving all extremities, speech is clear Results Labs CBC & Chem 7: 07/13/18 16:25 07/13/18 16:25 Imaging Imaging: Impressions Chest X-Ray 07/13/18 15:57 CONCLUSION: Development of a mild pulmonary edema pattern. Small bilateral pleural effusions with dense opacity lower left lung, probably chronic atelectasis when correlated with prior CT from June 29. Assessment and Plan Plan End-stage renal disease on dialysis Patient still with fluid overload and symptoms of orthopnea, dyspnea Patient with associated hyperkalemia Status post Kayexalate Patient indicates that he has had decreased amount of urinary output since his last admission, and no significant output last night Nephrology consulted for dialysis Nursing staff indicates that dialysis will be done until later this afternoon Hypertension, hyper lipidemia, coronary artery disease Patient did present with equivocal troponin elevation, likely secondary to end- stage renal disease Patient is asymptomatic without any chest pain, nausea, vomiting, diaphoresis Awaiting repeat cardiac enzymes to rule out acute coronary event I personally reviewed patient's EKGs and there have been no significant changes since May 2017 Continue home medications Diabetes Accu-Cheks with sliding scale insulin DVT prevention Subcutaneous heparin Discussed Condition With: Patient, family at bedside, nursing staff, Dr. Zarco Progress Note: Quality VTE Deep Vein Thrombosis/Pulmonary Embolism Present on Admission: No
[2018-07-14] MEDS: Labetalol 200 MG Tablet PO SCH ×4 (10:16→17:08)
[2018-07-14] MEDS: Insulin NovoLOG Aspart Correctional Sugar Inj SQ SCH ×4 (10:22→21:01)
[2018-07-14] MEDS: Heparin - SQ 10,000 UNITS/ML Vial SQ SCH ×2 (10:22→21:00)
[2018-07-14] MEDS ORDERED: Gelatin 12 MM/7 MM Topical Foam TOPICAL PRN (12:40)
[2018-07-14] MEDS ORDERED: Albumin Human 25% Inj 100 ML IV.SIG PRN (12:40)
[2018-07-14] MEDS ORDERED: Heparin 10,000 UNITS/10 ML Vial (for IV use) OTHER PRN ×2 (12:40)
[2018-07-14] MEDS ORDERED: Sod Chloride 0.9% Inj 1,000 ML IV.CONT PRN (12:40)
[2018-07-14] MEDS ORDERED: Acetaminophen 325 MG Tablet PO PRN (12:40)
[2018-07-14] MEDS ORDERED: Sod Chloride 0.9% Inj 1,000 ML OTHER PRN ×2 (12:40)
--- NOTE | 2018-07-14 15:51 | P.CONNP ---
<Liv Guo - Last Filed: 07/14/18 15:11> History of Present Illness Service: nephrology Consult date: 07/14/18 Requesting Physician: Harsha Zarco Reason for Consult: ESRD, fluid overload, dialysis pt. Primary Care Provider: POONAM ORTIZ Chief Complaint: Shortness of breath History of Present Illness: Patient is a 67-year-old white male who presented yesterday with complaints of shortness of breath that is worsened with laying flat. Associated productive cough with clear sputum. He has a medical history of ESRD, diabetes and hypertension, peripheral vascular disease right below-knee amputation goes on dialysis on Saturday, Saturday and Saturday. He was admitted 2 weeks ago regarding the same complaints. At that time he was treated for pneumonia, and completed his antibiotics as perscribed. Status post left thoracentesis on July 01. He denies any fever. Denies any chest pain. Denies any palpitations. Over the last 4-5 days he admits that his urine output has decreased. Denies any dysuria. He admits to being compliant with his hemodialysis therapy on Saturday at [facility]. He follows a strict fluid restriction of 32 ounces a day Saturday through Saturday, 16 ounces Saturday and Saturday. Also compliant with low-sodium diet. Chest x-ray revealed development of a mild pulmonary edema pattern. Small bilateral pleural effusions with dense opacity lower left lung, probably chronic atelectasis when correlated with prior CT from June 29. BNP of 4779. Troponin 0.12. BUN 53. DRIER TENDER NAPHTHALENE at 6.8. Potassium at 5.5. June 09, 2018 echocardiogram revealed an EF of 50-55% Review of Systems Respiratory: Reports cough, Reports shortness of breath Genitourinary: Reports decreased urination PMFSH - History History Provided By: Patient, Family Member - Medical History Medical History: Medical History (Last Reviewed 07/14/18 @ 15:24 by Liv Guo APRN) CHF (congestive heart failure) GERD (gastroesophageal reflux disease) Heart disease Mass of left lung TIA (transient ischemic attack) CVA (cerebral vascular accident) Coronary artery disease Diabetes Dialysis patient End stage renal disease on dialysis Heart attack Hyperlipidemia Hypertension - Surgical History Surgical History: Surgical History (Last Reviewed 07/14/18 @ 15:24 by Liv Guo APRN) Above knee amputation of right lower extremity Fistula - Family History Family History: Family History (Last Reviewed 07/13/18 @ 18:37 by LIZBETH Middleton) Mother Family history of diabetes mellitus Brother Family history of heart disease Uncle Family history of heart disease - Social History I have reviewed the patient's Social History: Yes - Tobacco History Second Hand Smoke Exposure: No Tobacco Use In Past 30 Days: No Smoking Status: Never smoker Tobacco Type: Cigarettes Number of Pack Years (if former smoker): 30 - Alcohol History How Often Do You Have a Drink Containing Alcohol: Never - Substance Use History Substance History: No History of Abuse - Travel History Recent Travel in the [place] Within the Last 8 Weeks: No Recent Travel Out of the Country Within the Last 8 Weeks: No - Immunization History Tetanus Immunization: >5 Years Medications and Allergies Allergies Allergy/AdvReac Type Severity Reaction Status Date / Time wool AdvReac Rash, Verified 07/13/18 14:38 Generalized Home Medications Medication Instructions Recorded Confirmed Type bumetanide 2 mg PO BID 06/29/18 07/13/18 History labetalol 600 mg PO TID 06/29/18 07/13/18 History pantoprazole [Protonix] 40 mg PO DAILY 06/29/18 07/13/18 History rosuvastatin [Crestor] 40 mg PO DAILY 06/29/18 07/13/18 History sevelamer HCl 1,600 mg PO TID 07/13/18 07/13/18 History Active Medications: Active Medications Acetaminophen (Tylenol) 650 mg PO Q4H PRN PRN Reason: Temp > 100.4 Acetaminophen (Tylenol) 650 mg PO UNSCH PRN PRN Reason: SEE LABEL COMMENTS Al Hydroxide/Mg Hydroxide (Milk Of Ced Nuñez) 30 ml PO Q12H PRN PRN Reason: Mild Constipation Albuterol (Duoneb Neb (Prn)) 1 ampul NEB Q4HR NEB PRN PRN Reason: sob Last Admin: 07/14/18 02:23 Dose: 1 ampul Atorvastatin Calcium (Lipitor) 80 mg PO DAILY [facility] Last Admin: 07/14/18 10:15 Dose: 80 mg Bumetanide (Bumex) 2 mg PO BID [facility] Last Admin: 07/14/18 10:14 Dose: 2 mg Clonidine HCl (Catapres) 0.1 mg PO UNSCH PRN PRN Reason: SEE LABEL COMMENTS Dextrose (D50w Vial) 50 ml IV.PUSH UNSCH PRN PRN Reason: PER HYPOGLYCEMIA PROTOCOL Diphenhydramine HCl (Benadryl) 25 mg PO UNSCH PRN PRN Reason: SEE LABEL COMMENTS Epoetin Gianni (Epogen Inj) 4,000 unit IV.PUSH UNSCH PRN PRN Reason: SEE LABEL COMMENTS Gelatin (Gelfoam 12 Mm/7 Mm Topical) 1 foam TOPICAL PRN PRN PRN Reason: help stop bleeding from site Gentamicin Sulfate (Gentamicin Inj) 20 mg OTHER WITH DIALYSIS PRN PRN Reason: Dwell Gentamycin Lock Glucagon (Glucagon Inj) 1 mg OTHER PRN PRN PRN Reason: for Hypoglycemia Protocol Heparin Sodium (Porcine) (Heparin Inj) 5,000 units SQ Q12HR [facility] Last Admin: 07/14/18 10:22 Dose: 5,000 units Heparin Sodium (Porcine) (Heparin Inj) 8,000 units OTHER WITH DIALYSIS PRN PRN Reason: for machine prime Heparin Sodium (Porcine) (Heparin Inj) 1,000 units OTHER WITH DIALYSIS PRN PRN Reason: Dwell Heparin to Fill Catheter Albumin Human (Flexbumin 25% Inj) 100 mls @ 60 mls/hr IV.SIG WITH DIALYSIS PRN PRN Reason: hypotension / volume replace Sodium Chloride (Ns Inj) 1,000 mls @ 0 mls/hr OTHER .Q0M PRN PRN Reason: for prime and rinse back Sodium Chloride (Ns Inj) 1,000 mls @ 200 mls/hr OTHER .Q5H PRN PRN Reason: for dialyzer flush PRN Sodium Chloride (Ns Inj) 1,000 mls @ 0 mls/hr IV.CONT .Q0M PRN PRN Reason: hypotension / volume replace Insulin Aspart (Novolog Insulin Correctional Sugar Inj) 0 unit SQ ACHS IAN; Protocol Last Admin: 07/14/18 11:49 Dose: 5 unit Labetalol HCl (Trandate) 600 mg PO TID [facility] Last Admin: 07/14/18 12:27 Dose: Not Given Mannitol (Mannitol Inj) 12.5 gm IV.PUSH UNSCH PRN PRN Reason: hypotension / volume replace Nitroglycerin (Nitrostat Sl) 0.4 mg SL Q5M PRN PRN Reason: CHEST PAIN Ondansetron HCl (Zofran Inj) 4 mg IV.PUSH Q6H PRN PRN Reason: NAUSEA OR VOMITING Ondansetron HCl (Zofran Inj) 4 mg IV.PUSH UNSCH PRN PRN Reason: NAUSEA OR VOMITING Pantoprazole Sodium (Protonix) 40 mg PO DAILY [facility] Last Admin: 07/14/18 10:14 Dose: 40 mg Sevelamer Carbonate (Renvela) 1,600 mg PO TID [facility] Last Admin: 07/14/18 12:27 Dose: Not Given Sodium Chloride (Ns Flush) 2 ml IV.FLUSH BID [facility] Last Admin: 07/14/18 10:16 Dose: 2 ml Sodium Chloride (Ns Flush) 2 ml IV.FLUSH PRN PRN PRN Reason: FLUSH AFTER USING IV ACCESS Sodium Chloride (Ns Flush) 5 ml IV.FLUSH PRN PRN PRN Reason: flush each lumen during HD Exam Vital signs: Vital Signs 07/13/18 16:00 07/13/18 16:03 07/13/18 16:08 Temperature Pulse Rate 80 Respiratory Rate Blood Pressure Pulse Oximetry 98 98 98 07/13/18 16:30 07/13/18 17:18 07/13/18 17:30 Temperature Pulse Rate 74 74 82 Respiratory Rate 16 16 16 Blood Pressure 140/62 145/64 H Pulse Oximetry 97 97 07/13/18 18:00 07/13/18 18:35 07/13/18 20:00 Temperature 97.5 F L Pulse Rate 90 80 90 Respiratory Rate 16 18 Blood Pressure 159/93 H 144/66 H Pulse Oximetry 97 92 L 07/13/18 20:14 07/13/18 22:35 07/14/18 00:00 Temperature 97.7 F Pulse Rate 77 78 79 Respiratory Rate 16 18 Blood Pressure 154/82 H 138/63 Pulse Oximetry 96 97 07/14/18 02:26 07/14/18 02:27 07/14/18 04:00 Temperature 96.5 F L Pulse Rate 84 82 Respiratory Rate 20 18 Blood Pressure 171/77 H Pulse Oximetry 94 L 97 07/14/18 08:00 07/14/18 10:05 07/14/18 11:53 Temperature 96.7 F L 96.7 F L Pulse Rate 74 77 Respiratory Rate 18 18 Blood Pressure 135/65 159/70 H Pulse Oximetry 98 98 96 07/14/18 12:00 07/14/18 13:36 Temperature Pulse Rate 80 Respiratory Rate Blood Pressure Pulse Oximetry 96 Intake & Output 07/13/18 07/14/18 07/14/18 18:59 06:59 18:59 Intake Total 200 / 200 Balance 200 / 200 Weight 80.6 kg 82.6 kg Intake: Oral Supplement 200 / 200 Other: # Voids 2 Date of Last Bowel Movement 07/13/18 07/14/18 # Bowel Movements 1 Weight On Admission 82.6 kg Narrative: GENERAL: Appears to be in no acute distress. Resting comfortably. SKIN: Warm and dry, intact, No lesions seen. HEAD: Normocephalic. EYES: No scleral icterus. No injection or drainage. Pupils are equal and reactive to light. NECK: Supple, trachea midline. No JVD or lymphadenopathy. CARDIOVASCULAR: Regular rate and rhythm 2-3/6 aortic murmur heard, no gallops, or rubs. Left upper extremity AV fistula with positive bruit and thrill. RESPIRATORY: Breath sounds equal bilaterally. No accessory muscle use. Breath sounds with fine crackles to bilateral bases. Nasal cannula. GASTROINTESTINAL: Abdomen soft, non-tender, nondistended. Positive BS in all 4 quadrants. BACK: Nontender without obvious deformity. No CVA tenderness. Results - Lab Results 07/13/18 16:25 07/13/18 16:25 Chest X-Ray 07/13/18 15:57 CONCLUSION: Development of a mild pulmonary edema pattern. Small bilateral pleural effusions with dense opacity lower left lung, probably chronic atelectasis when correlated with prior CT from June 29. Most recent lab results Calcium 9.2 mg/dL (8.5-10.1) 07/13/18 16:25 Assessment and Plan - Assessment (1) End stage renal disease on dialysis Code(s): N18.6 - End stage renal disease; Z99.2 - Dependence on renal dialysis Status: Acute Plan: Presented with shortness of breath, worse with laying flat Chest x-ray revealed mild pulmonary edema Previously admitted with same symptoms, treated for pneumonia. Left Thoracentesis completed July 01. Compliant with hemodialysis Saturday schedule. Follows a strict fluid restriction plan, sodium restriction, compliant. Blood pressure has been controlled at home. Mean systolic in the 140s. Mean diastolic 70s-80s. Echocardiogram with an EF of 50-55%. Elevated BNP. He does notice to have a decrease in urinary output over the last 4-5 days. Diastolic heart failure contributing? -Continue with current dialysis schedule, pending for today -Follow BMP in a.m. -Continue Bumex 2 mg twice a day for now on nondialysis days -Renal US (2) Hyperkalemia Code(s): E87.5 - Hyperkalemia Status: Acute (3) Hypertension Code(s): I10 - Essential (primary) hypertension Status: Acute Plan: Continue labetalol 600 mg 3 times daily On Bumex 2 mg twice daily, nondialysis days -Continue to monitor (4) Diabetes Code(s): E11.9 - Type 2 diabetes mellitus without complications Status: Acute Plan: Blood sugar a bit elevated this afternoon, 288 Goal glucose readings between 140-180 -Continue sliding scale per policy - Plan Potassium yesterday evening at 5.5 -Kayexalate administered last night -Follow BMP -Hemodialysis scheduled for today <Vince Rdz - Last Filed: 07/14/18 17:01> History of Present Illness Primary Care Provider: POONAM ORTIZ [facility] - Medical History Medical History: Medical History (Last Reviewed 07/14/18 @ 15:24 by Liv Guo APRN) CHF (congestive heart failure) GERD (gastroesophageal reflux disease) Heart disease Mass of left lung TIA (transient ischemic attack) CVA (cerebral vascular accident) Coronary artery disease Diabetes Dialysis patient End stage renal disease on dialysis Heart attack Hyperlipidemia Hypertension - Surgical History Surgical History: Surgical History (Last Reviewed 07/14/18 @ 15:24 by Liv Guo APRN) Above knee amputation of right lower extremity Fistula - Family History Family History: Family History (Last Reviewed 07/13/18 @ 18:37 by LIZBETH Middleton) Mother Family history of diabetes mellitus Brother Family history of heart disease Uncle Family history of heart disease Medications and Allergies Active Medications: Active Medications Acetaminophen (Tylenol) 650 mg PO Q4H PRN PRN Reason: Temp > 100.4 Acetaminophen (Tylenol) 650 mg PO UNSCH PRN PRN Reason: SEE LABEL COMMENTS Al Hydroxide/Mg Hydroxide (Milk Of Magnesia Liq) 30 ml PO Q12H PRN PRN Reason: Mild Constipation Albuterol (Duoneb Neb (Prn)) 1 ampul NEB Q4HR NEB PRN PRN Reason: sob Last Admin: 07/14/18 02:23 Dose: 1 ampul Atorvastatin Calcium (Lipitor) 80 mg PO DAILY [facility] Last Admin: 07/14/18 10:15 Dose: 80 mg Bumetanide (Bumex) 2 mg PO SuTuThSa IAN Bumetanide (Bumex) 2 mg PO SuTuThSa IAN Clonidine HCl (Catapres) 0.1 mg PO UNSCH PRN PRN Reason: SEE LABEL COMMENTS Dextrose (D50w Vial) 50 ml IV.PUSH UNSCH PRN PRN Reason: PER HYPOGLYCEMIA PROTOCOL Diphenhydramine HCl (Benadryl) 25 mg PO UNSCH PRN PRN Reason: SEE LABEL COMMENTS Epoetin Gianni (Epogen Inj) 4,000 unit IV.PUSH UNSCH PRN PRN Reason: SEE LABEL COMMENTS Gelatin (Gelfoam 12 Mm/7 Mm Topical) 1 foam TOPICAL PRN PRN PRN Reason: help stop bleeding from site Gentamicin Sulfate (Gentamicin Inj) 20 mg OTHER WITH DIALYSIS PRN PRN Reason: Dwell Gentamycin Lock Glucagon (Glucagon Inj) 1 mg OTHER PRN PRN PRN Reason: for Hypoglycemia Protocol Heparin Sodium (Porcine) (Heparin Inj) 5,000 units SQ Q12HR [facility] Last Admin: 07/14/18 10:22 Dose: 5,000 units Heparin Sodium (Porcine) (Heparin Inj) 8,000 units OTHER WITH DIALYSIS PRN PRN Reason: for machine prime Heparin Sodium (Porcine) (Heparin Inj) 1,000 units OTHER WITH DIALYSIS PRN PRN Reason: Dwell Heparin to Fill Catheter Albumin Human (Flexbumin 25% Inj) 100 mls @ 60 mls/hr IV.SIG WITH DIALYSIS PRN PRN Reason: hypotension / volume replace Sodium Chloride (Ns Inj) 1,000 mls @ 0 mls/hr OTHER .Q0M PRN PRN Reason: for prime and rinse back Sodium Chloride (Ns Inj) 1,000 mls @ 200 mls/hr OTHER .Q5H PRN PRN Reason: for dialyzer flush PRN Sodium Chloride (Ns Inj) 1,000 mls @ 0 mls/hr IV.CONT .Q0M PRN PRN Reason: hypotension / volume replace Insulin Aspart (Novolog Insulin Correctional Sugar Inj) 0 unit SQ ACHS [facility]; Protocol Last Admin: 07/14/18 11:49 Dose: 5 unit Labetalol HCl (Trandate) 600 mg PO TID [facility] Last Admin: 07/14/18 12:27 Dose: Not Given Mannitol (Mannitol Inj) 12.5 gm IV.PUSH UNSCH PRN PRN Reason: hypotension / volume replace Nitroglycerin (Nitrostat Sl) 0.4 mg SL Q5M PRN PRN Reason: CHEST PAIN Ondansetron HCl (Zofran Inj) 4 mg IV.PUSH Q6H PRN PRN Reason: NAUSEA OR VOMITING Ondansetron HCl (Zofran Inj) 4 mg IV.PUSH UNSCH PRN PRN Reason: NAUSEA OR VOMITING Pantoprazole Sodium (Protonix) 40 mg PO DAILY [facility] Last Admin: 07/14/18 10:14 Dose: 40 mg Sevelamer Carbonate (Renvela) 1,600 mg PO TID [facility] Last Admin: 07/14/18 12:27 Dose: Not Given Sodium Chloride (Ns Flush) 2 ml IV.FLUSH BID [facility] Last Admin: 07/14/18 10:16 Dose: 2 ml Sodium Chloride (Ns Flush) 2 ml IV.FLUSH PRN PRN PRN Reason: FLUSH AFTER USING IV ACCESS Sodium Chloride (Ns Flush) 5 ml IV.FLUSH PRN PRN PRN Reason: flush each lumen during HD Exam Vital signs: Vital Signs 07/13/18 17:18 07/13/18 17:30 07/13/18 18:00 Temperature Pulse Rate 74 82 90 Respiratory Rate 16 16 Blood Pressure 145/64 H Pulse Oximetry 97 07/13/18 18:35 07/13/18 20:00 07/13/18 20:14 Temperature 97.5 F L Pulse Rate 80 90 77 Respiratory Rate 16 18 16 Blood Pressure 159/93 H 144/66 H 154/82 H Pulse Oximetry 97 92 L 96 07/13/18 22:35 07/14/18 00:00 07/14/18 02:26 Temperature 97.7 F Pulse Rate 78 79 84 Respiratory Rate 18 20 Blood Pressure 138/63 Pulse Oximetry 97 07/14/18 02:27 07/14/18 04:00 07/14/18 08:00 Temperature 96.5 F L 96.7 F L Pulse Rate 82 74 Respiratory Rate 18 18 Blood Pressure 171/77 H 135/65 Pulse Oximetry 94 L 97 98 07/14/18 10:05 07/14/18 11:53 07/14/18 12:00 Temperature 96.7 F L Pulse Rate 77 80 Respiratory Rate 18 Blood Pressure 159/70 H Pulse Oximetry 98 96 07/14/18 13:36 07/14/18 16:00 Temperature 96.3 F L Pulse Rate 71 Respiratory Rate 18 Blood Pressure 139/64 Pulse Oximetry 96 71 L Intake & Output 07/13/18 07/14/18 07/14/18 18:59 06:59 18:59 Intake Total 200 / 200 Balance 200 / 200 Weight 80.6 kg 82.6 kg Intake: Oral Supplement 200 / 200 Other: # Voids 2 Date of Last Bowel Movement 07/13/18 07/14/18 # Bowel Movements 1 Weight On Admission 82.6 kg Results - Lab Results 07/13/18 16:25 07/13/18 16:25 Most recent lab results Calcium 9.2 mg/dL (8.5-10.1) 07/13/18 16:25 Assessment and Plan - Assessment (1) End stage renal disease on dialysis Code(s): N18.6 - End stage renal disease; Z99.2 - Dependence on renal dialysis Status: Acute (2) Hyperkalemia Code(s): E87.5 - Hyperkalemia Status: Acute (3) Hypertension Code(s): I10 - Essential (primary) hypertension Status: Acute (4) Diabetes Code(s): E11.9 - Type 2 diabetes mellitus without complications Status: Acute - Attending Attestation Patient is a 68-year-old history of diabetes, end-stage renal disease on hemodialysis came in with increasing shortness of breath today is his dialysis day, patient has aortic sclerosis and congestive heart failure, recently admitted to the hospital, he is now again coming in with increasing shortness of breath, echocardiogram done 1 year ago showed moderate aortic stenosis with pulmonary hypertension, I change the diet to 2 g sodium 60 mEq of potassium diabetic diet, discussed salt and water restriction We will continue to monitor I discussed the care with RIYA Peck Agree with above assessment and plans I will repeat echocardiogram as above to see if aortic sclerosis has progressed. <Vince Rdz Filed: 07/14/18 17:01> (3) Hypertension Qualifiers:
--- NOTE | 2018-07-14 16:50 | ECG ---
Date Performed: 07/13/2018 Time Performed: 16:06:15 PTAGE: 68 years EKG: Sinus rhythm INTRAVENTRICULAR CONDUCTION DELAY LEFT VENTRICULAR HYPERTROPHY AND ST-T CHANGE POSSIBLE SEPTAL MYOCA RDIAL INFARCTION ABNORMAL ECG Compared to PREVIOUS TRACING , LVH is new with more marked ST-T wave changes, cannot rule out ischemi a. Clinical correlation recommended. PREVIOUS TRACIN05/31/2017 04.05 DOCTOR: Sage Mckeon Interpretating Date/Time 07/14/2018 16:48:25
[2018-07-14 19:39] LABS: Baso # (Auto) 0.1 th/mm3 (0.0-0.2); Baso % (Auto) 1.1 % (0.0-2.0); Eos # (Auto) 0.1 th/mm3 (0.0-0.4); Eos % (Auto) 1.4 % (0.0-4.0); Hematocrit 27.8 % (39.0-51.0); Hemoglobin 9.2 gm/dL (13.0-17.0); Lymph # (Auto) 0.8 th/mm3 (1.0-4.8); Lymph % (Auto) 7.9 % (9.0-44.0); Mean Corpuscular HGB Conc 33.2 % (32.0-36.0); Mean Corpuscular Hemoglobin 29.5 pg (27.0-34.0); Mean Platelet Volume 9.5 fL (7.0-11.0); Mono # (Auto) 0.6 th/mm3 (0.0-0.9); Neut % (Auto) 83.6 % (16.0-70.0); Platelet Count 330 th/mm3 (150-450); Red Blood Count 3.13 mil/mm3 (4.50-5.90); White Blood Count 9.6 th/mm3 (4.0-11.0)
[2018-07-15 07:39] LABS: Alanine Aminotransferase 9 U/L (12-78); Albumin 2.8 g/dL (3.4-5.0); Alkaline Phosphatase 233 U/L (45-117); Anion Gap 9 meq/L (5-15); Aspartate Aminotransferase 7 U/L (15-37); Blood Urea Nitrogen 41 mg/dL (7-18); Calcium 7.8 mg/dL (8.5-10.1); Carbon Dioxide 27.8 meq/L (21.0-32.0); Chloride 99 meq/L (98-107); Glomerular Filtration Rate 11 mL/min (>89); Glucose,Random 140 mg/dL (74-106); Potassium 3.8 meq/L (3.5-5.1); Sodium 136 meq/L (136-145); Total Protein 6.9 g/dL (6.4-8.2)
[2018-07-15 07:40] LABS: Creatine Kinase 48 U/L (39-308)
[2018-07-15] MEDS: Labetalol 200 MG Tablet PO SCH (08:21)
[2018-07-15] MEDS: Heparin - SQ 10,000 UNITS/ML Vial SQ SCH ×2 (08:24→22:54)
[2018-07-15] MEDS: Insulin NovoLOG Aspart Correctional Sugar Inj SQ SCH ×4 (08:31→22:53)
--- NOTE | 2018-07-15 08:53 | US ---
EXAM DATE: 07/15/2018 8:48 AM EST AGE/SEX: 68 years / Male INDICATIONS: Increased BUN/Creatnine. CLINICAL DATA: This is the patient's initial encounter. Patient reports that signs and symptoms have been present for > 1 year and indicates a pain score of 0/10. MEDICAL/SURGICAL HISTORY: Congestive heart failure. Gastroesophageal reflux disease. Coronary artery disease. CVA. Diabetes. ESRD. Myocardial infarction. Hyperlipidemia. Mass on left lung. TIA. . AKA, right lower extremity. Fistula. COMPARISON: [facility], CT CHEST W CONTRAST, 06/29/2018. . MEASUREMENTS: Right Kidney:__10.3 x 6.2 x 5.6 cm Left Kidney:__9.7 x 4.8 x 5.9 cm FINDINGS: Right Kidney: Normal echogenicity and cortical thickness. No mass or hydronephrosis. Increased linear echogenicity centrally within the renal sinus, likely vascular in etiology. Left Kidney: Normal echogenicity and cortical thickness. No mass or hydronephrosis.Increased linear e chogenicity centrally within the renal sinus, likely vascular in etiology. Bladder: Within normal limits given the degree of distension. Other: Small bilateral pleural effusions. CONCLUSION: 1. No evidence for obstructive uropathy. 2. Linear echogenicity centrally in the kidneys bilaterally likely reflecting vascular catheter loca tions. However, cannot exclude nonobstructing calyceal calculi. 3. Small bilateral pleural effusions. Electronically signed by: Rick Chadwick MD Board Certified Radiologist 07/15/2018 8:52 AM EST
--- NOTE | 2018-07-15 10:34 | P.PNIM ---
Subjective Interval history: Interval history: 68-year-old male who is seen examined today for fluid overload secondary to end-stage renal disease with decreased urinary output. Patient seen and examined, at bedside. Doing much improved overnight. He is breathing better. Continued on 2 L nasal cannula this is baseline for patient at home. He is able to lie flat today. Lab work improved today. Awaiting echocardiogram. Nephrology is following. Eating well without any nausea or vomiting denies any chest pain or shortness of breath. Spoke at length with and regarding strict sodium restriction as well as fluid restriction. Physical Exam Vital signs: Vital Signs 07/14/18 11:53 07/14/18 12:00 07/14/18 13:36 Temperature 96.7 F L Pulse Rate 77 80 Respiratory Rate 18 Blood Pressure 159/70 H Pulse Oximetry 96 96 07/14/18 16:00 07/14/18 20:00 07/14/18 21:52 Temperature 96.3 F L 98.6 F Pulse Rate 71 99 H 94 H Respiratory Rate 18 20 Blood Pressure 139/64 121/58 L Pulse Oximetry 71 L 95 07/14/18 22:25 07/15/18 00:00 07/15/18 04:00 Temperature 99.1 F 98.7 F Pulse Rate 97 H 81 Respiratory Rate 20 18 Blood Pressure 144/64 H 116/57 L Pulse Oximetry 100 95 96 07/15/18 04:55 07/15/18 08:00 07/15/18 08:42 Temperature 98.9 F Pulse Rate 80 91 H 92 H Respiratory Rate 20 16 Blood Pressure 132/68 Pulse Oximetry 97 Intake & Output 07/14/18 07/15/18 07/15/18 18:59 06:59 18:59 Intake Total 365 / Output Total Balance -15 / -15 365 / Weight 82 kg Intake: Oral / Output: Urine Other: # Voids 1 1 Date of Last Bowel Movement 07/14/18 07/14/18 Narrative: GENERAL: Well-developed, well-nourished, in no acute distress. alert and orientated. On 2 L nasal cannula HEENT: Head is normocephalic without any lesions or masses noted. Facial features are symmetric. Eyes: Extraocular muscles are intact. Conjunctivae were clear. NECK: Supple without any masses. Trachea midline no deviation. No JVD, CARDIAC: Regular rhythm, regular rate. S1/S2 are heard. 2/6 ejection murmur, no gallops or rubs. LUNGS: Diminished breath sounds noted bilaterally no wheeze, rhonchi or rales. No use of accessory muscles on inspiration or expiration. ABDOMEN: Soft, nontender. Nondistended. Bowel sounds heard in all 4 quadrants. No organomegaly or masses. Negative rebound, negative guarding EXTREMITIES: No edema,. No cyanosis or clubbing, AV fistula in the left upper extremity. Right [id number]-ovz-cbok amputation NEUROLOGY: Mood and affect appear appropriate. Cranial nerves II through XII grossly intact. Moving all extremities, speech is clear Results Labs CBC & Chem 7: 07/14/18 18:30 07/15/18 06:50 Imaging Imaging: Impressions Abdomen/Bladder Ultrasound 07/15/18 00:00 CONCLUSION: 1. No evidence for obstructive uropathy. 2. Linear echogenicity centrally in the kidneys bilaterally likely reflecting vascular catheter locations. However, cannot exclude nonobstructing calyceal calculi. 3. Small bilateral pleural effusions. Assessment and Plan (1) End stage renal disease on dialysis: Code(s): N18.6 - End stage renal disease; Z99.2 - Dependence on renal dialysis Status: Acute (2) Hyperkalemia: Code(s): E87.5 - Hyperkalemia Status: Acute (3) Hypertension: Code(s): I10 - Essential (primary) hypertension Status: Acute (4) Diabetes: Code(s): E11.9 - Type 2 diabetes mellitus without complications Status: Acute Plan End-stage renal disease on dialysis Patient presented with fluid overload and symptoms of orthopnea, dyspnea. Improved. Patient with associated hyperkalemia, improved. Status post Kayexalate Patient indicates that he has had decreased amount of urinary output since his last admission Nephrology consulted for dialysis, Saturday. Last dialysis yesterday. Nephrology consulted, appreciate input recommendations. Started on Bumex 2 mg twice daily on nondialysis days. Hypertension, hyper lipidemia, coronary artery disease Patient did present with equivocal troponin elevation, likely secondary to end- stage renal disease Patient is asymptomatic without any chest pain, nausea, vomiting, diaphoresis Awaiting repeat cardiac enzymes to rule out acute coronary event. Unchanged. I personally reviewed patient's EKGs and there have been no significant changes since May 2017 Continue home medications. -Continue Bumex. -Awaiting echocardiogram to assess for worsening aortic sclerosis. Follow. Diabetes Accu-Cheks with sliding scale insulin DVT prevention Subcutaneous heparin Discussed Condition With: Patient, family at bedside, nursing staff, Dr. Faulkner Discharge disposition: Awaiting echocardiogram today and discharge clearance from nephrology. Progress Note: Quality VTE Deep Vein Thrombosis/Pulmonary Embolism Present on Admission: No _ (1) Diabetes Qualifiers: Chronic kidney disease stage: Diabetes mellitus complication detail: Diabetes mellitus complication status: Diabetes mellitus long-term insulin use : Diabetes mellitus macular edema: Diabetes mellitus type: Diabetic retinopathy severity: Laterality: Proliferative retinopathy type: (2) Hypertension Qualifiers: Hypertension type:
[2018-07-15] MEDS ORDERED: Sodium Chlor 0.9% Inj 250 ML IV.SIG SCH (12:59)
[2018-07-15] MEDS ORDERED: Labetalol 200 MG Tablet PO SCH (14:00)
--- NOTE | 2018-07-15 17:21 | ECHRPT ---
Indication: Heart Failure CONCLUSIONS Mildly dilated left ventricle. Mild concentric left ventricular hypertrophy. The left ventricular systolic function is severely reduced with an estimated ejection fraction in th e range of 25-30%. The left atrial size is moderately dilated. Mild mitral valve regurgitation. Mitral annular calcification is present. Aortic valve sclerosis is present. Mild aortic valve stenosis. Aortic valve area is 1.1 cm. Aortic valve mean gradient is 11 mmHg. Trace aortic valve regurgitation. There is trace tricuspid valve regurgitation. The estimated pulmonary arterial pressure is 59 mmHg. BP: / HR: Rhythm: MEASUREMENTS (Male / Female) Normal Values Technical Quality:Fair 2D ECHO LV Diastolic Diameter PLAX 5.8 cm 4.2 - 5.9 / 3.9 - 5.3 cm LV Systolic Diameter PLAX 4.9 cm IVS Diastolic Thickness 1.2 cm 0.6 - 1.0 / 0.6 - 0.9 cm LVPW Diastolic Thickness 1.2 cm 0.6 - 1.0 / 0.6 - 0.9 cm LV Relative Wall Thickness 0.4 RV Internal Dim ED PLAX 3.1 cm LVOT Diameter 1.9 cm Aortic Root Diameter 2.9 cm LA Systolic Diameter LX 4.8 cm 3.0 - 4.0 / 2.7 - 3.8 cm DOPPLER AV Peak Velocity 239.0 cm/s AV Peak Gradient 22.8 mmHg AV Mean Gradient 11.0 mmHg AV Velocity Time Integral 38.0 cm LVOT Peak Velocity 75.2 cm/s LVOT Peak Gradient 2.3 mmHg LVOT Velocity Time Integral 14.4 cm AV Area Cont Eq vti 1.1 cm AV Area Cont Eq pk 0.9 cm Mitral E Point Velocity 118.0 cm/s Mitral A Point Velocity 102.0 cm/s Mitral E to A Ratio 1.2 LV E' Lateral Velocity 10.8 cm/s Mitral E to LV E' Lateral Ratio 10.9 LV E' Septal Velocity 2.5 cm/s Mitral E to LV E' Septal Ratio 46.6 TR Peak Velocity 349.0 cm/s TR Peak Gradient 48.7 mmHg Right Atrial Pressure 10.0 mmHg Pulmonary Artery Systolic Pressu 58.7 mmHg Right Ventricular Systolic Press 58.7 mmHg PV Peak Velocity 153.0 cm/s PV Peak Gradient 9.4 mmHg FINDINGS LEFT VENTRICLE Mildly dilated left ventricle. Mild concentric left ventricular hypertrophy. The left ventricular systolic function is severely reduced with an estimated ejection fraction in th e range of 25-30%. RIGHT VENTRICLE Normal right ventricular size and systolic function. LEFT ATRIUM The left atrial size is [id number] dilated. RIGHT ATRIUM The right atrial size is normal. ATRIAL SEPTUM Normal atrial septal thickness without atrial level shunting by limited color doppler interrogation. AORTA The aortic root and proximal ascending aorta are normal in size on limited imaging. MITRAL VALVE Mild thickening of the mitral valve leaflets. Mild mitral valve regurgitation. Mitral annular calcification is present. AORTIC VALVE Trileaflet aortic valve. Aortic valve sclerosis is present. Trace aortic valve regurgitation. Mild aortic valve stenosis. Aortic valve area is 1.1 cm. Aortic valve mean gradient is 11 mmHg. TRICUSPID VALVE There is trace tricuspid valve regurgitation. The estimated pulmonary arterial pressure is 59 mmHg. PULMONARY VALVE No pulmonary valve regurgitation or stenosis. VESSELS The inferior vena cava is normal in size. PERICARDIUM No pericardial effusion. Ismael Short (Electronically Signed) Final Date:15 July 2018 17:20
--- NOTE | 2018-07-15 19:11 | P.PNNP ---
Subjective Interval history: Patient has low blood pressure echocardiogram showed EF of 25-30% Physical Exam Vital signs: Vital Signs 07/14/18 20:00 07/14/18 21:52 07/14/18 22:25 Temperature 98.6 F Pulse Rate 99 H 94 H Respiratory Rate 20 Blood Pressure 121/58 L Pulse Oximetry 95 100 07/15/18 00:00 07/15/18 04:00 07/15/18 04:55 Temperature 99.1 F 98.7 F Pulse Rate 97 H 81 80 Respiratory Rate 20 18 20 Blood Pressure 144/64 H 116/57 L Pulse Oximetry 95 96 07/15/18 08:00 07/15/18 08:42 07/15/18 12:00 Temperature 98.9 F Pulse Rate 91 H 92 H 57 L Respiratory Rate 16 Blood Pressure 132/68 Pulse Oximetry 97 07/15/18 12:30 07/15/18 13:02 07/15/18 13:54 Temperature 98.2 F Pulse Rate 58 L 57 L Respiratory Rate 16 Blood Pressure 72/48 L 73/45 L 91/53 L Pulse Oximetry 100 07/15/18 16:00 07/15/18 17:00 07/15/18 18:29 Temperature 97.6 F Pulse Rate 56 L 56 L 57 L Respiratory Rate 16 Blood Pressure 76/40 L 88/52 L 99/53 L Pulse Oximetry 100 Intake & Output 07/15/18 07/15/18 07/16/18 06:59 18:59 06:59 Intake Total 365 / 365 650 / 650 Balance 365 / 365 650 / 650 Weight 82 kg Intake: IV 250 / 250 NS Inj 250 ML @ 500 mls/hr IV. 250 / 250 SIG BOLUS IAN Rx#:[id number] Oral 365 / 365 400 / 400 Other: # Voids 1 0 Date of Last Bowel Movement 07/14/18 # Bowel Movements 0 Narrative: GENERAL: Appears to be in no acute distress. Resting comfortably. SKIN: Warm and dry, intact, No lesions seen. HEAD: Normocephalic. EYES: No scleral icterus. No injection or drainage. Pupils are equal and reactive to light. NECK: Supple, trachea midline. No JVD or lymphadenopathy. CARDIOVASCULAR: Regular rate and rhythm 2-3/6 aortic murmur heard, no gallops, or rubs. Left upper extremity AV fistula with positive bruit and thrill. RESPIRATORY: Breath sounds equal bilaterally. No accessory muscle use. Breath sounds with fine crackles to bilateral bases. Nasal cannula. GASTROINTESTINAL: Abdomen soft, non-tender, nondistended. Positive BS in all 4 quadrants. BACK: Nontender without obvious deformity. No CVA tenderness. Assessment and Plan - Assessment (1) End stage renal disease on dialysis Code(s): N18.6 - End stage renal disease; Z99.2 - Dependence on renal dialysis Status: Acute Plan: Presented with shortness of breath, worse with laying flat Chest x-ray revealed mild pulmonary edema Previously admitted with same symptoms, treated for pneumonia. Left Thoracentesis completed July 01. Compliant with hemodialysis Saturday schedule. Follows a strict fluid restriction plan, sodium restriction, compliant. Repeat echocardiogram showed significant reduced EF of 25-30% he needs to follow with cardiology he has congestive heart failure dilated cardiomyopathy aortic stenosis remains mild PA pressures 59 mmHg moderate to severe Pulmonary hypertension Continue with water restriction and salt restriction Blood pressure dropped holding labetalol started midodrine 10 mg twice daily blood pressure did improve Compliance with dialysis discussed Ultrasound showed chronic kidney disease and possibility of vascular issue or calyceal stone (2) Hyperkalemia Code(s): E87.5 - Hyperkalemia Status: Acute (3) Hypertension Code(s): I10 - Essential (primary) hypertension Status: Acute Qualifiers: Plan: hold labetalol 600 mg 3 times daily as blood pressure dropped On Bumex 2 mg twice daily, nondialysis days -Continue to monitor (4) Diabetes Code(s): E11.9 - Type 2 diabetes mellitus without complications Status: Acute Plan: Blood sugar improved Goal glucose readings between 140-180 -Continue sliding scale per policy
[2018-07-16] MEDS: Insulin NovoLOG Aspart Correctional Sugar Inj SQ SCH ×4 (08:01→21:12)
[2018-07-16] MEDS: Heparin - SQ 10,000 UNITS/ML Vial SQ SCH ×2 (08:17→21:14)
--- NOTE | 2018-07-16 11:28 | P.PNIM ---
Subjective Interval history: Interval history: Interval history: 68-year-old male who is seen examined today for fluid overload secondary to end-stage renal disease with decreased urinary output. Patient seen and examined, at bedside. Patient slept well overnight. No continued shortness of breath. Blood pressure was stable with labetalol on hold. Nephrology started on Midodrin. Echocardiogram results showing severely reduced systolic function of an EF of 25 -30%. Cardiology consulted and spoke with Dr. martinez who request patient to be transferred to the main hospital for evaluation. and patient had been updated and all questions answered. Continue to monitor closely. Physical Exam Vital signs: Vital Signs 07/15/18 12:00 07/15/18 12:30 07/15/18 13:02 Temperature 98.2 F Pulse Rate 57 L 58 L Respiratory Rate 16 Blood Pressure 72/48 L 73/45 L Pulse Oximetry 100 07/15/18 13:54 07/15/18 16:00 07/15/18 17:00 Temperature 97.6 F Pulse Rate 57 L 56 L 56 L Respiratory Rate 16 Blood Pressure 91/53 L 76/40 L 88/52 L Pulse Oximetry 100 07/15/18 18:29 07/15/18 20:00 07/16/18 00:00 Temperature 97.4 F L 96.8 F L Pulse Rate 57 L 60 74 Respiratory Rate 18 18 Blood Pressure 99/53 L 94/54 L 108/53 L Pulse Oximetry 96 100 07/16/18 04:00 07/16/18 07:45 07/16/18 07:50 Temperature 97.7 F Pulse Rate 66 Respiratory Rate 18 Blood Pressure 122/57 L Pulse Oximetry 96 96 100 07/16/18 08:00 Temperature 96.1 F L Pulse Rate 76 Respiratory Rate 15 Blood Pressure 137/72 Pulse Oximetry 100 Intake & Output 07/15/18 07/16/18 07/16/18 18:59 06:59 18:59 Intake Total 650 / 650 200 / 200 Balance 650 / 650 200 / 200 Weight 82 kg Intake: IV 250 / 250 NS Inj 250 ML @ 500 mls/hr IV. 250 / 250 SIG BOLUS IAN Rx#:[id number] Oral 400 / 400 Oral Supplement 200 / 200 Other: # Voids 0 2 Date of Last Bowel Movement 07/14/18 07/14/18 # Bowel Movements 0 2 Narrative: GENERAL: Well-developed, well-nourished, in no acute distress. alert and orientated. On 2 L nasal cannula HEENT: Head is normocephalic without any lesions or masses noted. Facial features are symmetric. Eyes: Extraocular muscles are intact. Conjunctivae were clear. NECK: Supple without any masses. Trachea midline no deviation. No JVD, CARDIAC: Regular rhythm, regular rate. S1/S2 are heard. 2/6 ejection murmur, no gallops or rubs. LUNGS: Diminished breath sounds noted bilaterally no wheeze, rhonchi or rales. No use of accessory muscles on inspiration or expiration. ABDOMEN: Soft, nontender. Nondistended. Bowel sounds heard in all 4 quadrants. No organomegaly or masses. Negative rebound, negative guarding EXTREMITIES: No edema,. No cyanosis or clubbing, AV fistula in the left upper extremity. Right euamn-[id number]-vald amputation NEUROLOGY: Mood and affect appear appropriate. Cranial nerves II through XII grossly intact. Moving all extremities, speech is clear Results Labs CBC & Chem 7: 07/14/18 18:30 07/15/18 06:50 Assessment and Plan (1) End stage renal disease on dialysis: Code(s): N18.6 - End stage renal disease; Z99.2 - Dependence on renal dialysis Status: Acute (2) Hyperkalemia: Code(s): E87.5 - Hyperkalemia Status: Acute (3) Hypertension: Code(s): I10 - Essential (primary) hypertension Status: Acute (4) Diabetes: Code(s): E11.9 - Type 2 diabetes mellitus without complications Status: Acute Plan End-stage renal disease on dialysis Patient presented with fluid overload and symptoms of orthopnea, dyspnea. Improved. Patient with associated hyperkalemia, improved. Status post Kayexalate Patient indicates that he has had decreased amount of urinary output since his last admission Nephrology consulted for dialysis, Saturday. Continue to follow patient during hospitalization. Last dialysis yesterday. Was initially started on Bumex 2 mg twice daily on nondialysis days although this is been decreased to 1 mg twice daily due to hypotension. Defer to nephrology for changing dose and frequency. Hypotension -Bumex dose has been decreased from 2 mg PO BID to 1 mg PO BID. Labetolol placed on hold. -Started on Midodrine. BP is now stable. Continue to monitor. Systolic heart failure, in exacerbation Pulmonary hypertension -New diagnosis. BNP on admission 4700. Echocardiogram obtained showing severely reduced EF 25-30%. The left atrial size is moderately dilated. Mild mitral valve regurgitation. Aortic valve sclerosis is present. Mild aortic valve stenosis. Aortic valve area is 1.1 cm. Aortic valve mean gradient is 11 mmHg. Trace aortic valve regurgitation. There is trace tricuspid valve regurgitation. The estimated pulmonary arterial pressure is 59. -Cardiology has been consulted, spoke with on-call tapper helper Dr. Martinez, who is requesting patient to be transferred to the [facility] for evaluation. -Continue treatment. Diuretics on hold for now secondary to hypotension. Monitor intake and output. Encouraged low-sodium diet. Hypertension, hyperlipidemia, coronary artery disease Patient did present with equivocal troponin elevation, likely secondary to end- stage renal disease Patient is asymptomatic without any chest pain, nausea, vomiting, diaphoresis Repeat cardiac enzymes ruled out acute coronary event. I personally reviewed patient's EKGs and there have been no significant changes since May 2017 Hold hypertensive medications for now due to hypotension. -Echocardiogram results as above. Diabetes Accu-Cheks with sliding scale insulin DVT prevention Subcutaneous heparin Discussed Condition With: Patient, family at bedside, nursing staff, Dr. Faulkner and Dr. Martinez. The exam, history, and the medical decision-making described in the above note were completed with the assistance of the mid-level provider. I reviewed and agree with the findings presented. I attest that I had a [id number] encounter with the patient on the same day, and personally performed and documented my assessment and findings in the medical record. 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
--- NOTE | 2018-07-16 18:03 | P.PNNP ---
Subjective Interval history: Transferred to main hospital Physical Exam Vital signs: Vital Signs 07/15/18 18:29 07/15/18 20:00 07/16/18 00:00 Temperature 97.4 F L 96.8 F L Pulse Rate 57 L 60 74 Respiratory Rate 18 18 Blood Pressure 99/53 L 94/54 L 108/53 L Pulse Oximetry 96 100 07/16/18 04:00 07/16/18 07:45 07/16/18 07:50 Temperature 97.7 F Pulse Rate 66 Respiratory Rate 18 Blood Pressure 122/57 L Pulse Oximetry 96 96 100 07/16/18 08:00 07/16/18 12:00 07/16/18 16:00 Temperature 96.1 F L 97.2 F L 97.8 F Pulse Rate 76 89 82 Respiratory Rate 15 16 16 Blood Pressure 137/72 136/74 133/76 Pulse Oximetry 100 100 100 07/16/18 16:50 Temperature Pulse Rate 73 Respiratory Rate Blood Pressure Pulse Oximetry Intake & Output 07/15/18 07/16/18 07/16/18 18:59 06:59 18:59 Intake Total 650 / 650 200 / 200 Output Total 3000 / 3000 Balance 650 / 650 200 / 200 -3000 / -3000 Weight 82 kg Intake: IV 250 / 250 NS Inj 250 ML @ 500 mls/hr IV. 250 / 250 SIG BOLUS IAN Rx#:[id number] Oral 400 / 400 Oral Supplement 200 / 200 Output: Hemodialysis Amount 3000 / 3000 Other: # Voids 0 2 Date of Last Bowel Movement 07/14/18 07/14/18 # Bowel Movements 0 2 Narrative: GENERAL: Appears to be in no acute distress. Resting comfortably. SKIN: Warm and dry, intact, No lesions seen. HEAD: Normocephalic. EYES: No scleral icterus. No injection or drainage. Pupils are equal and reactive to light. NECK: Supple, trachea midline. No JVD or lymphadenopathy. CARDIOVASCULAR: Regular rate and rhythm 2-3/6 aortic murmur heard, no gallops, or rubs. Left upper extremity AV fistula with positive bruit and thrill. RESPIRATORY: Breath sounds equal bilaterally. No accessory muscle use. Breath sounds with fine crackles to bilateral bases. Nasal cannula. GASTROINTESTINAL: Abdomen soft, non-tender, nondistended. Positive BS in all 4 quadrants. BACK: Nontender without obvious deformity. No CVA tenderness. Assessment and Plan - Assessment (1) End stage renal disease on dialysis Code(s): N18.6 - End stage renal disease; Z99.2 - Dependence on renal dialysis Status: Acute Plan: Presented with shortness of breath, worse with laying flat Chest x-ray revealed mild pulmonary edema Previously admitted with same symptoms, treated for pneumonia. Left Thoracentesis completed July 01. Hemodialysis done earlier 3 L taken off tolerated well Patient has EF of 30-35% transferred to [facility] for cardiology evaluation Possibility of heart catheterization discussed with the family Continue to monitor (2) Hyperkalemia Code(s): E87.5 - Hyperkalemia Status: Acute (3) Hypertension Code(s): I10 - Essential (primary) hypertension Status: Acute Qualifiers: Plan: hold labetalol 600 mg 3 times daily as blood pressure dropped On Bumex 2 mg twice daily, nondialysis days -Continue to monitor (4) Diabetes Code(s): E11.9 - Type 2 diabetes mellitus without complications Status: Acute Plan: Blood sugar improved Goal glucose readings between 140-180 -Continue sliding scale per policy - Plan Potassium yesterday evening at 5.5 -Kayexalate administered last night -Follow BMP -Hemodialysis scheduled for today
[2018-07-16] MEDS ORDERED: Regadenoson Inj 0.4 MG/5 ML Syringe IV.PUSH ONE (18:17)
[2018-07-17 05:58] LABS: Baso # (Auto) 0.1 th/mm3 (0.0-0.2); Baso % (Auto) 1.4 % (0.0-2.0); Eos # (Auto) 0.2 th/mm3 (0.0-0.4); Eos % (Auto) 1.8 % (0.0-4.0); Hematocrit 27.1 % (39.0-51.0); Hemoglobin 9.5 gm/dL (13.0-17.0); Lymph # (Auto) 1.3 th/mm3 (1.0-4.8); Lymph % (Auto) 15.3 % (9.0-44.0); Mean Corpuscular HGB Conc 35.2 % (32.0-36.0); Mean Corpuscular Hemoglobin 31.4 pg (27.0-34.0); Mean Corpuscular Volume 89.2 fL (80.0-100.0); Mean Platelet Volume 8.4 fL (7.0-11.0); Mono # (Auto) 0.9 th/mm3 (0.0-0.9); Neut # (Auto) 6.1 th/mm3 (1.8-7.7); Neut % (Auto) 71.5 % (16.0-70.0); Platelet Count 282 th/mm3 (150-450); Red Blood Count 3.04 mil/mm3 (4.50-5.90); White Blood Count 8.5 th/mm3 (4.0-11.0)
[2018-07-17 06:27] LABS: Calcium 8.4 mg/dL (8.5-10.1); Carbon Dioxide 30.9 meq/L (21.0-32.0); Potassium 5.1 meq/L (3.5-5.1)
[2018-07-17] MEDS: Heparin - SQ 10,000 UNITS/ML Vial SQ SCH ×2 (09:50→21:43)
[2018-07-17] MEDS: Insulin NovoLOG Aspart Correctional Sugar Inj SQ SCH ×4 (10:32→22:47)
--- NOTE | 2018-07-17 15:29 | NM ---
EXAM DATE: 07/17/2018 2:59 PM EST AGE/SEX: 68 years / Male INDICATIONS:Angina. Coronary artery disease CLINICAL DATA: This is the patient's initial encounter. Patient reports that signs and symptoms have been present for 1 day and indicates a pain score of 3/10. MEDICAL/SURGICAL HISTORY: Congestive heart failure. Transient ischemic attack. Hypertension. . Right above the knee amputation. COMPARISON: No prior exams available for comparison. DOSE: 8.1 mCi Tc 99m Myoview at rest 26.3 mCi [id number] at stress 0.4 mg Lexiscan STRESS SYMPTOMS: None. EJECTION FRACTION: 9 % TECHNIQUE: The patient underwent pharmacologic stress with infusion of prescribed dose. Continuous ECG tracing was monitored during stress. Gated SPECT imaging was performed after stress and conventi onal SPECT imaging was performed at rest. The examination was performed on a SPECT/CT scanner, both attenuation and non-corrected datasets were reviewed. FINDINGS: Distribution: The maximum perfused segment at stress is in the anterolateral wall. Perfusion Study: Fixed perfusion defects especially in the septum and apex. Gated Study: There are intact wall motion and wall thickening without hypokinetic or dyskinetic segm ents. The ejection fraction is calculated at 9%. RISK CATEGORY: High (>3% Annual Mortality Rate) CONCLUSION: 1. Severe global hypokinesis with ejection fraction calculated at 9%. 2. Multiple fixed perfusion defects characteristic of prior infarcts. No definite reversibility to s uggest ischemia. Electronically signed by: Jerson Thomson MD Board Certified Radiologist 07/17/2018 3:28 PM EST
--- NOTE | 2018-07-17 16:19 | P.CONCA ---
History of Present Illness Service: Cardiology Consult date: 07/17/18 Requesting Physician: Loren Perez Reason for Consult: Severly reduced EF Primary Care Provider: POONAM ORTIZ Chief Complaint: Shortness of breath History of Present Illness: This is a 68-year-old male with a past medical history of hypertension, CHF, GERD, left lung mass, CAD, hyperlipidemia, diabetes, CVA, myocardial infarction , right AKA, end-stage renal disease on HD. He presented to the Emergency Department on 07/13/18 with complaints of increase shortness of breath, dyspnea and orthopnea. He currently is resting in bed with no complaints of CP, pressure , palpitations, dizziness, edema or SOB. Troponin level was 0.10 on 07/15/18 likely related to renal disease. Echo on 07/15/18 shows EF 24-30%, mild MR and , trace AR and TR. He had a stress test today which showed an EF of 9%, multiple fixed perfusion defects characteristic of prior infarcts No definite reversibility to suggest ischemia. Review of Systems All other systems reviewed negative except as stated in HPI PMFSH - History History Provided By: Patient, Family Member - Medical History Medical History: Medical History (Last Reviewed 07/14/18 @ 15:24 by Liv Guo APRN) CHF (congestive heart failure) GERD (gastroesophageal reflux disease) Heart disease Mass of left lung TIA (transient ischemic attack) CVA (cerebral vascular accident) Coronary artery disease Diabetes Dialysis patient End stage renal disease on dialysis Heart attack Hyperlipidemia Hypertension - Surgical History Surgical History: Surgical History (Last Reviewed 07/14/18 @ 15:24 by Liv Guo APRN) Above knee amputation of right lower extremity Fistula - Family History Family History: Family History (Last Reviewed 07/13/18 @ 18:37 by LIZBETH Middleton) Mother Family history of diabetes mellitus Brother Family history of heart disease Uncle Family history of heart disease - Tobacco History Second Hand Smoke Exposure: No Tobacco Use In Past 30 Days: No Smoking Status: Never smoker Tobacco Type: Cigarettes Number of Pack Years (if former smoker): 30 - Alcohol History How Often Do You Have a Drink Containing Alcohol: Never - Substance Use History Substance History: No History of Abuse - Travel History Recent Travel in the [place] Within the Last 8 Weeks: No Recent Travel Out of the Country Within the Last 8 Weeks: No - Immunization History Tetanus Immunization: >5 Years Medications and Allergies Allergies Allergy/AdvReac Type Severity Reaction Status Date / Time wool AdvReac Rash, Verified 07/13/18 14:38 Generalized Home Medications Medication Instructions Recorded Confirmed Type bumetanide 2 mg PO BID 06/29/18 07/13/18 History labetalol 600 mg PO TID 06/29/18 07/13/18 History pantoprazole [Protonix] 40 mg PO DAILY 06/29/18 07/13/18 History rosuvastatin [Crestor] 40 mg PO DAILY 06/29/18 07/13/18 History sevelamer HCl 1,600 mg PO TID 07/13/18 07/13/18 History Active Medications: Active Medications Acetaminophen (Tylenol) 650 mg PO Q4H PRN PRN Reason: Temp > 100.4 Acetaminophen (Tylenol) 650 mg PO UNSCH PRN PRN Reason: SEE LABEL COMMENTS Al Hydroxide/Mg Hydroxide (Milk Of Magnakni Liq) 30 ml PO Q12H PRN PRN Reason: Mild Constipation Albuterol (Duoneb Neb (Prn)) 1 ampul NEB Q4HR NEB PRN PRN Reason: sob Last Admin: 07/15/18 04:52 Dose: 1 ampul Albuterol (Duoneb Neb (Prn)) 1 ampul NEB UNSCH PRN PRN Reason: SHORTNESS OF BREATH/WHEEZING Atorvastatin Calcium (Lipitor) 80 mg PO DAILY [facility] Last Admin: 07/17/18 09:50 Dose: 80 mg Bumetanide (Bumex) 2 mg PO SuTuThSa [facility] Clonidine HCl (Catapres) 0.1 mg PO UNSCH PRN PRN Reason: SEE LABEL COMMENTS Dextrose (D50w Vial) 50 ml IV.PUSH UNSCH PRN PRN Reason: PER HYPOGLYCEMIA PROTOCOL Diphenhydramine HCl (Benadryl) 25 mg PO UNSCH PRN PRN Reason: SEE LABEL COMMENTS Epoetin Gianni (Epogen Inj) 4,000 unit IV.PUSH UNSCH PRN PRN Reason: SEE LABEL COMMENTS Last Admin: 07/16/18 09:52 Dose: 4,000 unit Gelatin (Gelfoam 12 Mm/7 Mm Topical) 1 foam TOPICAL PRN PRN PRN Reason: help stop bleeding from site Last Admin: 07/16/18 09:51 Dose: 1 foam Gentamicin Sulfate (Gentamicin Inj) 20 mg OTHER WITH DIALYSIS PRN PRN Reason: Dwell Gentamycin Lock Glucagon (Glucagon Inj) 1 mg OTHER PRN PRN PRN Reason: for Hypoglycemia Protocol Heparin Sodium (Porcine) (Heparin Inj) 5,000 units SQ Q12HR [facility] Last Admin: 07/17/18 09:50 Dose: 5,000 units Heparin Sodium (Porcine) (Heparin Inj) 8,000 units OTHER WITH DIALYSIS PRN PRN Reason: for machine prime Heparin Sodium (Porcine) (Heparin Inj) 1,000 units OTHER WITH DIALYSIS PRN PRN Reason: Dwell Heparin to Fill Catheter Albumin Human (Flexbumin 25% Inj) 100 mls @ 60 mls/hr IV.SIG WITH DIALYSIS PRN PRN Reason: hypotension / volume replace Last Admin: 07/16/18 09:52 Dose: 60 mls/hr Sodium Chloride (Ns Inj) 1,000 mls @ 0 mls/hr OTHER .Q0M PRN PRN Reason: for prime and rinse back Last Admin: 07/16/18 09:52 Dose: 200 mls/hr Sodium Chloride (Ns Inj) 1,000 mls @ 200 mls/hr OTHER .Q5H PRN PRN Reason: for dialyzer flush PRN Sodium Chloride (Ns Inj) 1,000 mls @ 0 mls/hr IV.CONT .Q0M PRN PRN Reason: hypotension / volume replace Insulin Aspart (Novolog Insulin Correctional Sugar Inj) 0 unit SQ ACHS [facility]; Protocol Last Admin: 07/17/18 11:35 Dose: Not Given Labetalol HCl (Trandate) 600 mg PO Q8HR [facility] Mannitol (Mannitol Inj) 12.5 gm IV.PUSH UNSCH PRN PRN Reason: hypotension / volume replace Midodrine (Proamatine) 10 mg PO BID [facility] Last Admin: 07/17/18 09:50 Dose: 10 mg Ondansetron HCl (Zofran Inj) 4 mg IV.PUSH Q6H PRN PRN Reason: NAUSEA OR VOMITING Ondansetron HCl (Zofran Inj) 4 mg IV.PUSH UNSCH PRN PRN Reason: NAUSEA OR VOMITING Pantoprazole Sodium (Protonix) 40 mg PO DAILY [facility] Last Admin: 07/17/18 09:50 Dose: 40 mg Sevelamer Carbonate (Renvela) 1,600 mg PO TID [facility] Last Admin: 07/17/18 15:46 Dose: Not Given Sodium Chloride (Ns Flush) 2 ml IV.FLUSH BID [facility] Last Admin: 07/17/18 10:06 Dose: 2 ml Sodium Chloride (Ns Flush) 2 ml IV.FLUSH PRN PRN PRN Reason: FLUSH AFTER USING IV ACCESS Last Admin: 07/15/18 01:26 Dose: 2 ml Sodium Chloride (Ns Flush) 5 ml IV.FLUSH PRN PRN PRN Reason: flush each lumen during HD Exam Vital signs: Vital Signs 07/16/18 16:50 07/16/18 20:00 07/16/18 20:54 Temperature 98.4 F Pulse Rate 73 74 Respiratory Rate 20 Blood Pressure 120/61 Pulse Oximetry 99 92 L 07/17/18 00:45 07/17/18 04:00 07/17/18 07:00 Temperature 97.8 F 97.8 F Pulse Rate 70 75 67 Respiratory Rate 20 18 Blood Pressure 115/56 L 112/53 L Pulse Oximetry 97 97 07/17/18 07:07 07/17/18 07:08 07/17/18 08:00 Temperature 99.0 F Pulse Rate 68 77 Respiratory Rate 16 20 Blood Pressure 157/70 H Pulse Oximetry 98 98 07/17/18 08:45 07/17/18 10:00 07/17/18 11:00 Temperature Pulse Rate 70 70 Respiratory Rate Blood Pressure Pulse Oximetry 99 07/17/18 12:00 Temperature 98.9 F Pulse Rate 70 Respiratory Rate 22 Blood Pressure 151/67 H Pulse Oximetry 100 Intake & Output 07/16/18 07/17/18 07/17/18 18:59 06:59 18:59 Intake Total 1080 / 1080 0 / 0 Output Total 3000 / 3000 0 / 0 Balance -1920 / -1920 0 / 0 Weight 81 kg Intake: Oral 1080 / 1080 0 / 0 Output: Urine 0 / 0 Hemodialysis Amount 3000 / 3000 Other: # Voids 4 0 Date of Last Bowel Movement 07/14/18 07/16/18 07/17/18 # Bowel Movements 0 3 - Constitutional no acute distress - Routine HEENT Exam Head: Present: normocephalic Eye: Present: PERRL ENT: Present: mucous membranes moist - Routine Neck Exam Present: full ROM - Routine Respiratory Exam Present: CTA bilaterally - Routine Cardiovascular Exam Present: S1 - Routine Abdominal Exam Present: normoactive bowel sounds - Routine Extremities Exam Present: edema, pulses intact, normal capillary refill, amputation. Absent: cyanosis, clubbing Comments: Right AKA - Routine Skin Exam Present: intact - Routine Neurological Exam Present: oriented X3 Results 07/17/18 05:44 07/17/18 05:44 CBC 07/17/18 Range/Units 05:44 WBC 8.5 (4.0-11.0) th/mm3 RBC 3.04 L (4.50-5.90) mil/mm3 Hgb 9.5 L (13.0-17.0) gm/dL Hct 27.1 L (39.0-51.0) % Plt Count 282 (150-450) th/mm3 Neut # (Auto) 6.1 (1.8-7.7) th/mm3 Lymph # (Auto) 1.3 (1.0-4.8) th/mm3 [place] # (Auto) 0.9 (0.0-0.9) th/mm3 Eos # (Auto) 0.2 (0.0-0.4) th/mm3 Baso # (Auto) 0.1 (0.0-0.2) th/mm3 Comprehensive Metabolic Panel 07/17/18 Range/Units 05:44 Sodium 138 (136-145) meq/L Potassium 5.1 D (3.5-5.1) meq/L Chloride 98 (98-107) meq/L Carbon Dioxide 30.9 (21.0-32.0) meq/L BUN 41 H (7-18) mg/dL Creatinine 5.26 H (0.60-1.30) mg/dL Calcium 8.4 L (8.5-10.1) mg/dL Intake and Output 07/17/18 07/17/18 07/17/18 06:59 14:59 22:59 Intake Total 0 / 0 Output Total 0 / 0 Balance 0 / 0 Intake: Oral 0 / 0 Output: Urine 0 / 0 Other: # Voids 0 Date of Last Bowel Movement 07/16/18 07/17/18 # Bowel Movements 3 Weight 81 kg - Imaging and Cardiology Imaging: Impressions Myocardial Perfusion Scan Nuc Med 07/17/18 06:00 CONCLUSION: 1. Severe global hypokinesis with ejection fraction calculated at 9%. 2. Multiple fixed perfusion defects characteristic of prior infarcts. No definite reversibility to suggest ischemia. Assessment and Plan - Assessment (1) Ischemic cardiomyopathy Code(s): I25.5 - Ischemic cardiomyopathy Status: Acute (2) CHF (congestive heart failure) Code(s): I50.9 - Heart failure, unspecified Status: Acute (3) End stage renal disease on dialysis Code(s): N18.6 - End stage renal disease; Z99.2 - Dependence on renal dialysis Status: Acute (4) Diabetes Code(s): E11.9 - Type 2 diabetes mellitus without complications Status: Acute (5) Hypertension Code(s): I10 - Essential (primary) hypertension Status: Acute - Plan Patient had nuclear stress test today which did not show any reversible defects. We will continue with medical management for severe ischemic cardiomyopathy. We will start him on Coreg 6.25 mg PO BID. Continue to monitor the patient on telemetry. We will continue to monitor the patient during his hospitalization. The patient was seen and evaluated by Dr. Rivas who participated in care, management and decision making. - Attending Attestation Patient seen and examined. I reviewed and agree with the evaluation and plan as presented. Nuc ST c/w ischemic CM; no evidence of ischemia. Continue tx for CHF including beta yasmeen. (5) Hypertension Qualifiers:
--- NOTE | 2018-07-17 17:32 | P.PNNP ---
Subjective Interval history: Patient is resting comfortably in bed, in no acute distress. Patient hungry has been n.p.o. for stress test. No complaints of shortness of breath, chest pain, nausea, or vomiting at this time. <Liv Guo - Last Filed: 07/17/18 17:14> Physical Exam Vital signs: Vital Signs 07/16/18 20:00 07/16/18 20:54 07/17/18 00:45 Temperature 98.4 F 97.8 F Pulse Rate 74 70 Respiratory Rate 20 20 Blood Pressure 120/61 115/56 L Pulse Oximetry 99 92 L 97 07/17/18 04:00 07/17/18 07:00 07/17/18 07:07 Temperature 97.8 F Pulse Rate 75 67 68 Respiratory Rate 18 16 Blood Pressure 112/53 L Pulse Oximetry 97 07/17/18 07:08 07/17/18 08:00 07/17/18 08:45 Temperature 99.0 F Pulse Rate 77 Respiratory Rate 20 Blood Pressure 157/70 H Pulse Oximetry 98 98 99 07/17/18 10:00 07/17/18 11:00 07/17/18 12:00 Temperature 98.9 F Pulse Rate 70 70 70 Respiratory Rate 22 Blood Pressure 151/67 H Pulse Oximetry 100 07/17/18 15:00 07/17/18 16:00 Temperature 98.2 F Pulse Rate 75 70 Respiratory Rate 21 Blood Pressure 113/55 L Pulse Oximetry 98 Intake & Output 07/16/18 07/17/18 07/17/18 18:59 06:59 18:59 Intake Total 1080 / 1080 0 / 0 Output Total 3000 / 3000 0 / 0 Balance -1920 / -1920 0 / 0 Weight 81 kg Intake: Oral 1080 / 1080 0 / 0 Output: Urine 0 / 0 Hemodialysis Amount 3000 / 3000 Other: # Voids 4 0 Date of Last Bowel Movement 07/14/18 07/16/18 07/17/18 # Bowel Movements 0 3 Narrative: GENERAL: Appears to be in no acute distress. Resting comfortably. SKIN: Warm and dry, intact, No lesions seen. HEAD: Normocephalic. EYES: No scleral icterus. No injection or drainage. Pupils are equal and reactive to light. NECK: Supple, trachea midline. No JVD or lymphadenopathy. CARDIOVASCULAR: Regular rate and rhythm 2-3/6 aortic murmur heard, no gallops, or rubs. Left upper extremity AV fistula with positive bruit and thrill. RESPIRATORY: Breath sounds equal bilaterally. No accessory muscle use. Breath sounds clear throughout. Nasal cannula. GASTROINTESTINAL: Abdomen soft, non-tender, nondistended. Positive BS in all 4 quadrants. BACK: Nontender without obvious deformity. No CVA tenderness. <Liv Guo - Last Filed: 07/17/18 17:14> Vital signs: Vital Signs 07/16/18 20:00 07/16/18 20:54 07/17/18 00:45 Temperature 98.4 F 97.8 F Pulse Rate 74 70 Respiratory Rate 20 20 Blood Pressure 120/61 115/56 L Pulse Oximetry 99 92 L 97 07/17/18 04:00 07/17/18 07:00 07/17/18 07:07 Temperature 97.8 F Pulse Rate 75 67 68 Respiratory Rate 18 16 Blood Pressure 112/53 L Pulse Oximetry 97 07/17/18 07:08 07/17/18 08:00 07/17/18 08:45 Temperature 99.0 F Pulse Rate 77 Respiratory Rate 20 Blood Pressure 157/70 H Pulse Oximetry 98 98 99 07/17/18 10:00 07/17/18 11:00 07/17/18 12:00 Temperature 98.9 F Pulse Rate 70 70 70 Respiratory Rate 22 Blood Pressure 151/67 H Pulse Oximetry 100 07/17/18 15:00 07/17/18 16:00 07/17/18 18:00 Temperature 98.2 F Pulse Rate 75 70 78 Respiratory Rate 21 Blood Pressure 113/55 L Pulse Oximetry 98 Intake & Output 07/16/18 07/17/18 07/17/18 18:59 06:59 18:59 Intake Total 1080 / 1080 0 / 0 0 / 0 Output Total 3000 / 3000 0 / 0 0 / 0 Balance -1920 / -1920 0 / 0 0 / 0 Weight 81 kg Intake: Oral 1080 / 1080 0 / 0 0 / 0 Output: Urine 0 / 0 0 / 0 Hemodialysis Amount 3000 / 3000 Other: # Voids 4 0 Date of Last Bowel Movement 07/14/18 07/16/18 07/17/18 # Bowel Movements 0 3 3 # Incontinent Bowel Movements 1 <Vince Rdz - Last Filed: 07/17/18 18:37> Assessment and Plan - Assessment (1) End stage renal disease on dialysis Code(s): N18.6 - End stage renal disease; Z99.2 - Dependence on renal dialysis Status: Acute Plan: Presented with shortness of breath, worse with laying flat Previously admitted with same symptoms, treated for pneumonia. Left Thoracentesis completed July 01. Patient has EF of 25-30%, on recent echo 07/15/18 Status post stress test today, revealed fixed defects, global hypokinesis, no reversible defects noted. Plans for medical management -Continue to monitor -Plans for dialysis tomorrow -Counseled on strict monitoring of sodium and fluid intake, patient is non- compliant with this. -Continue maintenance dose of Bumex (2) Hyperkalemia Code(s): E87.5 - Hyperkalemia Status: Acute Plan: Potassium 5.1, yesterday at 3.8 -Continue to monitor (3) Hypertension Code(s): I10 - Essential (primary) hypertension Status: Acute Plan: Pressure currently acceptable Home dose of labetalol was discontinued previously due to hypotension On Bumex 2 mg twice daily, nondialysis days Coreg 6.25 mg twice a day has been started for ischemic cardiomyopathy management -Continue to monitor -Clonidine as needed (4) Diabetes Code(s): E11.9 - Type 2 diabetes mellitus without complications Status: Acute Plan: Goal glucose readings between 140-180 -Continue sliding scale per policy (5) Ischemic cardiomyopathy Code(s): I25.5 - Ischemic cardiomyopathy Status: Acute Plan: 07/15/2018 echocardiogram revealed an EF of 25-30% status post stress test today revealed an EF of 9%, revealed fixed defects, no reversibility seen Patient is euvolemic at this time -Medical management planned, Coreg 6.25 mg started per cardiology -Patient not a candidate for JOSHUA and ARB due to end-stage renal disease -Maintenance of Bumex on nondialysis days -Stressed the importance of fluid and sodium restriction. <Liv Guo - Last Filed: 07/17/18 17:14> - Assessment (1) End stage renal disease on dialysis Code(s): N18.6 - End stage renal disease; Z99.2 - Dependence on renal dialysis Status: Acute (2) Hyperkalemia Code(s): E87.5 - Hyperkalemia Status: Acute (3) Hypertension Code(s): I10 - Essential (primary) hypertension Status: Acute Qualifiers: (4) Diabetes Code(s): E11.9 - Type 2 diabetes mellitus without complications Status: Acute (5) Ischemic cardiomyopathy Code(s): I25.5 - Ischemic cardiomyopathy Status: Acute - Attending Attestation Patient is seen and examined and discussed with RIYA Peck Patient has dilated cardiomyopathy EF 9% on stress test and there is a fixed defect no reversible ischemia Prognosis is guarded Consider AICD? Hemodialysis scheduled for tomorrow <Vince Rdz - Last Filed: 07/17/18 18:37>
[2018-07-17] MEDS: Carvedilol 6.25 MG Tablet PO SCH (21:43)
--- NOTE | 2018-07-17 21:57 | P.PNIM ---
Subjective Interval history: Follow up for ESRD, CHF systolic. Patient is doing well. Currently on room air. Denies any chest pain, SOB, fever, chills. Physical Exam Vital signs: Vital Signs 07/17/18 00:45 07/17/18 04:00 07/17/18 07:00 Temperature 97.8 F 97.8 F Pulse Rate 70 75 67 Respiratory Rate 20 18 Blood Pressure 115/56 L 112/53 L Pulse Oximetry 97 97 07/17/18 07:07 07/17/18 07:08 07/17/18 08:00 Temperature 99.0 F Pulse Rate 68 77 Respiratory Rate 16 20 Blood Pressure 157/70 H Pulse Oximetry 98 98 07/17/18 08:45 07/17/18 10:00 07/17/18 11:00 Temperature Pulse Rate 70 70 Respiratory Rate Blood Pressure Pulse Oximetry 99 07/17/18 12:00 07/17/18 15:00 07/17/18 16:00 Temperature 98.9 F 98.2 F Pulse Rate 70 75 70 Respiratory Rate 22 21 Blood Pressure 151/67 H 113/55 L Pulse Oximetry 100 98 07/17/18 18:00 Temperature Pulse Rate 78 Respiratory Rate Blood Pressure Pulse Oximetry Intake & Output 07/17/18 07/17/18 07/18/18 06:59 18:59 06:59 Intake Total 0 / 0 0 / 0 Output Total 0 / 0 0 / 0 Balance 0 / 0 0 / 0 Weight 81 kg Intake: Oral 0 / 0 0 / 0 Output: Urine 0 / 0 0 / 0 Other: # Voids 0 Date of Last Bowel Movement 07/16/18 07/17/18 # Bowel Movements 3 3 # Incontinent Bowel Movements 1 Narrative: GENERAL: Alert, NAD. SKIN: Warm and dry. HEAD: Normocephalic. EYES: No scleral icterus. No injection or drainage. NECK: Supple, trachea midline. No JVD or lymphadenopathy. CARDIOVASCULAR: Regular rate and rhythm without gallops, or rubs. A systolic murmur present on the left sternal border. RESPIRATORY: Moderate air entry, moderately coarse breath sounds. No accessory muscle use. GASTROINTESTINAL: Abdomen soft, non-tender, nondistended. MUSCULOSKELETAL: No cyanosis, or edema. s/p right lower ext AKA. BACK: Nontender without obvious deformity. No CVA tenderness. Results Labs CBC & Chem 7: 07/17/18 05:44 07/17/18 05:44 Imaging Imaging: Impressions Myocardial Perfusion Scan Nuc Med 07/17/18 06:00 CONCLUSION: 1. Severe global hypokinesis with ejection fraction calculated at 9%. 2. Multiple fixed perfusion defects characteristic of prior infarcts. No definite reversibility to suggest ischemia. Assessment and Plan (1) End stage renal disease on dialysis: Code(s): N18.6 - End stage renal disease; Z99.2 - Dependence on renal dialysis Status: Acute (2) Hyperkalemia: Code(s): E87.5 - Hyperkalemia Status: Acute (3) Hypertension: Code(s): I10 - Essential (primary) hypertension Status: Acute (4) Diabetes: Code(s): E11.9 - Type 2 diabetes mellitus without complications Status: Acute (5) Ischemic cardiomyopathy: Code(s): I25.5 - Ischemic cardiomyopathy Status: Acute Plan End-stage renal disease on dialysis Patient presented with fluid overload and symptoms of orthopnea, dyspnea. Improved. Patient with associated hyperkalemia, improved. Status post Kayexalate Patient indicates that he has had decreased amount of urinary output since his last admission Nephrology consulted for dialysis, Saturday. Continue to follow patient during hospitalization. Dialysis tomorrow 07/18/2018. Bumex 2mg Qday on non-dialysis days. Systolic heart failure, in acute exacerbation Pulmonary hypertension -New diagnosis. BNP on admission 4700. Echocardiogram obtained showing severely reduced EF 25-30%. The estimated pulmonary arterial pressure is 59. -Cardiology consulted. Nuclear stress test shows no reversible ischemia. -Continue Coreg 6.25mg BID. Hypertension, hyperlipidemia, coronary artery disease Patient did present with equivocal troponin elevation, likely secondary to end- stage renal disease Patient is asymptomatic without any chest pain, nausea, vomiting, diaphoresis Repeat cardiac enzymes ruled out acute coronary event. Diabetes Accu-Cheks with sliding scale insulin Full code. Heparin SQ. Overall, patient is hemodynamically stable. On room air. If cleared by cardiology and nephrology, he can likely be discharged within 24-48 hours. Progress Note: Quality VTE Deep Vein Thrombosis/Pulmonary Embolism Present on Admission: No _ (1) Diabetes Qualifiers: Chronic kidney disease stage: Diabetes mellitus complication detail: Diabetes mellitus complication status: Diabetes mellitus manager intermediate insulin use : Diabetes mellitus macular edema: Diabetes mellitus type: Diabetic retinopathy severity: Laterality: Proliferative retinopathy type: (2) Hypertension Qualifiers: Hypertension type:
[2018-07-18] MEDS: Insulin NovoLOG Aspart Correctional Sugar Inj SQ SCH ×4 (08:38→23:47)
[2018-07-18] MEDS: Carvedilol 6.25 MG Tablet PO SCH ×2 (08:42→20:45)
[2018-07-18] MEDS: Heparin - SQ 10,000 UNITS/ML Vial SQ SCH ×2 (08:42→20:45)
--- NOTE | 2018-07-18 15:43 | P.PNNP ---
Subjective Interval history: Patient is seen during hemodialysis Physical Exam Vital signs: Vital Signs 07/17/18 16:00 07/17/18 18:00 07/17/18 19:00 Temperature 98.2 F Pulse Rate 70 78 60 Respiratory Rate 21 Blood Pressure 113/55 L Pulse Oximetry 98 07/17/18 20:00 07/17/18 21:00 07/17/18 22:00 Temperature 97.9 F Pulse Rate 74 72 70 Respiratory Rate 20 Blood Pressure 147/66 H Pulse Oximetry 93 L 07/17/18 23:00 07/18/18 00:00 07/18/18 00:13 Temperature 97.7 F Pulse Rate 70 68 81 Respiratory Rate 18 20 Blood Pressure 137/64 Pulse Oximetry 99 07/18/18 01:00 07/18/18 02:00 07/18/18 03:00 Temperature Pulse Rate 66 60 60 Respiratory Rate Blood Pressure Pulse Oximetry 07/18/18 04:00 07/18/18 05:00 07/18/18 06:00 Temperature 97.8 F Pulse Rate 62 65 64 Respiratory Rate 20 Blood Pressure 123/59 L Pulse Oximetry 99 07/18/18 07:00 07/18/18 08:00 07/18/18 09:00 Temperature 98.0 F Pulse Rate 72 66 66 Respiratory Rate 18 Blood Pressure 159/70 H Pulse Oximetry 95 07/18/18 10:00 07/18/18 11:00 07/18/18 12:00 Temperature 98.1 F Pulse Rate 64 63 64 Respiratory Rate 18 Blood Pressure 142/63 H Pulse Oximetry 98 07/18/18 13:00 07/18/18 14:00 07/18/18 15:00 Temperature Pulse Rate 68 64 61 Respiratory Rate Blood Pressure Pulse Oximetry Intake & Output 07/17/18 07/18/18 07/18/18 18:59 06:59 18:59 Intake Total 0 / 0 480 / 480 Output Total 0 / 0 Balance 0 / 0 480 / 480 Weight 79.5 kg Intake: Oral 0 / 0 480 / 480 Output: Urine 0 / 0 Other: Date of Last Bowel Movement 07/17/18 07/17/18 07/17/18 # Bowel Movements 3 # Incontinent Bowel Movements 1 - Constitutional no acute distress - Routine Neck Exam Present: supple - Routine Respiratory Exam Present: decreased breath sounds (At bases) - Routine Cardiovascular Exam Present: S1, S2, murmur (Systolic) - Routine Abdominal Exam Present: soft, normoactive bowel sounds - Routine Extremities Exam Present: amputation, AV fistula Assessment and Plan - Assessment (1) End stage renal disease on dialysis Code(s): N18.6 - End stage renal disease; Z99.2 - Dependence on renal dialysis Status: Acute Plan: Presented with shortness of breath, worse with laying flat Previously admitted with same symptoms, treated for pneumonia. Left Thoracentesis completed July 01. Patient has EF of 25-30%, on recent echo 07/15/18 Patient seen during hemodialysis 3 L of ultrafiltration planned Continue supportive care discharge planning per primary physician Prognosis is guarded (2) Hyperkalemia Code(s): E87.5 - Hyperkalemia Status: Acute Plan: Potassium 5.1 yesterday (3) Hypertension Code(s): I10 - Essential (primary) hypertension Status: Acute Qualifiers: Plan: Pressure currently acceptable Home dose of labetalol was discontinued previously due to hypotension On Bumex 2 mg twice daily, nondialysis days Coreg 6.25 mg twice a day has been started for ischemic cardiomyopathy management -Continue to monitor -Clonidine as needed (4) Diabetes Code(s): E11.9 - Type 2 diabetes mellitus without complications Status: Acute Plan: Goal glucose readings between 140-180 -Continue sliding scale per policy (5) Ischemic cardiomyopathy Code(s): I25.5 - Ischemic cardiomyopathy Status: Acute Plan: 07/15/2018 echocardiogram revealed an EF of 25-30% status post stress test today revealed an EF of 9%, revealed fixed defects, no reversibility seen Patient is euvolemic at this time -Medical management planned, Coreg 6.25 mg started per cardiology -Patient not a candidate for JOSHUA and ARB due to end-stage renal disease -Maintenance of Bumex on nondialysis days -Stressed the importance of fluid and sodium restriction.
--- NOTE | 2018-07-18 17:03 | P.PNCA ---
Subjective Interval history: Patient denies any CP, pressure, palpitations, dizziness, edema or SOB. He states that he is feeling better at this time. Medications and Allergies Allergies Allergy/AdvReac Type Severity Reaction Status Date / Time wool AdvReac Rash, Verified 07/13/18 14:38 Generalized Home Medications Medication Instructions Recorded Confirmed Type bumetanide 2 mg PO BID 06/29/18 07/13/18 History labetalol 600 mg PO TID 06/29/18 07/13/18 History pantoprazole [Protonix] 40 mg PO DAILY 06/29/18 07/13/18 History rosuvastatin [Crestor] 40 mg PO DAILY 06/29/18 07/13/18 History sevelamer HCl 1,600 mg PO TID 07/13/18 07/13/18 History Active Medications: Active Medications Acetaminophen (Tylenol) 650 mg PO Q4H PRN PRN Reason: Temp > 100.4 Acetaminophen (Tylenol) 650 mg PO UNSCH PRN PRN Reason: SEE LABEL COMMENTS Al Hydroxide/Mg Hydroxide (Milk Of C[place]) 30 ml PO Q12H PRN PRN Reason: Mild Constipation Albuterol (Duoneb Neb (Prn)) 1 ampul NEB Q4HR NEB PRN PRN Reason: sob Last Admin: 07/18/18 00:11 Dose: 1 ampul Albuterol (Duoneb Neb (Prn)) 1 ampul NEB UNSCH PRN PRN Reason: SHORTNESS OF BREATH/WHEEZING Atorvastatin Calcium (Lipitor) 80 mg PO DAILY FORMERLY [facility], [facility]1983 Last Admin: 07/18/18 08:42 Dose: 80 mg Bumetanide (Bumex) 2 mg PO SuTuThSa FOR[facility], [facility]1983 Last Admin: 07/17/18 22:47 Dose: 2 mg Carvedilol (Coreg) 6.25 mg PO BID FOR[facility], [facility]1983 Last Admin: 07/18/18 08:42 Dose: 6.25 mg Clonidine HCl (Catapres) 0.1 mg PO UNSCH PRN PRN Reason: SEE LABEL COMMENTS Dextrose (D50w Vial) 50 ml IV.PUSH UNSCH PRN PRN Reason: PER HYPOGLYCEMIA PROTOCOL Diphenhydramine HCl (Benadryl) 25 mg PO UNSCH PRN PRN Reason: SEE LABEL COMMENTS Epoetin Gianni (Epogen Inj) 4,000 unit IV.PUSH UNSCH PRN PRN Reason: SEE LABEL COMMENTS Last Admin: 07/16/18 09:52 Dose: 4,000 unit Gelatin (Gelfoam 12 Mm/7 Mm Topical) 1 foam TOPICAL PRN PRN PRN Reason: help stop bleeding from site Last Admin: 07/16/18 09:51 Dose: 1 foam Gentamicin Sulfate (Gentamicin Inj) 20 mg OTHER WITH DIALYSIS PRN PRN Reason: Dwell Gentamycin Lock Glucagon (Glucagon Inj) 1 mg OTHER PRN PRN PRN Reason: for Hypoglycemia Protocol Heparin Sodium (Porcine) (Heparin Inj) 5,000 units SQ Q12HR [facility], [facility] Last Admin: 07/18/18 08:42 Dose: 5,000 units Heparin Sodium (Porcine) (Heparin Inj) 8,000 units OTHER WITH DIALYSIS PRN PRN Reason: for machine prime Heparin Sodium (Porcine) (Heparin Inj) 1,000 units OTHER WITH DIALYSIS PRN PRN Reason: Dwell Heparin to Fill Catheter Albumin Human (Flexbumin 25% Inj) 100 mls @ 60 mls/hr IV.SIG WITH DIALYSIS PRN PRN Reason: hypotension / volume replace Last Admin: 07/16/18 09:52 Dose: 60 mls/hr Sodium Chloride (Ns Inj) 1,000 mls @ 0 mls/hr OTHER .Q0M PRN PRN Reason: for prime and rinse back Last Admin: 07/16/18 09:52 Dose: 200 mls/hr Sodium Chloride (Ns Inj) 1,000 mls @ 200 mls/hr OTHER .Q5H PRN PRN Reason: for dialyzer flush PRN Sodium Chloride (Ns Inj) 1,000 mls @ 0 mls/hr IV.CONT .Q0M PRN PRN Reason: hypotension / volume replace Insulin Aspart (Novolog Insulin Correctional Sugar Inj) 0 unit SQ ACHS FOR[facility], [facility]; Protocol Last Admin: 07/18/18 13:33 Dose: 3 unit Mannitol (Mannitol Inj) 12.5 gm IV.PUSH UNSCH PRN PRN Reason: hypotension / volume replace Midodrine (Proamatine) 10 mg PO BID FOR[facility], [facility] Last Admin: 07/17/18 21:43 Dose: 10 mg Ondansetron HCl (Zofran Inj) 4 mg IV.PUSH Q6H PRN PRN Reason: NAUSEA OR VOMITING Ondansetron HCl (Zofran Inj) 4 mg IV.PUSH UNSCH PRN PRN Reason: NAUSEA OR VOMITING Pantoprazole Sodium (Protonix) 40 mg PO DAILY FOR[facility], [facility]1983 Last Admin: 07/18/18 08:42 Dose: 40 mg Sevelamer Carbonate (Renvela) 1,600 mg PO TID FOR[facility], [facility] Last Admin: 07/18/18 13:27 Dose: 1,600 mg Sodium Chloride (Ns Flush) 2 ml IV.FLUSH BID FOR[facility], [facility] Last Admin: 07/18/18 08:43 Dose: 2 ml Sodium Chloride (Ns Flush) 2 ml IV.FLUSH PRN PRN PRN Reason: FLUSH AFTER USING IV ACCESS Last Admin: 07/15/18 01:26 Dose: 2 ml Sodium Chloride (Ns Flush) 5 ml IV.FLUSH PRN PRN PRN Reason: flush each lumen during HD Physical Exam Vital signs: Vital Signs 07/17/18 18:00 07/17/18 19:00 07/17/18 20:00 Temperature 97.9 F Pulse Rate 78 60 74 Respiratory Rate 20 Blood Pressure 147/66 H Pulse Oximetry 93 L 07/17/18 21:00 07/17/18 22:00 07/17/18 23:00 Temperature Pulse Rate 72 70 70 Respiratory Rate Blood Pressure Pulse Oximetry 07/18/18 00:00 07/18/18 00:13 07/18/18 01:00 Temperature 97.7 F Pulse Rate 68 81 66 Respiratory Rate 18 20 Blood Pressure 137/64 Pulse Oximetry 99 07/18/18 02:00 07/18/18 03:00 07/18/18 04:00 Temperature 97.8 F Pulse Rate 60 60 62 Respiratory Rate 20 Blood Pressure 123/59 L Pulse Oximetry 99 07/18/18 05:00 07/18/18 06:00 07/18/18 07:00 Temperature Pulse Rate 65 64 72 Respiratory Rate Blood Pressure Pulse Oximetry 07/18/18 08:00 07/18/18 09:00 07/18/18 10:00 Temperature 98.0 F Pulse Rate 66 66 64 Respiratory Rate 18 Blood Pressure 159/70 H Pulse Oximetry 95 07/18/18 11:00 07/18/18 12:00 07/18/18 13:00 Temperature 98.1 F Pulse Rate 63 64 68 Respiratory Rate 18 Blood Pressure 142/63 H Pulse Oximetry 98 07/18/18 14:00 07/18/18 15:00 07/18/18 16:00 Temperature 98.4 F Pulse Rate 64 61 62 Respiratory Rate 18 Blood Pressure 132/64 Pulse Oximetry 95 Intake & Output 07/17/18 07/18/18 07/18/18 18:59 06:59 18:59 Intake Total 0 / 0 480 / 480 Output Total 0 / 0 Balance 0 / 0 480 / 480 Weight 79.5 kg Intake: Oral 0 / 0 480 / 480 Output: Urine 0 / 0 Other: Date of Last Bowel Movement 07/17/18 07/17/18 07/17/18 # Bowel Movements 3 # Incontinent Bowel Movements 1 - Constitutional no acute distress - Routine HEENT Exam Head: Present: normocephalic Eye: Present: PERRL ENT: Present: mucous membranes moist - Routine Neck Exam Present: full ROM - Routine Respiratory Exam Present: CTA bilaterally - Routine Cardiovascular Exam Present: S1, S2 - Routine Abdominal Exam Present: normoactive bowel sounds - Routine Extremities Exam Present: full ROM, pulses intact, normal capillary refill, amputation. Absent: cyanosis, clubbing, edema - Routine Skin Exam Present: intact - Routine Neurological Exam Present: oriented X3 - Detailed Neurological Exam: Coma Scale Eye Opening: Spontaneous Verbal Response: Oriented Motor Response: Obey commands [place] Coma Scale Total: 15 - Routine Psychiatric Exam Present: normal affect Results 07/17/18 05:44 07/17/18 05:44 CBC 07/17/18 Range/Units 05:44 WBC 8.5 (4.0-11.0) th/mm3 RBC 3.04 L (4.50-5.90) mil/mm3 Hgb 9.5 L (13.0-17.0) gm/dL Hct 27.1 L (39.0-51.0) % Plt Count 282 (150-450) th/mm3 Neut # (Auto) 6.1 (1.8-7.7) th/mm3 Lymph # (Auto) 1.3 (1.0-4.8) th/mm3 [place] # (Auto) 0.9 (0.0-0.9) th/mm3 Eos # (Auto) 0.2 (0.0-0.4) th/mm3 Baso # (Auto) 0.1 (0.0-0.2) th/mm3 Comprehensive Metabolic Panel 07/17/18 Range/Units 05:44 Sodium 138 (136-145) meq/L Potassium 5.1 D (3.5-5.1) meq/L Chloride 98 (98-107) meq/L Carbon Dioxide 30.9 (21.0-32.0) meq/L BUN 41 H (7-18) mg/dL Creatinine 5.26 H (0.60-1.30) mg/dL Calcium 8.4 L (8.5-10.1) mg/dL Intake and Output 07/18/18 07/18/18 07/18/18 06:59 14:59 22:59 Intake Total 480 / 480 Balance 480 / 480 Intake: Oral 480 / 480 Other: Date of Last Bowel Movement 07/17/18 07/17/18 07/17/18 Weight 79.5 kg - Imaging and Cardiology Imaging: Impressions Myocardial Perfusion Scan Nuc Med 07/17/18 06:00 CONCLUSION: 1. Severe global hypokinesis with ejection fraction calculated at 9%. 2. Multiple fixed perfusion defects characteristic of prior infarcts. No definite reversibility to suggest ischemia. Assessment and Plan - Assessment (1) Ischemic cardiomyopathy Code(s): I25.5 - Ischemic cardiomyopathy Status: Acute (2) CHF (congestive heart failure) Code(s): I50.9 - Heart failure, unspecified Status: Acute (3) End stage renal disease on dialysis Code(s): N18.6 - End stage renal disease; Z99.2 - Dependence on renal dialysis Status: Acute (4) Diabetes Code(s): E11.9 - Type 2 diabetes mellitus without complications Status: Acute (5) Hypertension Code(s): I10 - Essential (primary) hypertension Status: Acute - Plan There are no new cardiac issues noted at this time. We will continue with current cardiac treatment plan and adjust as needed. He is currently receiving HD, nephrology evaluation and treatment in progress. We will continue current treatment for cardiomyopathy. Continue to monitor the patient on telemetry. We will continue to monitor the patient during his hospitalization. The patient was seen and evaluated by Dr. Rivas who participated in care, management and decision making. - Attending Attestation Patient seen and examined. I reviewed and agree with the evaluation and plan as presented. Continue and titrate tx for CHF/ischemic CM. Increase activity. F/u with Dr. Madhavi Hanley as outpatient. (5) Hypertension Qualifiers:
--- NOTE | 2018-07-18 17:08 | P.PNIM ---
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 patient says he is feeling all right. Denies any chest pain. Feels like going home Physical Exam Vital signs: Vital Signs 07/17/18 18:00 07/17/18 19:00 07/17/18 20:00 Temperature 97.9 F Pulse Rate 78 60 74 Respiratory Rate 20 Blood Pressure 147/66 H Pulse Oximetry 93 L 07/17/18 21:00 07/17/18 22:00 07/17/18 23:00 Temperature Pulse Rate 72 70 70 Respiratory Rate Blood Pressure Pulse Oximetry 07/18/18 00:00 07/18/18 00:13 07/18/18 01:00 Temperature 97.7 F Pulse Rate 68 81 66 Respiratory Rate 18 20 Blood Pressure 137/64 Pulse Oximetry 99 07/18/18 02:00 07/18/18 03:00 07/18/18 04:00 Temperature 97.8 F Pulse Rate 60 60 62 Respiratory Rate 20 Blood Pressure 123/59 L Pulse Oximetry 99 07/18/18 05:00 07/18/18 06:00 07/18/18 07:00 Temperature Pulse Rate 65 64 72 Respiratory Rate Blood Pressure Pulse Oximetry 07/18/18 08:00 07/18/18 09:00 07/18/18 10:00 Temperature 98.0 F Pulse Rate 66 66 64 Respiratory Rate 18 Blood Pressure 159/70 H Pulse Oximetry 95 07/18/18 11:00 07/18/18 12:00 07/18/18 13:00 Temperature 98.1 F Pulse Rate 63 64 68 Respiratory Rate 18 Blood Pressure 142/63 H Pulse Oximetry 98 07/18/18 14:00 07/18/18 15:00 07/18/18 16:00 Temperature 98.4 F Pulse Rate 64 61 62 Respiratory Rate 18 Blood Pressure 132/64 Pulse Oximetry 95 Intake & Output 07/17/18 07/18/18 07/18/18 18:59 06:59 18:59 Intake Total 0 / 0 480 / 480 Output Total 0 / 0 Balance 0 / 0 480 / 480 Weight 79.5 kg Intake: Oral 0 / 0 480 / 480 Output: Urine 0 / 0 Other: Date of Last Bowel Movement 07/17/18 07/17/18 07/17/18 # Bowel Movements 3 # Incontinent Bowel Movements 1 Narrative: GENERAL: Alert, NAD. SKIN: Warm and dry. HEAD: Normocephalic. EYES: No scleral icterus. No injection or drainage. NECK: Supple, trachea midline. No JVD CARDIOVASCULAR: Regular rate and rhythm without gallops, or rubs. A systolic murmur present on the left sternal border. RESPIRATORY: Moderate air entry, moderately coarse breath sounds. No accessory muscle use. GASTROINTESTINAL: Abdomen soft, non-tender, nondistended. MUSCULOSKELETAL: No cyanosis, or edema. s/p right lower ext AKA. BACK: Nontender without obvious deformity. No CVA tenderness. Results Labs CBC & Chem 7: 07/17/18 05:44 07/17/18 05:44 Assessment and Plan (1) End stage renal disease on dialysis: Code(s): N18.6 - End stage renal disease; Z99.2 - Dependence on renal dialysis Status: Acute (2) Hyperkalemia: Code(s): E87.5 - Hyperkalemia Status: Acute (3) Hypertension: Code(s): I10 - Essential (primary) hypertension Status: Acute (4) Diabetes: Code(s): E11.9 - Type 2 diabetes mellitus without complications Status: Acute (5) Ischemic cardiomyopathy: Code(s): I25.5 - Ischemic cardiomyopathy Status: Acute Plan /-stage renal disease on dialysis Patient presented with fluid overload and symptoms of orthopnea, dyspnea. Improved. Patient with associated hyperkalemia, improved. Status post Kayexalate Patient indicates that he has had decreased amount of urinary output since his last admission Nephrology consulted for dialysis, Saturday. Continue to follow patient during hospitalization. Dialysis Saturday. Bumex 2mg Qday on non-dialysis days. //Systolic heart failure, in acute exacerbation Pulmonary hypertension -New diagnosis. BNP on admission 4700. Echocardiogram obtained showing severely reduced EF 25-30%. The estimated pulmonary arterial pressure is 59. -Cardiology consulted. Nuclear stress test shows no reversible ischemia. -Continue Coreg 6.25mg BID. = 07/18. Discussed with cardiology. Plan for discharge tomorrow without LifeVest or AICD if stable. //Hypertension, hyperlipidemia, coronary artery disease Patient did present with equivocal troponin elevation, likely secondary to end- stage renal disease Patient is asymptomatic without any chest pain, nausea, vomiting, diaphoresis Repeat cardiac enzymes ruled out acute coronary event. //Diabetes Accu-Cheks with sliding scale insulin Full code. Heparin SQ. = 07/18. Discussed with cardiology. Plan for discharge tomorrow without LifeVest or AICD if stable. 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
[2018-07-19 01:05] VITALS: RESP 16
[2018-07-19] MEDS: Insulin NovoLOG Aspart Correctional Sugar Inj SQ SCH ×2 (08:10→13:04)
[2018-07-19] MEDS: Carvedilol 6.25 MG Tablet PO SCH (08:12)
[2018-07-19] MEDS: Heparin - SQ 10,000 UNITS/ML Vial SQ SCH (08:12)
--- NOTE | 2018-07-19 08:19 | P.DCO ---
Diagnosis (1) Ischemic cardiomyopathy: Status: Acute (2) CHF (congestive heart failure): Status: Acute (3) End stage renal disease on dialysis: Status: Acute (4) Diabetes: Status: Acute (5) Hypertension: Status: Acute Physical Therapy Order: Evaluate and treat, Improve ambulation and Strength and gait training Home Health Nursing Order: Medical education, Signs/symptoms of disease process, CHF education, Oxygen administration education, Medication education-adverse effect and Nursing assessment with vital signs Case Management Consult Case Management Consult-Home Health: Yes I have seen patient Griselda Degroot on 07/19/18. 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
--- NOTE | 2018-07-19 08:29 | P.DS ---
DS: Providers Date of admission: 07/17/18 11:45 Primary care physician: POONAM ORTIZ Consults: 07/13/18 18:00 Consult to Nephrology Routine Consulting Provider: Awa Vela Does the patient have a Property Insurance Claims Examiner who follows them?: Yes Preferred Nephrology Nurse Unit Manager:: Vince Rdz Reason for Consultation: Fluid Overload with ESRD Notified:: Service Spoke with:: JACOB Date Notified:: 07/13/18 Time Notified:: 18:21 Ordering Provider: JANET 07/16/18 09:32 Consult to Cardiology Routine Consulting Provider: Teodoro Rivas Does the patient have a Filling Hauler Weaving who follows them?: Yes Preferred Political Reporter:: Jorge Hanley Reason for Consultation: severely reduced EF 25-30%. Notified:: Office Spoke with:: kevin Date Notified:: 07/16/18 Time Notified:: 11:19 Ordering Provider: LUZ MARINA Brief History from admission: 68-year-old male who is known to me from previous admission 2 weeks ago. Patient does have known history of hypertension, hyperlipidemia, diabetes, CVA, myocardial infarction, end-stage renal disease who is on dialysis on Mondays,. Patient presented again to the hospital with shortness of breath, dyspnea, orthopnea. Workup indicating fluid overload. Patient indicates that he has been going to dialysis on a regular basis. He has not skipped any sessions. He states that the only difference between the last time he was here and this time was the fact that he is making less urine than he did before. Chest x-ray again does show pulmonary edema with small bilateral pleural effusions with dense opacity in the left lower lung this correlated with previous CT scan. ER physician did do further workup with mildly elevated troponin level. This is likely secondary to patient's chronic kidney disease. Patient denies any chest pain. Review of EKGs do not indicate any acute abnormality or changes DS: Diagnosis Discharge Diagnosis (1) Ischemic cardiomyopathy: Status: Acute (2) CHF (congestive heart failure): Status: Acute (3) End stage renal disease on dialysis: Status: Acute (4) Diabetes: Status: Acute (5) Hypertension: Status: Acute DS: Summary -End stage renal disease on dialysis. Anuric. Continue hemodialysis per nephrology Bumex 2 mg on nondialysis days 4 times a week Patient presented with fluid overload and symptoms of orthopnea, dyspnea secondary to acute on chronic systolic heart failure. Improved. Lexiscan negative for ischemia. Continue Coreg. Unable to start JOSHUA and Jardiance secondary to end-stage renal disease. Patient was on LifeVest for 6 months. Will clarify with cardiology need for LifeVest or AICD Patient with associated hyperkalemia, improved. Status post Kayexalate Chronic respiratory failure on home oxygen - Hypertension, hyperlipidemia, coronary artery disease and diabetes with. Stable continue medical management Full code. Heparin SQ. Consult case management for home health care PT and visiting nurse Time Spent with Patient Total time spent providing and/or coordinating discharge services: Greater than 30 minutes Quality: VTE Deep Vein Thrombosis/Pulmonary Embolism Present on Admission: No Exam Narrative Exam Narrative: GENERAL: Well-developed and well-nourished in no distress SKIN: Warm and dry. CARDIOVASCULAR: Regular rate and rhythm. Systolic murmur RESPIRATORY: No accessory muscle use. Clear to auscultation. Breath sounds equal bilaterally. GASTROINTESTINAL: Abdomen soft, non-tender, nondistended. MUSCULOSKELETAL: Extremities without clubbing, cyanosis, or edema. No obvious deformities. Right AKA NEUROLOGICAL: Awake and alert. No obvious cranial nerve deficits. Motor grossly within normal limits. Five out of 5 muscle strength in the arms and legs. Normal speech. PSYCHIATRIC: Appropriate mood and affect; insight and judgment normal. Results Labs on day of discharge: Labs from last 24 hours 07/19/18 07/18/18 07/18/18 07:54 21:11 19:10 POC Glucose 112 H 206 H 114 H 07/18/18 07/18/18 13:27 08:37 POC Glucose 201 H 132 H Impressions ITS Impressions Chest X-Ray 07/13/18 15:57 CONCLUSION: Development of a mild pulmonary edema pattern. Small bilateral pleural effusions with dense opacity lower left lung, probably chronic atelectasis when correlated with prior CT from June 29. Abdomen/Bladder Ultrasound 07/15/18 00:00 CONCLUSION: 1. No evidence for obstructive uropathy. 2. Linear echogenicity centrally in the kidneys bilaterally likely reflecting vascular catheter locations. However, cannot exclude nonobstructing calyceal calculi. 3. Small bilateral pleural effusions. Myocardial Perfusion Scan Nuc Med 07/17/18 06:00 CONCLUSION: 1. Severe global hypokinesis with ejection fraction calculated at 9%. 2. Multiple fixed perfusion defects characteristic of prior infarcts. No definite reversibility to suggest ischemia. Discharge Plan Discharge Disposition Patient Disposition: Disch W/Home Health Service Discharge Condition Condition: Stable Discharge Order Discharge Orders: Discharge Order (Routine); Ordered 07/19/18 Ordered By: Patrick Mina Discharge Details Discharge Comment: dc when cleared by cards(clarify need for life vest) Physicians Team Attending Provider: Patrick Mina Other Providers: Awa Vela ; Teodoro Rivas Rxs /Orders / Referrals /Forms Prescriptions: New bumetanide 1 mg Tablet 2 mg PO SuTuThSa Qty: 16 RF: 0 midodrine 5 mg Tablet 10 mg PO BID Qty: 60 RF: 0 carvedilol [Coreg] 6.25 mg Tablet 6.25 mg PO BID Qty: 60 RF: 0 Continue pantoprazole [Protonix] 40 mg Tablet,Delayed Release (Dr/Ec) 40 mg PO DAILY RF: 0 rosuvastatin [Crestor] 40 mg Tablet 40 mg PO DAILY RF: 0 sevelamer HCl 800 mg Tablet 1,600 mg PO TID RF: 0 Discontinued bumetanide 1 mg Tablet 2 mg PO BID RF: 0 labetalol 300 mg Tablet 600 mg PO TID RF: 0 Referrals: POONAM ORTIZ [Other] - See Instructions Awa Vela MD [Physician] - See Instructions (f/ u 1-2 weeks) Primary Care Iris Pfeiffer [Family Provider] - See Instructions (Follow-up PCP in 1 week) Teodoro Rivas MD [Physician] - See Instructions (f/u 1-2 weeks) Post Discharge Care Plan Care Plan Goals: Your Health Problems: Goals to Promote Your Health: * To prevent worsening of your condition * To maintain your health at the optimal level Directions to Meet Your Goals: * Take your medications as prescribed * Follow your dietary instruction * Follow activity as directed * Keep your appointments as scheduled * Take your immunizations and boosters as scheduled * If your symptoms worsen call your PCP * If no PCP go to Urgent Care or Emergency Room Smoking is dangerous to your health. Avoid second hand smoke. You may reach the 24-hour crisis hotline for domestic abuse at . Discharge Interventions Interventions: Discharge Planning - Case Management Last Done: 07/14/18 11:49 Status ED Status: Left Department
[2018-07-19 13:24] VITALS: PULSE 61
[2018-07-19 13:25] VITALS: BP 122/58; TEMP 98; O2SAT 93
--- NOTE | 2018-07-19 14:13 | P.PNCA ---
Subjective Interval history: No CP or SOB, feels much better, hungry Medications and Allergies Allergies Allergy/AdvReac Type Severity Reaction Status Date / Time wool AdvReac Rash, Verified 07/13/18 14:38 Generalized Home Medications Medication Instructions Recorded Confirmed Type pantoprazole [Protonix] 40 mg PO DAILY 06/29/18 07/13/18 History rosuvastatin [Crestor] 40 mg PO DAILY 06/29/18 07/13/18 History sevelamer HCl 1,600 mg PO TID 07/13/18 07/13/18 History Physical Exam Vital signs: Vital Signs 07/18/18 15:00 07/18/18 16:00 07/18/18 19:00 Temperature 98.4 F Pulse Rate 61 62 75 Respiratory Rate 18 Blood Pressure 132/64 Pulse Oximetry 95 07/18/18 20:00 07/18/18 21:00 07/18/18 22:00 Temperature 98.5 F Pulse Rate 76 78 74 Respiratory Rate 20 Blood Pressure 151/67 H Pulse Oximetry 100 07/18/18 23:00 07/19/18 00:00 07/19/18 01:00 Temperature 99.1 F Pulse Rate 65 66 68 Respiratory Rate 16 Blood Pressure 144/66 H Pulse Oximetry 98 07/19/18 02:00 07/19/18 03:00 07/19/18 04:00 Temperature 99.2 F Pulse Rate 61 60 61 Respiratory Rate 16 Blood Pressure 124/60 Pulse Oximetry 100 07/19/18 05:00 07/19/18 06:00 07/19/18 07:00 Temperature Pulse Rate 61 67 70 Respiratory Rate Blood Pressure Pulse Oximetry 07/19/18 08:00 07/19/18 09:00 07/19/18 10:00 Temperature 98.4 F Pulse Rate 62 68 59 L Respiratory Rate 16 Blood Pressure 131/60 Pulse Oximetry 97 07/19/18 11:00 07/19/18 12:00 07/19/18 13:00 Temperature 98 F Pulse Rate 58 L 58 L 61 Respiratory Rate 16 Blood Pressure 122/58 L Pulse Oximetry 93 L Intake & Output 07/18/18 07/19/18 07/19/18 18:59 06:59 18:59 Intake Total 720 / 720 240 / 240 Output Total 0 / 0 3000 / 3000 Balance 720 / 720 -2760 / -2760 Weight 173 lb 15.115 oz Intake: Oral 720 / 720 240 / 240 Output: Urine 0 / 0 Hemodialysis Amount 3000 / 3000 Other: Date of Last Bowel Movement 07/17/18 07/17/18 07/18/18 - Constitutional no acute distress - Routine Neck Exam Present: supple - Routine Respiratory Exam Present: CTA bilaterally - Routine Cardiovascular Exam Present: RRR, S1, S2 - Routine Abdominal Exam Present: soft - Routine Extremities Exam Present: amputation. Absent: edema - Routine Neurological Exam Present: alert, oriented X3 - Routine Psychiatric Exam Present: normal affect Results 07/17/18 05:44 07/17/18 05:44 Intake and Output 07/18/18 07/19/18 07/19/18 22:59 06:59 14:59 Intake Total 720 / 720 240 / 240 Output Total 3000 / 3000 Balance -2280 / -2280 240 / 240 Intake: Oral 720 / 720 240 / 240 Output: Urine 0 / 0 Hemodialysis Amount 3000 / 3000 Other: Date of Last Bowel Movement 07/17/18 07/17/18 07/18/18 Weight 173 lb 15.115 oz - Imaging and Cardiology Imaging: Impressions Myocardial Perfusion Scan Nuc Med 07/17/18 06:00 CONCLUSION: 1. Severe global hypokinesis with ejection fraction calculated at 9%. 2. Multiple fixed perfusion defects characteristic of prior infarcts. No definite reversibility to suggest ischemia. Assessment and Plan - Assessment (1) Ischemic cardiomyopathy Code(s): I25.5 - Ischemic cardiomyopathy Status: Acute (2) CHF (congestive heart failure) Code(s): I50.9 - Heart failure, unspecified Status: Acute (3) End stage renal disease on dialysis Code(s): N18.6 - End stage renal disease; Z99.2 - Dependence on renal dialysis Status: Acute (4) Diabetes Code(s): E11.9 - Type 2 diabetes mellitus without complications Status: Acute (5) Hypertension Code(s): I10 - Essential (primary) hypertension Status: Acute - Plan There are no new cardiac issues noted at this time, remains stable from cardiac standpoint. We will continue with current cardiac treatment plan for CHF and ischemic cardiomyopathy. DC home as planned. (5) Hypertension Qualifiers:
== END 2018-07-19 13:52 | disposition home or self-care (01) | DRG 302 ==
LOC: PHED 14:29 → INTOOBSV 17:37 → PHEDA 17:37 → PH3 20:28 → HCPC 07-17 00:44
PROVIDERS: ADMIT Internal Medicine; ATTEND Internal Medicine
DX: E11.51 Type 2 diabetes mellitus with diabetic peripheral angiopathy without gangrene; N18.6 End stage renal disease; E87.5 Hyperkalemia; I35.8 Other nonrheumatic aortic valve disorders; Z87.891 Personal history of nicotine dependence; Z83.3 Family history of diabetes mellitus; K21.9 Gastro-esophageal reflux disease without esophagitis; Z91.19 Patient's noncompliance with other medical treatment and regimen; E78.5 Hyperlipidemia, unspecified; Z99.81 Dependence on supplemental oxygen; Z79.899 Other long term (current) drug therapy; E11.22 Type 2 diabetes mellitus with diabetic chronic kidney disease; I13.2 Hypertensive heart and chronic kidney disease with heart failure and with stage 5 chronic kidney disease, or end stage renal disease; I50.20 Unspecified systolic (congestive) heart failure; I25.2 Old myocardial infarction; Z89.611 Acquired absence of right leg above knee; I25.10 Atherosclerotic heart disease of native coronary artery without angina pectoris; Z86.73 Personal history of transient ischemic attack (TIA), and cerebral infarction without residual deficits; Z99.2 Dependence on renal dialysis; I25.5 Ischemic cardiomyopathy; I95.9 Hypotension, unspecified; Z82.49 Family history of ischemic heart disease and other diseases of the circulatory system; J98.11 Atelectasis; J96.10 Chronic respiratory failure, unspecified whether with hypoxia or hypercapnia
CPT/HCPCS: 71010; 71045; 76775; 78452; 80048; 80053; 82550; 82948; 82962; 83520; 83880; 84484; 85025; 85610; 90774; 90775; 90784; 90935; 93005; 93017; 93306; 94640; 94664; 94665; 96360; 96372; 96374; 96375; 97162; 99291; A9502; C8952; G0378; J0886; J1644; J1815; J2785; J7030; J7050; P9047; Q4055; Q4081; Q9969